=== PATIENT | male | born 1990 | race Caucasian/White ===

== ENCOUNTER 2023-07-07 19:30 | Observation (INO) | payer MEDICAID, SELFPAY ==
[2023-07-07] VITALS (8 sets, daily range): BP systolic 146–178; BP diastolic 92–127; PULSE 90–118; RESP 16–28; TEMP 36.1–37; O2SAT 97–99; BMI 40.8; BMI 41.3
[2023-07-07 20:47] LABS: Bedside Glucose > 500 mg/dL (74-106)
--- NOTE | 2023-07-07 20:48 | EKG12_ITS ---
Test Reason : GEN ILL Blood Pressure : / mmHG Vent. Rate : 103 BPM Atrial Rate : 103 BPM P-R Int : 152 ms QRS Dur : 086 ms QT Int : 342 ms P-R-T Axes : 047 012 059 degrees QTc Int : 448 ms Sinus tachycardia Cannot rule out Anterior infarct , age undetermined Abnormal ECG Confirmed by GHAZAL NEWTON, MO ([id number]), brands editor ZAHRAA BELL ([id number]) on 07/13/2023 2:06:47 PM Referred By: Confirmed By:BOBBI HARMAN MD
--- NOTE | 2023-07-07 20:49 | EX.ED.DYSGE1 ---
HPI History of Present Illness Chief Complaint: General Illness Narrative Narrative: 33-year-old male presents with generalized illness and not feeling well for the last few weeks. He endorses polyuria and polydipsia as well. Intermittently he has had nausea and vomiting. He states his insides feel like they are burning. He quit smoking over a year ago. He denies other symptoms, no fevers or chills. No exacerbating or alleviating factors. He has a generalized weakness on occasion as well. PFSH PFSH Medical History no medical history no medical history Home Medications hydrocodone-acetaminophen 5-325mg 5mg-325mg 1 - 2 tab PO Q6H PRN PRN Pain ##20 09/22/15 [Rx Last Taken Unknown] omeprazole 20 mg capsule,delayed release 20 mg PO DAILY 09/22/15 [History Last Taken Unknown] Allergy/AdvReac Type Severity Reaction Status Date / Time amoxicillin Allergy Swelling Verified 07/07/23 19:35 Social History Smoking Status: Current every day smoker tobacco type: cigarettes ROS ROS ED ROS Narrative Constitutional: No fever, no chills. Generalized weakness. HEENT: No sore throat. No neck pain. No loss of vision. No rhinorrhea. Cardiovascular: No chest pain. No palpitations. No pedal edema. Respiratory: No cough, no shortness of breath. Abdominal: No abdominal pain. Intermittent nausea and vomiting. Genitourinary: No dysuria. No hematuria. Endocrine: Polyuria. Polydipsia. Musculoskeletal: No myalgias. No arthralgias. Neurologic: No headaches. No dizziness. No lightheadedness. Skin: No rash. No change in color. Psychiatric: No depression. No anxiety. EXAM Physical Exam Narrative Exam Narrative: Afebrile. Vital signs noted. HEENT: Normocephalic. Atraumatic. PERRL, EOMI. Neck soft and supple. No point tenderness or step off. Cardiovascular: Positive tachycardia no murmurs, rubs, or gallops appreciated. Respiratory: No tachypnea. Lungs clear to auscultation bilaterally. Gastrointestinal: Abdomen soft, nontender, with normoactive bowel sounds. No rebound or guarding. Neurological: Awake. Alert. Nonfocal, nonlateralizing. Skin: No rash. Normal color. No pallor. Musculoskeletal: No pedal edema. Full range of motion extremities. Const Vital Signs: 07/07/23 19:31 07/07/23 20:34 07/07/23 20:34 Temperature 97.0 F L 98.6 F Temperature Source Temporal Temporal Pulse Rate 118 H 104 H Respiratory Rate 20 H 20 H Respiratory Effort Short of Breath Labored Respiratory Pattern Kussmaul Blood Pressure 146/127 H 178/126 H Blood Pressure Mean 133 143 Pulse Ox 98 99 Oxygen Delivery Method Room Air Room Air 07/07/23 21:38 07/07/23 21:38 07/07/23 21:42 Temperature 98.3 F Temperature Source Temporal Pulse Rate 98 98 97 Respiratory Rate 22 H 22 H 28 H Respiratory Effort Respiratory Pattern Blood Pressure 178/95 H 178/95 H 178/95 H Blood Pressure Mean 122 122 122 Pulse Ox 98 98 97 Oxygen Delivery Method Room Air Room Air Room Air 07/07/23 22:26 Temperature 98.3 F Temperature Source Temporal Pulse Rate 108 H Respiratory Rate 26 H Respiratory Effort Respiratory Pattern Blood Pressure 162/117 H Blood Pressure Mean 132 Pulse Ox 99 Oxygen Delivery Method Room Air MDM MDM MDM Narrative Medical decision making narrative: The top of the differential diagnosis is new onset diabetes. His micro blood sugar in triage was greater than 600. Additionally, now there is concern for diabetic ketoacidosis. He will be bolused 2 L and comprehensive work-up will be pursued. EG was obtained and interpreted by myself independently as sinus tachycardia at 103 bpm without ectopy or acute ST changes. No STEMI. I reviewed his laboratory work from today and he has slightly elevated white count of 14.1 which I think is nonspecific, hemoglobin 17.5 which might be hemoconcentration with hematocrit 51.4, platelet count normal at 385, CMP is significant for sodium low at 122 with potassium 5.7 but I see no acute EKG changes requiring calcium infusion. His sodium and chloride may be lowered secondary to his hyperglycemia as his glucose is 760 on his CMP. He has an anion gap elevated at 19. AST is low at 12 with ALT normal at 39 with alk phos of 155 which I think is nonspecific. Venous blood gas does show pH of 7.12 with a PCO2 of 29. His serum ketones are moderate. I do think that he does have new onset diabetes and is currently in diabetic ketoacidosis. After 2 L of normal saline infused, his blood sugar is down to the 500s according to the RN. He will be started on an insulin drip at 0.1 units/kg/h. Urinalysis obtained and reviewed which does show glucose and ketones but no evidence of infection. I do not feel antibiotics are indicated. Chest x-ray interpreted by myself independently shows no evidence of an acute process, no pneumonia or pneumothorax. I reviewed the radiology report which confirms my independent interpretation. Given his new onset diabetes and DKA, patient discussed with the hospitalist for admission to the ICU. Critical care time 32 minutes including time spent counseling patient, arranging admission, and consultation with hospitalist. Patient is in guarded but stable condition. History & Record Review Discussion w/independent historian: Patient and Significant other Additional record(s) reviewed:: Prior ED visit Lab Data Attestation: I reviewed the patient's lab results. Labs: Laboratory Results - last 24 hr 07/07/23 07/07/23 07/07/23 20:29 20:40 21:05 WBC 14.1 H RBC 5.80 Hgb 17.5 H Hct 51.4 MCV 88.6 MCH 30.2 MCHC 34.0 RDW Std Deviation 38.5 RDW Coeff of Shantel 12.0 Plt Count 385 MPV 11.2 Immature Gran % (Auto) 2.300 H Neut % (Auto) 76.8 H Lymph % (Auto) 13.7 L [place] % (Auto) 5.6 Eos % (Auto) 0.7 Baso % (Auto) 0.9 Absolute Neuts (auto) 10.8 H Absolute Lymphs (auto) 1.93 Nucleated RBC % 0 Sodium 122 L Potassium 5.7 H Chloride 92 L Carbon Dioxide 11.0 L Anion Gap 19 H BUN 21 H Creatinine 1.58 H Estim Creat Clear Calc 67.12 Est GFR (MDRD) Af Amer 66 Est GFR (MDRD) Non-Af 54 L BUN/Creatinine Ratio 13.3 Glucose 760 H* Calcium 8.8 Total Bilirubin 0.70 AST 12 L ALT 39 Alkaline Phosphatase 155 H Troponin I High Sens 26 Total Protein 8.9 H Albumin 4.4 Globulin 4.5 H Albumin/Globulin Ratio 1.0 Urine Color Yellow Urine Clarity Clear Urine pH 5.0 Ur Specific [place] 1.015 Urine Protein 30 H Urine Glucose (UA) 1000 H Urine Ketones 150 A* Urine Occult Blood 25 H Urine Nitrite Negative Urine Bilirubin Negative Urine Urobilinogen Normal Ur Leukocyte Esterase Negative Urine RBC 0 SEEN Urine WBC 0 SEEN Ur Squamous Epith Cells 0 SEEN Urine Bacteria 0 SEEN Urine Mucus 0 SEEN Acetone Level MODERATE H POC Glucose > 500 H* 07/07/23 22:24 WBC RBC Hgb Hct MCV MCH MCHC RDW Std Deviation RDW Coeff of Shantel Plt Count MPV Immature Gran % (Auto) Neut % (Auto) Lymph % (Auto) [place] % (Auto) Eos % (Auto) Baso % (Auto) Absolute Neuts (auto) Absolute Lymphs (auto) Nucleated RBC % Sodium Potassium Chloride Carbon Dioxide Anion Gap BUN Creatinine Estim Creat Clear Calc Est GFR (MDRD) Af Amer Est GFR (MDRD) Non-Af BUN/Creatinine Ratio Glucose Calcium Total Bilirubin AST ALT Alkaline Phosphatase Troponin I High Sens Total Protein Albumin Globulin Albumin/Globulin Ratio Urine Color Urine Clarity Urine pH Ur Specific [place] Urine Protein Urine Glucose (UA) Urine Ketones Urine Occult Blood Urine Nitrite Urine Bilirubin Urine Urobilinogen Ur Leukocyte Esterase Urine RBC Urine WBC Ur Squamous Epith Cells Urine Bacteria Urine Mucus Acetone Level POC Glucose > 500 H* ABG Data ABG results: ABG 07/07/23 21:21 Specimen Type POLA Sample Site Not entered VBG pH 7.17 L* VBG pO2 36 VBG HCO3 11 L VBG Total CO2 12 L VBG O2 Sat (Calc) 56 VBG Base Excess -18 L POC Mix VBG pCO2 Pt Tmp 29.4 L O2 Delivery Device Not entered Crit Call To/Read Back Yes Blood Gas Notified Whom reodica Blood Gas Notified Time 21:22:42 Radiography Diagnostic Testing: Clinical Impression(s) from Imaging Studies Chest X-Ray 07/07/23 20:52 IMPRESSION: Chest with no acute disease. Electronically Signed: Wild Hearn MD at 21:31 EDT , Management Discussion w/another healthcare provider: Hospitalist Critical Care Time Critical Care Time: Yes Critical care time (excluding procedures): 30-74 minutes (32), Including time spent:, Discussing w/Patient &/or Family/In Store Representative, Discussing w/Consultants and Arranging Admission or Transfer Discharge Plan Dx/Rx/DC Orders Clinical Impression: Diabetic ketoacidosis, Diabetes mellitus, new onset, Nausea and vomiting Disposition Disposition: Acute Care Hospital [facility]
--- NOTE | 2023-07-07 20:52 | RAD_ITS ---
INDICATION: shortness of breath EXAMINATION/TECHNIQUE: X-RAY - XR Chest 1 View COMPARISON: None. Findings: Single frontal view of the chest. LUNG PARENCHYMA: No acute focal airspace disease or mass lesion. PLEURA: No pleural effusion. No pneumothorax. HEART/GREAT VESSELS: Cardiomediastinal silhouette is unremarkable. BONES: Osseous structures are unremarkable for age. RAD/Chest 1 View (Portable) IMPRESSION: Chest with no acute disease. Electronically Signed: Wild Hearn MD at 21:31 EDT ,
[2023-07-07] MEDS: 0.9% Normal Saline (1000mL) 1,000 ML 999 ML IV ×2 (21:02→21:03)
[2023-07-07 21:09] LABS: Absolute Lymphocyte Count 1.93 X10^3/uL (0.83-4.51); Absolute Neutrophil Count 10.8 X10^3/uL (2.0-7.7); Basophil# 0.12 X10^3/uL; Basophil% 0.9 % (0-1); Eosinophils% 0.7 % (0-5); Hematocrit 51.4 % (40-54); Hemoglobin 17.5 g/dL (13.0-16.5); Lymphocyte # 1.93 X10^3/ul (0.83-4.51); Lymphocyte % 13.7 % (19-41); Mean Corpuscular Hgb 30.2 pg (27.0-32.0); Mean Corpuscular Volume 88.6 fL (80-94); Mean Platelet Vol. 11.2 fl (6.2-12.0); Monocyte# 0.79 X10^3/uL; Monocyte% 5.6 % (0-10); NRBC Flagged by Analyzer 0 % (0-5); Neutrophil # 10.84 X10^3/uL (2.7-7.7); Neutrophil % 76.8 % (47-70); Platelet Count 385 K/mm3 (150-450); RBC Distribution Width SD 38.5 fl (35.1-43.9); White Blood Count 14.1 K/mm3 (4.4-11.0)
[2023-07-07 21:17] LABS: Bacteria 0 SEEN /hpf (None Seen); Mucous, Urine 0 SEEN /hpf (<or=2+); Red Blood Cells-Urine 0 SEEN /hpf (0-5); Squamous Epithelial Cells - UA 0 SEEN /hpf (0-5); White Blood Cells 0 SEEN /hpf (0-5)
[2023-07-07 21:25] LABS: Blood Gas Specimen Type VEN; O2 Delivery Device Not entered; SITE Not entered; VBG BASE EXCESS -18 mmol/L (-1.0-3.5); VBG Bicarbonate 11 mmol/L (22-26); VBG PO2 36 mmHg (25-40); VBG SO2 56 % (50-70); VBG TCO2 12 mmol/L (23-33); VBG pCO2 29.4 mmHg (41-51); VBG pH 7.17 (7.32-7.42)
[2023-07-07 21:31] LABS: Color, Urine Yellow (Yellow); Glucose, Dipstick 1000 mg/dl (Normal); Leukocyte Esterase-Dipstick Negative /ul (Negative); Nitrite-Dipstick Negative (Negative); Occult Blood-Urine 25 /ul (Negative); Protein-Dipstick 30 mg/dl (Negative); Specific Gravity, Urine 1.015 (1.002-1.030); Urine Bilirubin Dipstick Negative (Negative); Urine Clarity Clear (Clear); Urine Urobilinogen Normal (Normal)
--- NOTE | 2023-07-07 21:33 | CM.ED ---
Social Work SW met with patient and introduced self and role as [facility] SW. Patient lying on hospital bed and agreeable to speak with SW. SW engaged patient in conversation regarding insurance and community resources. Patient reports discussing completing the Medicaid application with Ginna Holman CM, however, due to patient not feeling well he has not returned to complete. SW provided patient with Medicaid application as well as [employer] resource list. Patient receptive towards resources and reports no other needs. SW remains available if needs arise. Tomeka Hoyt AERIAL PHOTOGRAPHER, KEVIN
[2023-07-07 21:34] LABS: Ketone-Dipstick 150 mg/dl (Negative)
[2023-07-07 21:36] LABS: AST(SGOT) 12 U/L (15-37); Alanine Aminotransfer ALT/SGPT 39 U/L (16-61); Albumin, Serum 4.4 g/dL (3.2-5.0); Alkaline Phosphatase 155 U/L (45-117); Anion Gap 19 (5-15); BUN 21 mg/dL (7-18); BUN/Creat Ratio 13.3 RATIO (10-20); Calcium,Total 8.8 mg/dL (8.5-10.1); Chloride 92 mmol/L (98-107); Creatinine, Serum 1.58 mg/dL (0.70-1.30); EST Glomerular Filtration Rate 54 mL/min (>60); Est Glom Filt Rate - Afr Amer 66 mL/min (>60); Estimated Creatinine Clearance 67.12 ml/min; Globulin 4.5 g/dL (2.2-4.2); Glucose 760 mg/dL (74-106); Potassium 5.7 mmol/L (3.5-5.1); Protein, Total 8.9 g/dL (6.4-8.2); Sodium Level 122 mmol/L (136-145); Troponin-I HS 26 pg/mL (3.0-78.0)
[2023-07-07 22:42] LABS: Bedside Glucose > 500 mg/dL (74-106)
--- NOTE | 2023-07-07 22:47 | HP.PCM.HOS_ITS ---
HPI - General General Date of Admission: 07/07/23 Date of Service: 07/07/23 Chief Complaint: DKA HPI Narrative LURDES HOLDER, is a 33 M with past medical history of morbid obesity, GERD and former smoker who presented to [facility] ED on 07/07/2023 with severe hyperglycemia. Patient seen at bedside in the ED. Sitting comfortably in bed, alert and oriented, conversing normally, no acute distress. Patient states that he has had significant polyuria and polydipsia over the last 2 to 3 weeks. He does not recall having the symptoms prior to about 3 weeks ago. Denies any recent infectious symptoms. Denies any fevers or chills currently. Denies any cough or sputum production. Denies any abdominal pain or discomfort. Denies any discomfort or pain with urination. Patient states that his father and 2 grandparents have had diabetes; he thinks that they were all diagnosed with diabetes as adults. Patient states that he has been overweight for most of his life, no significant changes in his weight recently. Has not been eating well over the past few weeks. States that since IV fluids were started, he has slightly more of an appetite now than he has over the previous few days. He denies any nausea currently. No other acute concerns. Vitals in the ED notable for heart rate in 90s to 100s (sinus rhythm), moderately elevated blood pressures, otherwise normal. Labs notable for glucose 760, pH 7.12, bicarb 11, anion gap of 19, potassium 5.7, sodium 122, creatinine 1.58. UA with 1000 glucose, 150 ketones, 30 protein, negative nitrites or leukocyte esterase. Chest x-ray nonacute. [facility] Medical History no medical history Home Medications NK 07/07/23 [History Last Taken Unknown] Allergy/AdvReac Type Severity Reaction Status Date / Time amoxicillin Allergy Swelling Verified 07/07/23 19:35 Social History Smoking Status: Current some day smoker tobacco type: cigarettes and e- cigarettes ROS Constitutional Constitutional: Reports fatigue; Denies change in weight, chills or fever(s) Eyes Eyes: Denies change in vision Cardiovascular Cardiovascular: Denies chest pain, edema, lightheadedness or palpitations Respiratory/Chest Respiratory/Chest: Denies cough Gastrointestinal Gastrointestinal: Denies abdominal pain, constipation, diarrhea, nausea or vomiting Genitourinary Genitourinary: Denies dysuria Neurologic Neurologic: Denies dizziness Endocrine Endocrinology: Reports polydipsia and polyuria Vital Signs Vital Signs Vital Signs: 07/07/23 19:31 07/07/23 20:34 07/07/23 20:34 Temperature 97.0 F L 98.6 F Temperature Source Temporal Temporal Pulse Rate 118 H 104 H Respiratory Rate 20 H 20 H Respiratory Effort Short of Breath Labored Respiratory Pattern Kussmaul Blood Pressure 146/127 H 178/126 H Blood Pressure Mean 133 143 Pulse Ox 98 99 Oxygen Delivery Method Room Air Room Air 07/07/23 21:38 07/07/23 21:38 07/07/23 21:42 Temperature 98.3 F Temperature Source Temporal Pulse Rate 98 98 97 Respiratory Rate 22 H 22 H 28 H Respiratory Effort Respiratory Pattern Blood Pressure 178/95 H 178/95 H 178/95 H Blood Pressure Mean 122 122 122 Pulse Ox 98 98 97 Oxygen Delivery Method Room Air Room Air Room Air 07/07/23 22:26 Temperature 98.3 F Temperature Source Temporal Pulse Rate 108 H Respiratory Rate 26 H Respiratory Effort Respiratory Pattern Blood Pressure 162/117 H Blood Pressure Mean 132 Pulse Ox 99 Oxygen Delivery Method Room Air Weight Weight: 125.645 kg Body Mass Index (BMI) 40.8 Physical Exam Const alert, oriented x3, no apparent distress, healthy appearing and well nourished Constitutional Narrative: Pleasant male, morbidly obese, sitting comfortably in bed, conversing normally, no acute distress. General Appearance: cooperative, comfortable, well kempt and well developed HEENT normocephalic, head/scalp atraumatic, hearing grossly normal bilaterally, nasal mucous membranes and turbinates normal and moist oral mucous membranes Eyes PERRL, EOMs intact bilaterally and conjunctivae normal Neck full ROM, no lymphadenopathy and supple Lymph Lymphatic: no lymphadenopathy noted Chest inspection of chest normal Resp normal respiratory effort, normal air movement, no use of accessory muscles and clear to auscultation bilaterally Cardio regular rate, regular rhythm, no murmurs and peripheral pulses 2+ throughout GI normal to inspection, nondistended, normoactive bowel sounds, soft to palpation, non-tender and non-distended Back/Spine normal ROM Extremity normal to inspection, full ROM and no pedal edema Skin no rashes or lesions noted Psych mental status grossly normal Results Lab / Micro Data 07/07/23 20:40 07/07/23 20:40 Labs: Laboratory Results - last 24 hr 07/07/23 20:29: POC Glucose > 500 H* 07/07/23 20:40: WBC 14.1 H, RBC 5.80, Hgb 17.5 H, Hct 51.4, MCV 88.6, MCH 30.2, MCHC 34.0, RDW Std Deviation 38.5, RDW Coeff of Shantel 12.0, Plt Count 385, MPV 11 .2, Immature Gran % (Auto) 2.300 H, Neut % (Auto) 76.8 H, Lymph % (Auto) 13.7 L, Porter % (Auto) 5.6, Eos % (Auto) 0.7, Baso % (Auto) 0.9, Absolute Neuts (auto) 10.8 H, Absolute Lymphs (auto) 1.93, Nucleated RBC % 0, Sodium 122 L, Potassium 5.7 H, Chloride 92 L, Carbon Dioxide 11.0 L, Anion Gap 19 H, BUN 21 H, Creatinine 1.58 H, Estim Creat Clear Calc 67.12, Est GFR (MDRD) Af Amer 66, Est GFR (MDRD) Non-Af 54 L, BUN/Creatinine Ratio 13.3, Glucose 760 H*, Calcium 8.8, Total Bilirubin 0.70, AST 12 L, ALT 39, Alkaline Phosphatase 155 H, Troponin I High Sens 26, Total Protein 8.9 H, Albumin 4.4, Globulin 4.5 H, Albumin/Globulin Ratio 1.0, Acetone Level MODERATE H 07/07/23 21:05: Urine Color Yellow, Urine Clarity Clear, Urine pH 5.0, Ur Specific [place] 1.015, Urine Protein 30 H, Urine Glucose (UA) 1000 H, Urine Ketones 150 A*, Urine Occult Blood 25 H, Urine Nitrite Negative, Urine Bilirubin Negative, Urine Urobilinogen Normal, Ur Leukocyte Esterase Negative, Urine RBC 0 SEEN, Urine WBC 0 SEEN, Ur Squamous Epith Cells 0 SEEN, Urine Bacteria 0 SEEN, Urine Mucus 0 SEEN 07/07/23 22:24: POC Glucose > 500 H* ABG Data ABG results: ABG 07/07/23 21:21 Specimen Type POLA Sample Site Not entered VBG pH 7.17 L* VBG pO2 36 VBG HCO3 11 L VBG Total CO2 12 L VBG O2 Sat (Calc) 56 VBG Base Excess -18 L POC Mix VBG pCO2 Pt Tmp 29.4 L O2 Delivery Device Not entered Crit Call To/Read Back Yes Blood Gas Notified Whom raymundo Blood Gas Notified Time 21:22:42 Radiology Impression Chest X-Ray 07/07/23 20:52 IMPRESSION: Chest with no acute disease. Electronically Signed: Wild Hearn MD at 21:31 EDT , Assessment & Plan Assessment/Plan (1) Diabetic ketoacidosis: PLAN: Plan Patient is a 33-year-old male with past medical history of morbid obesity, GERD and former smoker who presented to [facility] ED on 07/07/2023 with severe hyperglycemia. 1. Diabetic ketoacidosis, new diagnosis of diabetes mellitus No history of diabetes. Seems most likely type 2 diabetes given patient's age, morbid obesity, family history (father, 2 grandparents with type 2 diabetes) but cannot rule out type 1 diabetes. Low concern for secondary etiology causing severe hyperglycemia, including low concern for active infection. Labs on admit with glucose 760, pH 7.12, bicarb 11, anion gap of 19, potassium 5.7, sodium 122. UA with 1000 glucose, 150 ketones. Received 2 L bolus of normal saline in the ED then initiated on insulin drip. ? Admit to ICU. Continue insulin drip with protocol. LR 150 ml/hr. BMP every 4 hours. NPO. Endocrinology consulted. Intended to send EDEN-65 antibody, however this order was not available. A1c ordered. 2. Elevated blood pressure readings May be secondary to acute stress state, but suspect patient may have underlying undiagnosed essential hypertension. BP 178/95 on admit, remain consistently in the 160s to 170s systolic with some diastolic readings in the 110s. ? IV labetalol 10 mg every 4 hours as needed ordered for now. Can consider adding oral agent as needed. 3. Suspected DARINEL Very likely prerenal in setting of volume depletion from DKA. Creatinine 1.58 on admit, BUN 21, no known baseline. ? Monitor BMP post volume resuscitation. Patient has had heavy urine output, will hold on imaging. If DARINEL does not resolve after fluids, can consider further work-up. 4. Leukocytosis WBC count of 14 on admit. Suspect most likely due to hemoconcentration in setting of significant hypovolemia from DKA. Vitals stable, patient afebrile. Chest x-ray nonacute. UA with no concern for UTI. ? Monitor CBC. Low concern for infection, hold on further work-up for now. 5. Pseudohyponatremia ? Sodium 122 on admit. Secondary to severe hyperglycemia. Corrected sodium 133. Monitor BMP. Chronic medical conditions: ? GERD: Continue home omeprazole ? Morbid obesity: BMI 41. Encouraged lifestyle modifications. DVT prophylaxis: Heparin subcu CODE STATUS: Full code, verified Expected disposition: Home, TBD Total clinical time spent by myself addressing the patient's medical issues, reviewing all the data, and collaborating with patient's care team: 55 minutes. Charges/Coding Visit Charges Inpatient E&M: 67879 Init Hosp L2
[2023-07-07] MEDS: Insulin Lispro 100 UNIT in 0.9% Normal Saline (100mL Bag) 99 ML 12.6 UNIT CONT INF (23:02)
[2023-07-07 23:27] LABS: Bedside Glucose > 500 mg/dL (74-106)
[2023-07-08] VITALS (21 sets, daily range): BP systolic 113–156; BP diastolic 70–108; PULSE 83–113; RESP 15–24; TEMP 35.8–36.2; O2SAT 95–99; BMI 41.4
[2023-07-08] MEDS: Lactated Ringers 1,000 ML 150 ML IV ×4 (00:34→20:23)
[2023-07-08 01:21] LABS: Hemoglobin A1c 12.1 % (3.8-5.6)
[2023-07-08 01:32] LABS: Anion Gap 17 (5-15); BUN 18 mg/dL (7-18); BUN/Creat Ratio 14.9 RATIO (10-20); Calcium,Total 8.4 mg/dL (8.5-10.1); Chloride 106 mmol/L (98-107); Creatinine, Serum 1.21 mg/dL (0.70-1.30); Estimated Creatinine Clearance 87.64 ml/min; Glucose 381 mg/dL (74-106); Potassium 3.8 mmol/L (3.5-5.1); Sodium Level 135 mmol/L (136-145)
[2023-07-08 02:08] LABS: Cholesterol 199 mg/dL (200); High Density Lipoprotein 20 mg/dL; Thyroid Stim Hormone (TSH) 4.64 uIU/mL (0.358-3.74); Triglycerides 642 mg/dL
[2023-07-08 02:12] LABS: EST Glomerular Filtration Rate 74 mL/min (>60); Est Glom Filt Rate - Afr Amer 89 mL/min (>60)
[2023-07-08 02:23] LABS: Bedside Glucose 321 mg/dL (74-106)
[2023-07-08 02:23] LABS: Bedside Glucose 331 mg/dL (74-106)
[2023-07-08 02:23] LABS: Bedside Glucose 405 mg/dL (74-106)
[2023-07-08 04:19] LABS: Hematocrit 43.7 % (40-54); Hemoglobin 15.2 g/dL (13.0-16.5); Mean Corp Hgb Conc 34.8 g/dL (32-36); Mean Corpuscular Hgb 30.2 pg (27.0-32.0); Mean Corpuscular Volume 86.9 fL (80-94); Mean Platelet Vol. 10.6 fl (6.2-12.0); Platelet Count 298 K/mm3 (150-450); RBC Distribution Width SD 38.1 fl (35.1-43.9); Red Blood Count 5.03 M/mm3 (4.6-6.2); White Blood Count 11.5 K/mm3 (4.4-11.0)
[2023-07-08 04:35] LABS: Anion Gap 12 (5-15); BUN 15 mg/dL (7-18); Calcium,Total 8.3 mg/dL (8.5-10.1); Chloride 108 mmol/L (98-107); Creatinine, Serum 1.07 mg/dL (0.70-1.30); EST Glomerular Filtration Rate 85 mL/min (>60); Est Glom Filt Rate - Afr Amer 103 mL/min (>60); Estimated Creatinine Clearance 99.11 ml/min; Glucose 278 mg/dL (74-106); Potassium 3.7 mmol/L (3.5-5.1); Sodium Level 137 mmol/L (136-145)
[2023-07-08] MEDS: Heparin Injection (Vial) 5,000 UNIT/ML VIAL 5000 UNIT SC ×3 (05:00→21:46)
[2023-07-08 07:14] LABS: Bedside Glucose 276 mg/dL (74-106)
[2023-07-08 07:14] LABS: Bedside Glucose 275 mg/dL (74-106)
[2023-07-08 07:14] LABS: Bedside Glucose 241 mg/dL (74-106)
[2023-07-08 07:14] LABS: Bedside Glucose 244 mg/dL (74-106)
[2023-07-08 07:14] LABS: Bedside Glucose 251 mg/dL (74-106)
[2023-07-08 08:22] LABS: Free T3 1.5 pg/mL (2.18-3.98); Free T4 0.87 ng/dL (0.76-1.46)
[2023-07-08 08:47] LABS: Anion Gap 10 (5-15); BUN 14 mg/dL (7-18); BUN/Creat Ratio 15.1 RATIO (10-20); Chloride 109 mmol/L (98-107); Creatinine, Serum 0.93 mg/dL (0.70-1.30); EST Glomerular Filtration Rate 100 mL/min (>60); Est Glom Filt Rate - Afr Amer 121 mL/min (>60); Estimated Creatinine Clearance 114.03 ml/min; Glucose 235 mg/dL (74-106); Potassium 4.1 mmol/L (3.5-5.1); Sodium Level 137 mmol/L (136-145)
[2023-07-08] MEDS: Pantoprazole Sodium 20 MG Tablet PO (09:25)
[2023-07-08 10:24] LABS: Bedside Glucose 218 mg/dL (74-106)
[2023-07-08 10:25] LABS: Bedside Glucose 226 mg/dL (74-106)
[2023-07-08] MEDS: Insulin Lispro 100 UNIT/ML INSULN.PEN SC ×3 (11:56→21:45)
[2023-07-08] MEDS: Insulin Glargine-YFGN 100 UNIT/ML Pen 10 UNIT SC (11:56)
[2023-07-08 12:05] LABS: Bedside Glucose 207 mg/dL (74-106)
--- NOTE | 2023-07-08 12:15 | CASEMGMT ---
Social Work SW introduced self and role to patient. SW discussed patient's needs with patient. Pt is listed as self-pay. SW provided a medicaid application, [email or web address] info, [employer]ire list, PCP info, and People to people resources. Pt reports he would like to apply for medicaid but he has not before and is concerned about filling out the application. SW provided support and notified patient that [employer] will be contacted for possible assistance in applying for medicaid. Pt denied any further needs. SW left voicemail for [employer] regarding medicaid assistance. Kate Luque BREWERY TECHNICIAN, DOUBLE NEEDLE OPERATOR
--- NOTE | 2023-07-08 14:40 | CASEMGMT ---
VIVIANE RICHARDSON Face to Face with patient for initial transition planning/care coordination assessment. VIVIANE RICHARDSON introduced self and role at [facility]. Patient lying in bed, alert and oriented, significant other at bedside. Patient willing to participate in assessment and is able to answer all questions appropriately. Care providers, pharmacy, and demographics verified. Patient wishes to discharge home, denies need for home health at this time. Patient states he has no further needs or concerns at this time. CM to follow for discharge planning needs that may arise. PCP: No PCP, did follow at [facility]. Specialists: none Preferred Pharmacy: [facility] Insurance: none Prescription Benefit: none Living Will/HPOA: none LNOK: significant other Living Arrangements: Patient lives with significant other in a 3 story home. Patient is independent and able to ambulate stairs. Transportation: self, significant other DME/HHC: Patient denies DME in the home. VIVIANE RICHARDSON discussed over the counter glucometer available at [facility]. Significant other states she will pickling machine operator glucometer and bring to hospital for teaching. Disposition Plan: Patient to discharge home with family support and follow-up plans in place. Pura ZAMARRIPA, RN, CM
--- NOTE | 2023-07-08 15:02 | PN_ITS ---
Subjective Subjective Patient seen and examined. He had no complaints and had an uneventful night. Review of systems is otherwise negative. Anion gap has closed twice. Review of systems is otherwise negative. Objective Data Objective Data Vital Signs: Vital Signs Temp Pulse Resp BP Pulse Ox O2 Del Method 96.9 F L 86 15 134/77 H 98 Room Air 07/08/23 13:00 07/08/23 14:00 07/08/23 14:00 07/08/23 14:00 07/08/23 14:00 07/08/23 14:00 Oxygen Delivery Method Room Air Weight: 279 lb 15.793 oz Body Mass Index (BMI) 41.4 Intake & Output: Intake and Output for Last 24 Hours 07/06/23 07/07/23 07/08/23 23:59 23:59 23:59 Intake Total 1016.65 / 1016.65 2477.18 / 2477.18 Output Total 1974 Balance 1016.65 / 1016.65 502.18 / 502.18 Lab / Micro Data 07/08/23 04:00 07/08/23 08:15 Labs: Laboratory Results - last 24 hr 07/07/23 20:29: POC Glucose > 500 H* 07/07/23 20:40: WBC 14.1 H, RBC 5.80, Hgb 17.5 H, Hct 51.4, MCV 88.6, MCH 30.2, MCHC 34.0, RDW Std Deviation 38.5, RDW Coeff of Shantel 12.0, Plt Count 385, MPV 11.2, Immature Gran % (Auto) 2.300 H, Neut % (Auto) 76.8 H, Lymph % (Auto) 13.7 L, [place] % (Auto) 5.6, Eos % (Auto) 0.7, Baso % (Auto) 0.9, Absolute Neuts (auto) 10.8 H, Absolute Lymphs (auto) 1.93, Nucleated RBC % 0, Sodium 122 L 07/07/23 20:40: Sodium Cancelled, Potassium 5.7 H 07/07/23 20:40: Potassium Cancelled, Chloride 92 L 07/07/23 20:40: Chloride Cancelled, Carbon Dioxide 11.0 L 07/07/23 20:40: Carbon Dioxide Cancelled, Anion Gap 19 H 07/07/23 20:40: Anion Gap Cancelled, BUN 21 H 07/07/23 20:40: BUN Cancelled, Creatinine 1.58 H 07/07/23 20:40: Creatinine Cancelled, Estim Creat Clear Calc 67.12 07/07/23 20:40: Estim Creat Clear Calc Cancelled, Est GFR (MDRD) Af Amer 66 07/07/23 20:40: Est GFR (MDRD) Af Amer Cancelled, Est GFR (MDRD) Non-Af 54 L 07/07/23 20:40: Est GFR (MDRD) Non-Af Cancelled, BUN/Creatinine Ratio 13.3 07/07/23 20:40: BUN/Creatinine Ratio Cancelled, Glucose 760 H* 07/07/23 20:40: Glucose Cancelled, Calcium 8.8 07/07/23 20:40: Calcium Cancelled, Total Bilirubin 0.70, AST 12 L, ALT 39, Alkaline Phosphatase 155 H, Troponin I High Sens 26, Total Protein 8.9 H, Albumin 4.4, Globulin 4.5 H, Albumin/Globulin Ratio 1.0, Acetone Level MODERATE H 07/07/23 21:05: Urine Color Yellow, Urine Clarity Clear, Urine pH 5.0, Ur Specific [place] 1.015, Urine Protein 30 H, Urine Glucose (UA) 1000 H, Urine Ketones 150 A*, Urine Occult Blood 25 H, Urine Nitrite Negative, Urine Bilirubin Negative, Urine Urobilinogen Normal, Ur Leukocyte Esterase Negative, Urine RBC 0 SEEN, Urine WBC 0 SEEN, Ur Squamous Epith Cells 0 SEEN, Urine Bacteria 0 SEEN, Urine Mucus 0 SEEN 07/07/23 22:24: POC Glucose > 500 H* 07/07/23 23:00: POC Glucose > 500 H* 07/08/23 00:06: POC Glucose 405 H 07/08/23 00:32: Sodium 135 L, Potassium 3.8, Chloride 106, Carbon Dioxide 12.0 L , Anion Gap 17 H, BUN 18, Creatinine 1.21, Estim Creat Clear Calc 87.64, Est GFR (MDRD) Af Amer 89, Est GFR (MDRD) Non-Af 74, BUN/Creatinine Ratio 14.9, Glucose 381 H, Hemoglobin A1c 12.1 H, Calcium 8.4 L, Triglycerides 642 H, Cholesterol 199, LDL Cholesterol TNP, VLDL Cholesterol TNP, HDL Cholesterol 20 L, TSH 4.64 H , Free T4 0.87, Free T3 pg/dL 1.5 L 07/08/23 01:22: POC Glucose 331 H 07/08/23 02:03: POC Glucose 321 H 07/08/23 03:00: POC Glucose 276 H 07/08/23 04:00: WBC 11.5 H, RBC 5.03, Hgb 15.2, Hct 43.7, MCV 86.9, MCH 30.2, MCHC 34.8, RDW Std Deviation 38.1, RDW Coeff of Shantel 12.0, Plt Count 298, MPV 10.6, Sodium 137, Potassium 3.7, Chloride 108 H, Carbon Dioxide 17.0 L, Anion Gap 12, BUN 15, Creatinine 1.07, Estim Creat Clear Calc 99.11, Est GFR (MDRD) Af Amer 103, Est GFR (MDRD) Non-Af 85, BUN/Creatinine Ratio 14.0, Glucose 278 H, Calcium 8.3 L 07/08/23 04:04: POC Glucose 275 H 07/08/23 04:57: POC Glucose 251 H 07/08/23 06:04: POC Glucose 244 H 07/08/23 06:56: POC Glucose 241 H 07/08/23 08:13: POC Glucose 218 H 07/08/23 08:15: Sodium 137, Potassium 4.1, Chloride 109 H, Carbon Dioxide 18.0 L , Anion Gap 10, BUN 14, Creatinine 0.93, Estim Creat Clear Calc 114.03, Est GFR (MDRD) Af Amer 121, Est GFR (MDRD) Non-Af 100, BUN/Creatinine Ratio 15.1, Glucose 235 H, Calcium 8.0 L 07/08/23 10:07: POC Glucose 226 H 07/08/23 11:47: POC Glucose 207 H ABG Data ABG results: ABG 07/07/23 21:21 Specimen Type POLA Sample Site Not entered VBG pH 7.17 L* VBG pO2 36 VBG HCO3 11 L VBG Total CO2 12 L VBG O2 Sat (Calc) 56 VBG Base Excess -18 L POC Mix VBG pCO2 Pt Tmp 29.4 L O2 Delivery Device Not entered Crit Call To/Read Back Yes Blood Gas Notified Whom raymundo Blood Gas Notified Time 21:22:42 Radiography Diagnostic Testing: Radiology Impression Chest X-Ray 07/07/23 20:52 IMPRESSION: Chest with no acute disease. Electronically Signed: Wild Hearn MD at 21:31 EDT , Physical Exam Const alert, oriented x3 and no apparent distress Constitutional Narrative: obese General Appearance: cooperative and well developed HEENT normocephalic, head/scalp atraumatic, moist oral mucous membranes and oropharynx normal Eyes PERRL and EOMs intact bilaterally Neck no lymphadenopathy, supple and no JVD Lymph Lymphatic: no lymphadenopathy noted Resp normal respiratory effort, normal air movement and clear to auscultation bilaterally Cardio regular rate, regular rhythm, S1 normal heart sound, S2 normal heart sound and no murmurs GI normal to inspection, nondistended, normoactive bowel sounds, soft to palpation, non-tender and non-distended Extremity normal capillary refill, no clubbing, cyanosis or edema and no calf tenderness General Extremity: no tenderness to palpation of joints or extremities Skin General Skin Exam: no breakdown Neuro CN's II-XII intact bilaterally, no focal motor deficits, no sensory deficits noted and deep tendon reflexes 2+ bilaterally Motor Exam: strength 5/5 throughout and general weakness Psych thought process normal, cooperative and affect normal Appearance: appropriate Assessment & Plan Assessment/Plan (1) Diabetes mellitus, new onset: (2) Diabetic ketoacidosis: PLAN: Plan #DKA in a newly diagnosed diabetes jordon * anion gap has closed twice. * A1C is elevated at 12.1 * Not a known diabetic but had had a history of polyuria and polydipsia, and had a strong family history of diabetes * anion gap had closed x 2' * will dc insulin drip and start on Insulin SQ lantus 10 units qhs * ISS. Accuchecks ACHS. * start on metformin 1000mg bid * * #DARINEL: resolved. Cr has trended down #Elevated BP: #Elevated TSH: * TSH is 4.64. Free T4 is WNL and free T3 is low at 1.5 * will repeat labs when he is out of [facility] to confirm abnormal thyroid function tests before starting treatment * #PSeudohyponatremia: resolved. Sodium is now 137 #GERD; on PPI #Morbid obesity; BMI is 41. Complicates acute care, expected recovery and prognosis. DVT prophylaxis: heparin DispositioN; transfer out of ICU Charges/Coding Visit Charges Inpatient E&M: 35496 Subs Hosp L2
[2023-07-08 18:05] LABS: Bedside Glucose 349 mg/dL (74-106)
[2023-07-08 22:07] LABS: Bedside Glucose 382 mg/dL (74-106)
[2023-07-09 02:00] VITALS: BP 133/94; PULSE 75; RESP 18; TEMP 36.2; O2SAT 96
[2023-07-09] MEDS: Insulin Lispro 100 UNIT/ML INSULN.PEN SC ×5 (02:49→20:54)
[2023-07-09 03:16] LABS: Bedside Glucose 246 mg/dL (74-106)
[2023-07-09] MEDS: Heparin Injection (Vial) 5,000 UNIT/ML VIAL 5000 UNIT SC ×2 (05:18→20:53)
[2023-07-09 08:22] LABS: Bedside Glucose 245 mg/dL (74-106)
[2023-07-09 09:07] LABS: Absolute Lymphocyte Count 1.69 X10^3/uL (0.83-4.51); Absolute Neutrophil Count 3.3 X10^3/uL (2.0-7.7); Basophil# 0.08 X10^3/uL; Basophil% 1.4 % (0-1); Eosinophil# 0.23 X10^3/uL; Hematocrit 40.5 % (40-54); Hemoglobin 13.8 g/dL (13.0-16.5); Lymphocyte # 1.69 X10^3/ul (0.83-4.51); Lymphocyte % 29.4 % (19-41); Mean Corp Hgb Conc 34.1 g/dL (32-36); Mean Corpuscular Hgb 29.9 pg (27.0-32.0); Mean Corpuscular Volume 87.9 fL (80-94); Mean Platelet Vol. 10.8 fl (6.2-12.0); Monocyte# 0.34 X10^3/uL; Monocyte% 5.9 % (0-10); NRBC Flagged by Analyzer 0 % (0-5); Neutrophil # 3.25 X10^3/uL (2.7-7.7); Neutrophil % 56.5 % (47-70); Platelet Count 202 K/mm3 (150-450); RBC Distribution Width CV 12.3 % (11.6-14.6); RBC Distribution Width SD 39.2 fl (35.1-43.9); Red Blood Count 4.61 M/mm3 (4.6-6.2); White Blood Count 5.8 K/mm3 (4.4-11.0)
[2023-07-09 09:31] LABS: Anion Gap 10 (5-15); BUN 13 mg/dL (7-18); BUN/Creat Ratio 16.5 RATIO (10-20); Chloride 109 mmol/L (98-107); Creatinine, Serum 0.79 mg/dL (0.70-1.30); EST Glomerular Filtration Rate 121 mL/min (>60); Est Glom Filt Rate - Afr Amer 147 mL/min (>60); Estimated Creatinine Clearance 134.24 ml/min; Glucose 331 mg/dL (74-106); Potassium 3.7 mmol/L (3.5-5.1); Sodium Level 136 mmol/L (136-145)
[2023-07-09 10:23] VITALS: BP 145/93; PULSE 91; RESP 16; TEMP 36.1; O2SAT 95
[2023-07-09] MEDS: Insulin Glargine-YFGN 100 UNIT/ML Pen 10 UNIT SC ×2 (10:26→20:54)
[2023-07-09] MEDS: Pantoprazole Sodium 20 MG Tablet PO (10:26)
--- NOTE | 2023-07-09 11:12 | DCINST_ITS ---
Discharge Instructions Diet Discharge Diet: 1800 Calorie Control Diet Activity Discharge Activity: Return to Normal Activity Weight Bearing Status: Weight bearing as tolerated Dressing / Incision Call your doctor if you observe: Fever of 101 or Higher, Shortness of breath, Dizziness, Swelling in the ankles and Chest pain Follow Up Care Test Results: Test results from this visit will be discussed in further detail at your follow- up appointment, if applicable. Discharge Plan Admission Admit Date/Time: 07/07/23 22:51 Primary Reason for Your Visit: DKA in a newly diagnosed diabetic Attending Provider: Tonja Lemus Primary Care Provider: Care Physician,No Primary Consulting Providers: Abraham Montano; Vijay Brady; Evelin Yanes Instructions Patient Instructions: Diabetes Blood Glucose Check Ch, Ketoacidosis Ch, Diabetes Care Ch Discharge Orders/Prescriptions Prescriptions: New insulin glargine [Lantus Solostar U-100 Insulin] 100 unit/mL (3 mL) insulin pen 10 unit subcut QPM Qty: 15 3RF metformin 500 mg tablet 500 mg PO BID Qty: 60 2RF (DME) pen needle, diabetic [BD Ultra-Fine Diana Pen Needle] 32 gauge x 5/32 needle See Rx Instructions .Route Qty: 1200 1RF Rx Instructions: bid (DME) lancets-blood glucose strips 30 gauge combo pack See Rx Instructions .Route Qty: 420 1RF Rx Instructions: As directed Referrals / Follow Up: Regulo Farrar MD [Med Staff - Active Staff] - Within 2 Weeks (see to establish PCP care) Vijay Brady MD [Med Staff - Courtesy Staff] - Within 2 Weeks (see to establish care for diabetes ) Care Physician,No Primary [Primary Care Provider] - Disposition Disposition (needs filled in before D/C Order can be placed): Home, Self Care
--- NOTE | 2023-07-09 11:13 | DS.PCM_ITS ---
Providers Date of Admission: 07/07/23 Date of Discharge: 07/10/23 Primary Care Physician: [facility] Consultations 07/07/23 23:36 Consult: Endocrinology Routine Consulting Provider: Mildred [facility] Reason for Consult: DKA, new diabetes diagnosis EMERGENT Consult: No MD Notified: Yes Date Notified: 07/07/23 Time Notified: 23:09 Method of Notification: Answering Service Reason For Visit: DKA Diagnosis Discharge Diagnosis (1) Diabetes mellitus, new onset: Status: Acute Code(s): E11.9 - Type 2 diabetes mellitus without complications (2) Diabetic ketoacidosis: Status: Acute Code(s): E11.10 - Type 2 diabetes mellitus with ketoacidosis without coma Plan #DKA in a newly diagnosed diabetes mellius * anion gap has closed twice. * A1C is elevated at 12.1 * Not a known diabetic but had had a history of polyuria and polydipsia, and had a strong family history of diabetes * anion gap had closed x 2' * will dc insulin drip and start on Insulin SQ lantus 10 units qhs * ISS. Accuchecks ACHS. * start on metformin 1000mg bid * * #DARINEL: resolved. Cr has trended down #Elevated TSH: * TSH is 4.64. Free T4 is WNL and free T3 is low at 1.5 * will repeat labs when he is out of [facility] to confirm abnormal thyroid function tests before starting treatment * #PSeudohyponatremia: resolved. Sodium is now 137 #GERD; on PPI #Morbid obesity; BMI is 41. Complicates acute care, expected recovery and prognosis. DVT prophylaxis: heparin DispositioN; transfer out of ICU Medications at Discharge Home Medications lancets 30 gauge and blood glucose strips combo pack #420 ea 07/09/23 metformin 500 mg tablet 500 mg PO BID #60 tabs 07/09/23 pen needle, diabetic 32 gauge x 5/32 (BD Ultra-Fine Diana Pen Needle) #1,200 ea 07/09/23 insulin glargine 100 unit/mL (3 mL) subcutaneous pen (Lantus Solostar U-100 Insulin) 10 unit (0.1 mL) subcut BID #15 mL 07/10/23 Hospital Course Operations None Procedures None Summary of Care Provided Minutes Spent on Discharge: 50 Hospital Course: Patient is a 33-year-old male with past medical history as outlined who was admitted through the ED on 07/07/2023 with a complaint of polyuria and poly dipsia. Symptoms have been going on for about 3 weeks prior to admission. He denied any fever or chills. He had a strong family history of diabetes. He had also not been eating well for several days prior to admission. He therefore came into the ED where he was found to have markedly elevated blood sugars. Blood sugar was 760 in the ED with ABG showing pH of 7.12 and bicarb of 11. Anion gap was 19 and potassium was elevated at 5.7 with sodium of 122. Creatinine was also 1.58. Chest x-ray showed no acute cardiopulmonary process. He was admitted and managed for DKA and newly diagnosed diabetic. He was started on insulin drip and admitted to the ICU. His gap subsequently closed x2 when he was placed on subcu insulin 10 units daily. This was titrated upwards to 10 units twice daily as blood sugars remained elevated. Blood sugar control subsequently improved. A1c was 12.1. Thyroid function test done showed elevated TSH of 4.64. Free T4 was within normal limits and free T3 was slightly low at 1.5. Recommendation was for patient to repeat labs once he was out of the ICU and out of the hospital to check to see if that thyroid function test were still abnormal for treatment to be commenced as needed by his PCP. He remained stable and was discharged on 07/10/2023. He was discharged on subcu Lantus 10 units twice daily as well as p.o. metformin 500 mg twice daily. He w as counseled to follow-up with endocrinology as well as his PCP for adjustment of his insulin dose and to be switched to newer modalities for diabetes treatment once sugars were better controlled. Patient seen and examined prior to discharge. He felt much better and had no complaints. Review of systems otherwise negative. Labs and vitals reviewed. Home medication reviewed and reconciled. Physical Exam Const alert, oriented x3, no apparent distress, healthy appearing and well nourished Constitutional Narrative: obese General Appearance: cooperative, comfortable, well kempt and well developed HEENT normocephalic, head/scalp atraumatic, hearing grossly normal bilaterally, nasal mucous membranes and turbinates normal, moist oral mucous membranes and oropharynx normal Mouth: oral and palatal mucosa normal Eyes PERRL, EOMs intact bilaterally and conjunctivae normal Neck full ROM, no lymphadenopathy, supple and no JVD Lymph Lymphatic: no lymphadenopathy noted and no lymphedema noted Chest inspection of chest normal Resp normal respiratory effort, normal air movement, no retractions, no use of accessory muscles and clear to auscultation bilaterally Cardio regular rate, regular rhythm, S1 normal heart sound, S2 normal heart sound, no murmurs and peripheral pulses 2+ throughout GI normal to inspection, nondistended, normoactive bowel sounds, soft to palpation, non-tender and non-distended Back/Spine normal ROM Extremity normal to inspection, full ROM, normal capillary refill, no clubbing, cyanosis or edema, no calf tenderness and no pedal edema General Extremity: no tenderness to palpation of joints or extremities Skin no rashes or lesions noted General Skin Exam: no breakdown Neuro oriented x3, CN's II-XII intact bilaterally, moves all extremities, no focal motor deficits, no sensory deficits noted and deep tendon reflexes 2+ bilaterally Motor Exam: strength 5/5 throughout and general weakness Psych mental status grossly normal, thought process normal, cooperative and affect normal Appearance: appropriate Weight / BMI Weight Weight: 279 lb 15.793 oz Body Mass Index (BMI) 41.4 ABG / Lab / Microbiology Data 07/10/23 03:40 07/10/23 03:40 Laboratory: Laboratory Results - last 24 hr 07/08/23 11:47: POC Glucose 207 H 07/08/23 16:40: POC Glucose 349 H 07/08/23 21:44: POC Glucose 382 H 07/09/23 02:48: POC Glucose 246 H 07/09/23 08:01: POC Glucose 245 H 07/09/23 08:53: WBC 5.8, RBC 4.61, Hgb 13.8, Hct 40.5, MCV 87.9, MCH 29.9, MCHC 34.1, RDW Std Deviation 39.2, RDW Coeff of Shantel 12.3, Plt Count 202, MPV 10.8, Immature Gran % (Auto) 2.800 H, Neut % (Auto) 56.5, Lymph % (Auto) 29.4, [place] % (Auto) 5.9, Eos % (Auto) 4.0, Baso % (Auto) 1.4 H, Absolute Neuts (auto) 3.3, Absolute Lymphs (auto) 1.69, Nucleated RBC % 0, Sodium 136, Potassium 3.7, Chloride 109 H, Carbon Dioxide 17.0 L, Anion Gap 10, BUN 13, Creatinine 0.79, Estim Creat Clear Calc 134.24, Est GFR (MDRD) Af Amer 147, Est GFR (MDRD) Non-Af 121, BUN/Creatinine Ratio 16.5, Glucose 331 H, Calcium 8.0 L D/C Instructions Discharge Diet: 1800 Calorie Control Diet Weight Bearing Status: Weight bearing as tolerated Call your doctor if you observe: Fever of 101 or Higher, Shortness of breath, Dizziness, Swelling in the ankles and Chest pain Meaningful Use Info Meaningful Use Diagnoses (Choose all that apply): None applicable Discharge Plan Admission Admit Date/Time: 07/07/23 22:51 Primary Reason for Your Visit: DKA in a newly diagnosed diabetic Attending Provider: Tonja Lemus Primary Care Provider: Care Physician,No Primary Consulting Providers: Abraham Montano; Vijay Brady; Evelin Yanes Instructions Patient Instructions: Diabetes Blood Glucose Check Ch, Ketoacidosis Ch, Diabetes Care Ch Discharge Orders/Prescriptions Prescriptions: New metformin 500 mg tablet 500 mg PO BID Qty: 60 2RF (DME) pen needle, diabetic [BD Ultra-Fine Diana Pen Needle] 32 gauge x 5/32 needle See Rx Instructions .Route Qty: 1200 1RF Rx Instructions: bid (DME) lancets-blood glucose strips 30 gauge combo pack See Rx Instructions .Route Qty: 420 1RF Rx Instructions: As directed insulin glargine [Lantus Solostar U-100 Insulin] 100 unit/mL (3 mL) insulin pen 10 unit subcut BID Qty: 15 2RF Referrals / Follow Up: Regulo Farrar MD [Med Staff - Active Staff] - Within 2 Weeks (see to establish PCP care) Vijay Brady MD [Med Staff - Courtesy Staff] - Within 2 Weeks (see to establish care for diabetes ) Care Physician,No Primary [Primary Care Provider] - Disposition Disposition (needs filled in before D/C Order can be placed): Home, Self Care Charges/Coding Visit Charges Inpatient E&M: 76076 Disch Hosp >30min
[2023-07-09 11:57] LABS: Bedside Glucose 445 mg/dL (74-106)
--- NOTE | 2023-07-09 12:00 | CASEMGMT ---
Addendum entered by Sandrine Tran 07/09/23 13:40: 1225- Received tc back from pharmacy, pt cost is $476.09 for rx. RN CM into pt room, pt states he cannot afford this. He has applied for medicaid. Discussed Rx assist, pt would like to use. He is aware this is a 1x use and will use resources provided for future rx. Pt states his sig other will bring in BGM today after she gets off of work. He believes he can figure it out. Discussed with the nurse reviewing it with him. Pt states he has been reading information given on DM. He is not interested in any services currently d/t no insurance. Rx assist tubed to retail pharmacy. Pt nurse aware of above. Original Note: TC to [facility] Retail pharmacy to check cost of medications, they have not been filled yet. They will call when they are ready.
[2023-07-09 14:46] VITALS: BP 143/89; PULSE 92; RESP 16; TEMP 36.2; O2SAT 96
--- NOTE | 2023-07-09 14:47 | PN_ITS ---
Subjective Subjective Patient seen and examined. He felt well and had no complaints. He had an uneventful night and review of systems otherwise negative. Plan was for discharge today but blood sugars have been trending upwards in the 400s after breakfast and with lunch. Discharge therefore canceled for patient to be further optimized. He has been hemodynamically stable. Objective Data Objective Data Vital Signs: Vital Signs Temp Pulse Resp BP Pulse Ox O2 Del Method 96.9 F L 91 16 145/93 H 95 Room Air 07/09/23 10:07/09/23 10:07/09/23 10:07/09/23 10:07/09/23 10:07/09/23 10:23 Oxygen Delivery Method Room Air Weight: 279 lb 15.793 oz Body Mass Index (BMI) 41.4 Intake & Output: Intake and Output for Last 24 Hours 07/07/23 07/08/23 07/09/23 23:59 23:59 23:59 Intake Total 1016.65 / 1016.65 3979.68 / 3979.68 Output Total 2700 / 2700 0 / 0 Balance 1016.65 / 1016.65 1279.68 / 1279.68 0 / 0 Lab / Micro Data 07/09/23 08:53 07/09/23 08:53 Labs: Laboratory Results - last 24 hr 07/08/23 16:40: POC Glucose 349 H 07/08/23 21:44: POC Glucose 382 H 07/09/23 02:48: POC Glucose 246 H 07/09/23 08:01: POC Glucose 245 H 07/09/23 08:53: WBC 5.8, RBC 4.61, Hgb 13.8, Hct 40.5, MCV 87.9, MCH 29.9, MCHC 34.1, RDW Std Deviation 39.2, RDW Coeff of Shantel 12.3, Plt Count 202, MPV 10.8, Immature Gran % (Auto) 2.800 H, Neut % (Auto) 56.5, Lymph % (Auto) 29.4, [place] % (Auto) 5.9, Eos % (Auto) 4.0, Baso % (Auto) 1.4 H, Absolute Neuts (auto) 3.3, Absolute Lymphs (auto) 1.69, Nucleated RBC % 0, Sodium 136, Potassium 3.7, Chloride 109 H, Carbon Dioxide 17.0 L, Anion Gap 10, BUN 13, Creatinine 0.79, Estim Creat Clear Calc 134.24, Est GFR (MDRD) Af Amer 147, Est GFR (MDRD) Non-Af 121, BUN/Creatinine Ratio 16.5, Glucose 331 H, Calcium 8.0 L 07/09/23 11:35: POC Glucose 445 H Physical Exam Const alert, oriented x3, no apparent distress, healthy appearing and well nourished Constitutional Narrative: obese General Appearance: cooperative, comfortable, well kempt and well developed HEENT normocephalic, head/scalp atraumatic, hearing grossly normal bilaterally, moist oral mucous membranes and oropharynx normal Eyes PERRL, EOMs intact bilaterally and conjunctivae normal Neck full ROM, no lymphadenopathy, supple and no JVD Lymph Lymphatic: no lymphadenopathy noted and no lymphedema noted Chest inspection of chest normal Resp normal respiratory effort, normal air movement, no use of accessory muscles and clear to auscultation bilaterally Cardio regular rate, regular rhythm, S1 normal heart sound, S2 normal heart sound, no murmurs and peripheral pulses 2+ throughout GI normal to inspection, nondistended, normoactive bowel sounds, soft to palpation, non-tender and non-distended Back/Spine normal ROM Extremity normal to inspection, full ROM, normal capillary refill, no clubbing, cyanosis or edema, no calf tenderness and no pedal edema General Extremity: no tenderness to palpation of joints or extremities Skin no rashes or lesions noted General Skin Exam: no breakdown Neuro CN's II-XII intact bilaterally, no focal motor deficits, no sensory deficits noted and deep tendon reflexes 2+ bilaterally Motor Exam: strength 5/5 throughout and general weakness Psych mental status grossly normal, thought process normal, cooperative and affect normal Appearance: appropriate Assessment & Plan Assessment/Plan (1) Diabetes mellitus, new onset: (2) Diabetic ketoacidosis: PLAN: Plan #DKA in a newly diagnosed diabetes jordon * DKA has resolved. * A1C is elevated at 12.1 * Not a known diabetic but had had a history of polyuria and polydipsia, and had a strong family history of diabetes * anion gap had closed x 2' * On Lantus 10 units daily. Blood sugar still trending in the 400s. We will make Lantus 10 units twice daily. * ISS. Accuchecks ACHS. * On metformin 500 mg twice daily. * * #DRAINEL: resolved. Cr has trended down #Elevated BP: * Blood pressure still remains elevated with systolic in the 140s. Blood pressure this morning was 145/93. * Will start patient on lisinopril 10 mg daily. #Elevated TSH: * TSH is 4.64. Free T4 is WNL and free T3 is low at 1.5 * will repeat labs when he is out of [facility] to confirm abnormal thyroid function tests before starting treatment * #Pseudohyponatremia: resolved. #GERD; on PPI #Morbid obesity; BMI is 41. Complicates acute care, expected recovery and prognosis. DVT prophylaxis: heparin DispositioN; transfer out of ICU Charges/Coding Visit Charges Inpatient E&M: 88339 Subs Hosp L2
[2023-07-09 14:58] LABS: Bedside Glucose 416 mg/dL (74-106)
[2023-07-09] MEDS: metFORMIN HCl 500 MG Tablet PO (17:05)
[2023-07-09] MEDS: Lisinopril 10 MG Tablet PO (17:05)
[2023-07-09 17:18] LABS: Bedside Glucose 386 mg/dL (74-106)
[2023-07-09] MEDS: Acetaminophen 325 MG Tablet 650 MG PO (17:57)
[2023-07-09 21:00] VITALS: BP 119/77; PULSE 76; RESP 14; TEMP 36.6; O2SAT 97
[2023-07-09 21:22] LABS: Bedside Glucose 361 mg/dL (74-106)
[2023-07-10 03:00] VITALS: BP 119/82; PULSE 81; RESP 16; TEMP 36.4; O2SAT 98
[2023-07-10 04:01] LABS: Absolute Lymphocyte Count 2.79 X10^3/uL (0.83-4.51); Absolute Neutrophil Count 3.4 X10^3/uL (2.0-7.7); Basophil% 1.4 % (0-1); Eosinophil# 0.24 X10^3/uL; Eosinophils% 3.3 % (0-5); Hematocrit 41.2 % (40-54); Lymphocyte # 2.79 X10^3/ul (0.83-4.51); Lymphocyte % 38.8 % (19-41); Mean Corpuscular Hgb 29.7 pg (27.0-32.0); Mean Corpuscular Volume 87.3 fL (80-94); Mean Platelet Vol. 10.9 fl (6.2-12.0); Monocyte# 0.41 X10^3/uL; Monocyte% 5.7 % (0-10); NRBC Flagged by Analyzer 0 % (0-5); Neutrophil # 3.38 X10^3/uL (2.7-7.7); Platelet Count 236 K/mm3 (150-450); RBC Distribution Width SD 38.6 fl (35.1-43.9); Red Blood Count 4.72 M/mm3 (4.6-6.2); White Blood Count 7.2 K/mm3 (4.4-11.0)
[2023-07-10 04:11] LABS: Bedside Glucose 257 mg/dL (74-106)
[2023-07-10 04:20] LABS: Anion Gap 8 (5-15); BUN 13 mg/dL (7-18); BUN/Creat Ratio 17.1 RATIO (10-20); Calcium,Total 8.5 mg/dL (8.5-10.1); Chloride 106 mmol/L (98-107); Creatinine, Serum 0.76 mg/dL (0.70-1.30); EST Glomerular Filtration Rate 126 mL/min (>60); Est Glom Filt Rate - Afr Amer 152 mL/min (>60); Estimated Creatinine Clearance 139.54 ml/min; Glucose 248 mg/dL (74-106); Potassium 3.3 mmol/L (3.5-5.1); Sodium Level 136 mmol/L (136-145)
[2023-07-10] MEDS: Insulin Lispro 100 UNIT/ML INSULN.PEN SC ×3 (04:24→11:23)
[2023-07-10] MEDS: Heparin Injection (Vial) 5,000 UNIT/ML VIAL 5000 UNIT SC (04:24)
[2023-07-10 06:00] VITALS: BMI 42.1
[2023-07-10] MEDS: Potassium Chloride Oral Tablet 20 MEQ 40 MEQ PO (07:54)
[2023-07-10] MEDS: Lisinopril 10 MG Tablet PO (07:54)
[2023-07-10] MEDS: Pantoprazole Sodium 20 MG Tablet PO (07:54)
[2023-07-10] MEDS: metFORMIN HCl 500 MG Tablet PO (07:54)
[2023-07-10 09:00] VITALS: BP 133/83; PULSE 84; RESP 18; TEMP 36.2; O2SAT 99
[2023-07-10 09:02] LABS: Bedside Glucose 222 mg/dL (74-106)
--- NOTE | 2023-07-10 09:17 | CASEMGMT ---
RN CM into pt room, pt states his sig other did bring in BGM yesterday and he was shown lastnight how to use. Pt feels comfortable with this. Pt is aware rx assist was sent to pharmacy. Pt denies further needs at this time.
[2023-07-10] MEDS: Insulin Glargine-YFGN 100 UNIT/ML Pen 10 UNIT SC (10:35)
--- NOTE | 2023-07-10 11:31 | DCINST_ITS ---
Discharge Instructions Diet Discharge Diet: 1800 Calorie Control Diet Activity Discharge Activity: Return to Normal Activity Weight Bearing Status: Weight bearing as tolerated Dressing / Incision Call your doctor if you observe: Fever of 101 or Higher, Shortness of breath, Dizziness, Swelling in the ankles and Chest pain Follow Up Care Test Results: Test results from this visit will be discussed in further detail at your follow- up appointment, if applicable. Discharge Plan Admission Admit Date/Time: 07/07/23 22:51 Primary Reason for Your Visit: DKA in a newly diagnosed diabetic Attending Provider: Tonja Lemus Primary Care Provider: Care Physician,No Primary Consulting Providers: Abraham Montano; Vijay Brady; Evelin Yanes Instructions Patient Instructions: Diabetes Blood Glucose Check Ch, Ketoacidosis Ch, Diabetes Care Ch Discharge Orders/Prescriptions Prescriptions: New metformin 500 mg tablet 500 mg PO BID Qty: 60 2RF (DME) pen needle, diabetic [BD Ultra-Fine Diana Pen Needle] 32 gauge x 5/32 needle See Rx Instructions .Route Qty: 1200 1RF Rx Instructions: bid (DME) lancets-blood glucose strips 30 gauge combo pack See Rx Instructions .Route Qty: 420 1RF Rx Instructions: As directed insulin glargine [Lantus Solostar U-100 Insulin] 100 unit/mL (3 mL) insulin pen 10 unit subcut BID Qty: 15 2RF Referrals / Follow Up: Regulo Farrar MD [Med Staff - Active Staff] - Within 2 Weeks (see to establish PCP care) Vijay Brady MD [Med Staff - Courtesy Staff] - Within 2 Weeks (see to establish care for diabetes ) Care Physician,No Primary [Primary Care Provider] - Disposition Disposition (needs filled in before D/C Order can be placed): Home, Self Care
[2023-07-10 11:53] LABS: Bedside Glucose 351 mg/dL (74-106)
--- NOTE | 2023-07-14 11:15 | CASEMGMT ---
Addendum entered by Sandrine Tran 07/14/23 13:03: 1135-Pt returned call. He states that 's office called and moved his appt up to Jul 23. Pt is aware that he may be able to call other providers and see if he could be seen sooner. Pt is thankful for the call and states he is feeling better and just went for a walk. Pt aware to report to ER if need be. Original Note: Received tc from Myla [employer] duty manager who states pt called in and was having blood sugars in the 400's and blurry vision and pt cannot see until Aug 06 and new PCP appt with in September. TC to 's office, spoke with Catarina to see if appt was able to moved up. She states that is the earliest appt and it is already with the RN INFORMATICS but she would put pt on cancellation list. TC to 's office, soonest appt for new pt is in September. Updated Myla on this and attempted to reach pt, left vm with request to return call.
== END 2023-07-10 12:45 | disposition home or self-care (01) | DRG 420 ==
LOC: ED 22:51 → ICU 07-08 07:22
PROVIDERS: Admitting Provider Hospitalist; Emergency Provider Emergency Medicine; Visit Provider Student in an Organized Health Care Education/Training Program
DX: E11.10 Type 2 diabetes mellitus with ketoacidosis without coma (principal); N17.9 Acute kidney failure, unspecified; Z68.41 Body mass index [BMI] 40.0-44.9, adult; E66.01 Morbid (severe) obesity due to excess calories; Z79.4 Long term (current) use of insulin; K21.9 Gastro-esophageal reflux disease without esophagitis; R94.6 Abnormal results of thyroid function studies; R03.0 Elevated blood-pressure reading, without diagnosis of hypertension; Z59.7 Insufficient social insurance and welfare support; Z79.899 Other long term (current) drug therapy; Z87.891 Personal history of nicotine dependence
CPT/HCPCS: 36415; 71045; 80048; 80053; 80061; 81001; 82009; 82803; 82962; 83036; 84439; 84443; 84481; 84484; 85025; 85027; 93005; 96361; 96365; 96366; 96372; 97802; 99221; 99285; G0378

== ENCOUNTER → 2023-07-23 | Outpatient (CLI) | payer MEDICAID, SELFPAY ==
[2023-07-23 13:48] LABS: ALB/GLOB Ratio 1.2 RATIO (0.9-2.4); AST(SGOT) 31 U/L (15-37); Alanine Aminotransfer ALT/SGPT 87 U/L (16-61); Albumin, Serum 3.7 g/dL (3.2-5.0); Alkaline Phosphatase 92 U/L (45-117); Anion Gap 7 (5-15); BUN 14 mg/dL (7-18); Calcium,Total 9.1 mg/dL (8.5-10.1); Chloride 106 mmol/L (98-107); Creatinine, Serum 0.82 mg/dL (0.70-1.30); EST Glomerular Filtration Rate 115 mL/min (>60); Est Glom Filt Rate - Afr Amer 139 mL/min (>60); Glucose 161 mg/dL (74-106); Potassium 4.2 mmol/L (3.5-5.1); Protein, Total 6.7 g/dL (6.4-8.2); Sodium Level 138 mmol/L (136-145); Thyroid Stim Hormone (TSH) 9.25 uIU/mL (0.358-3.74)
[2023-07-23 15:34] LABS: Microalbumin,Random Urine < 5.0 mg/L (NO RANGE EST.)
== END | disposition home or self-care (01) ==
LOC: BIMLAB 11:41
PROVIDERS: PCP Internal Medicine; Visit Provider Internal Medicine
DX: E11.10 Type 2 diabetes mellitus with ketoacidosis without coma (principal)
CPT/HCPCS: 36415; 80053; 82043; 82570; 84443

== ENCOUNTER → 2023-10-28 | Outpatient (CLI) | payer MEDICAID, SELFPAY ==
[2023-10-28 13:11] LABS: Thyroid Stim Hormone (TSH) 5.14 uIU/mL (0.358-3.74)
[2023-10-29 08:12] LABS: Thyroid Peroxidase AB < 9 IU/mL (0-34)
== END | disposition home or self-care (01) ==
LOC: BIMLAB 10:37
PROVIDERS: PCP Internal Medicine; Referring Provider Nurse Practitioner Family; Visit Provider Nurse Practitioner Family
DX: R94.6 Abnormal results of thyroid function studies (principal)
CPT/HCPCS: 36415; 84443; 86376

== ENCOUNTER 2023-12-12 10:30 | Emergency (ER) | payer MEDICAID, SELFPAY ==
[2023-12-12 10:31] VITALS: BP 141/94; PULSE 72; RESP 18; TEMP 36.4; O2SAT 100; BMI 40.2
--- NOTE | 2023-12-12 11:10 | EDS_ITS ---
HPI History of Present Illness Chief Complaint: Shortness of Breath Detail of Chief Complaint: Anxiety Informant: patient Onset/Context/Timing Onset: Weeks Context: gradual Timing: Intermittent Quality: Negative for Dyspnea on exertion, Orthopnea, PND or Wheezing Current Severity: Mild Maximum Severity: Mild Worsened by: Nothing and - (Patient feels it may be anxiety related. No chest pain. No fever. No cough. No hemoptysis. No leg swelling.) Relieved by: Nothing Associated Symptoms Negative for cough Chest Pain: Positive for None Narrative Narrative: 33-year-old male history of anxiety for which he is on Lexapro recently new onset diabetes started around June of last year and he is a chronic heart murmur that has had for decades. He is felt short of breath for the last 2 weeks. States he is very stressed out and thinks it may be secondary to his anxiety. No history of any cardiac disease otherwise. No history of DVT or PE or risk factors. PE Risk Factors: Negative for Cancer, OCP + Smoking + > 35, Prior DVT or PE, Recent immobilization, Recent surgery or Recent travel Prior similar symptoms: Yes Recent Illness/Hospitalization: No PFSH PFSH Medical History Arthritis Diabetes mellitus, new onset Heart murmur History of back problems Irritable bowel syndrome Home Medications lancets 30 gauge and blood glucose strips combo pack #420 ea 07/09/23 [Rx Last Taken Unknown] insulin glargine 100 unit/mL (3 mL) subcutaneous pen (Lantus Solostar U-100 Insulin) 10 unit (0.1 mL) subcut BID #15 mL 08/30/23 [Rx Last Taken Unknown] empagliflozin 25 mg tablet (Jardiance) 25 mg PO DAILY #30 tabs 10/07/23 [Rx Last Taken Unknown] pen needle, diabetic 32 gauge x 5/32 (BD Ultra-Fine Diana Pen Needle) #200 ea 10/20/23 [Rx Last Taken Unknown] escitalopram oxalate 10 mg tablet (Lexapro) 10 mg PO DAILY #30 tabs 11/10/23 [Rx Last Taken Unknown] hydroxyzine HCl 25 mg tablet 25 mg PO Q8H PRN anxiety #30 tabs 11/10/23 [Rx Last Taken Unknown] Allergy/AdvReac Type Severity Reaction Status Date / Time amoxicillin Allergy Swelling Verified 12/12/23 10:30 [facility] AdvReac Severe Diarrhea, Verified 12/12/23 10:30 Stomach Pain, Gas Family History Father Myocardial infarction, Onset Age: 50 x2 Diabetes Peptic ulcer Mother Anxiety Depression GERD (gastroesophageal reflux disease) Grandfather Cancer NHL Uncle Cancer ? leukemia Grandfather Congestive heart failure Other Arthritis Asthma Hx of ulcer disease Hypertension Severe allergy Surgical History Hx of tonsillectomy Social History household members: family current occupational status: employed current occupation: [employer] Smoking Status: Former smoker quit date: 07/19/22 pack-years: 23 Electronic Cigarette Use: not used alcohol intake: former substance use type: marijuana what type of physical activity do you participate in: walking do you feel safe at home: Yes ROS ROS ED ROS Narrative Anxiety. Dyspnea. Review of Systems ROS Unobtainable: Denies due to encephalopathy Constitutional Constitutional ED: Denies chills or fever(s) Eyes Eyes: Denies blurry vision ENT ENT ED: Denies ear pain Cardiovascular Cardiovascular: Denies chest pain Respiratory/Chest Respiratory/Chest: Reports dyspnea; Denies cough Gastrointestinal Gastrointestinal: Denies abdominal pain, constipation, diarrhea, melena, nausea or vomiting Genitourinary Genitourinary ED: Denies dysuria or hematuria Musculoskeletal Musculoskeletal: Denies arthralgias Integumentary Denies abscess Neurologic Neurologic: Denies headache(s) Psychiatric Psychiatric: Denies anxiety Endocrine Endocrinology: Denies cold intolerance Hematologic/Lymphatic Hematologic/Lymphatic: Denies easy bleeding, easy bruising or lymphadenopathy Allergic/Immunologic Allergic/Immunologic ED: Denies mouth swelling, tongue swelling or urticaria EXAM Physical Exam Narrative Exam Narrative: Well-appearing 33-year-old male. Vital signs stable afebrile. Pulse ox 100% on room air no signs of hypoxia. HEENT exam unremarkable. Neck nontender. No JVD. No lymphadenopathy. Lungs clear to auscultation bilaterally. No rales, rhonchi nor wheezing. Equal and symmetrical. Heart regular rate and rhythm rate about 70 3/6 systolic ejection murmur. History of a chronic murmur. Chest wall nontender. Abdomen soft nontender. Back nontender. Moving all 4 extremities. Calves are nontender without edema or cords. Normal motor strength. Neurologically is awake and alert no focal motor deficits. Const Vital Signs: 12/12/23 10:31 Temperature 97.6 F L Temperature Source Temporal Pulse Rate 72 Respiratory Rate 18 Blood Pressure 141/94 H Blood Pressure Mean 109 Pulse Ox 100 Oxygen Delivery Method Room Air Positive well nourished and well developed; Negative for cachectic, contractures or unkempt General Appearance ED: well developed and NAD; Negative for unkempt, cachectic, contractures or pallor Nutritional Appearance: Negative for cachectic HEENT Reports moist mucous membranes; Denies dry mucous membranes atraumatic; Negative for trauma or tenderness Mouth ED: No dry mucous membranes Mouth: No dry mucous membranes Eyes PERRL and EOMs intact bilaterally General Eye ED: Negative for pale conjunctiva or scleral icterus Neck no lymphadenopathy, supple, no meningeal signs and no JVD General: Negative for tenderness Lymph Lymphatic: Negative for other Chest Wall Chest: Negative for other Resp normal respiratory effort and clear to auscultation bilaterally Effort and Inspection: Negative for pain with movement Auscultation: Negative for rales, rhonchi or wheezes Cardio regular rate, regular rhythm, S1 normal heart sound, S2 normal heart sound and no murmurs Rate: Negative for bradycardia or tachycardic Rhythm: Negative for abnormal rhythm GI non-tender, non-distended and no masses Inspection: Negative for other Auscultation: normoactive bowel sounds Palpation: soft; Negative for tender, guarding or rebound tenderness present Bladder / Kidney Exam: No other Back/Spine no CVA tenderness and normal to inspection General Back: Negative for CVA tenderness, tenderness or other Extremity normal to inspection General Extremety ED: Negative for edema, tenderness or other findings General Extremity: Negative for edema or other findings Neuro oriented x3 and CN's II-XII intact bilaterally Sensorium / Orientation: alert, oriented to person, oriented to place and oriented to time; Negative for orientation impaired, confused, lethargic or stuporous Motor Exam: strength 5/5 throughout Psych mental status grossly normal Appearance: Negative for unkempt Attitude: No agitated and No other Mood & Affect: anxious; Negative for depressed or tearful Thought Process: normal thought process Skin no wounds General Skin Exam: Negative for jaundice or pallor Lesions: no lesions Rashes: no rashes Trauma: Negative for abrasion MDM MDM MDM Narrative Medical decision making narrative: 33-year-old male history of anxiety. Complaining of dyspnea. Exam is completely normal other than he is a 3/6 systolic ejection murmur which she has had for years. Is got no signs of fluid retention. Lungs are completely clear. There is no signs of pneumonia, pulmonary edema or any wheezing. Discussed with the patient ways to reduce his anxiety and stress. He is on medications also. I offered him an EKG and chest x-ray but explained to him most likely they would be normal he deferred. He will be discharged home to follow-up with his primary care physician. I did review the labs he had done in June and July and other new onset diabetes they were unremarkable. He has no history of anemia. Discharge Plan Triage Chief Complaint: Shortness of Breath ED Provider: Dawson Newell Dx/Rx/DC Orders Clinical Impression: Anxiety, Dyspnea Instructions: Anxiety Disorders Tx Prescriptions: No Action Jardiance 25 mg tablet 25 mg PO DAILY Qty: 30 5RF escitalopram oxalate [Lexapro] 10 mg tablet 10 mg PO DAILY Qty: 30 2RF hydroxyzine HCl 25 mg tablet 25 mg PO Q8H PRN (Reason: anxiety) Qty: 30 1RF (DME) lancets-blood glucose strips 30 gauge combo pack See Rx Instructions .Route Qty: 420 1RF Rx Instructions: As directed insulin glargine [Lantus Solostar U-100 Insulin] 100 unit/mL (3 mL) insulin pen 10 unit subcut BID Qty: 15 2RF (DME) pen needle, diabetic [BD Ultra-Fine Diana Pen Needle] 32 gauge x 5/32 needle See Rx Instructions .Route Qty: 200 1RF Rx Instructions: bid Primary Care Provider: Anabella Pro Referrals: Anabella Pro MD [Primary Care Provider] - 1-2 Weeks Activity Restrictions/Additional Instructions: Your exam today is normal. Your vital signs and oxygen are normal. I think this is all related to your anxiety. Follow-up with your doctor. Consider seeing a counselor for your anxiety. Other ways to combat anxiety would be exercise, reading, meditation etc. May want to discuss with your doctor and echocardiogram for evaluation of your heart murmur. It will probably be fine though. Disposition Disposition: Home, Self Care
[2023-12-12 11:12] VITALS: O2SAT 98
--- OUTSIDE RECORDS SUMMARY | 2023-12-12 11:19 | XMS RPT_ITS ---
Author Name Auto Yun Yun Organization OHIP PROBLEMS No Problem Records Found PROCEDURES No Procedure Records Found RESULTS CNOV Observed: 12/12/2023 10:30 AM Status: COMPLETED Source: [facility] REPOSITORY Office Visit (WSTR) LURDES HOLDER ([id number]) 1990 M Date Time Provider Department 12/12/23 10:30 AM LATONIA KEYS [facility] During your visit today, we recorded the following information about you: Latonia Keys APRN.ARTS MANAGER 12/12/2023 10:24 AM Signed Patient came in with complaints of shortness of breath chest tightness dizziness and lightheaded. Patient does say he is having on and off jaw pain. Patient says he has a significant cardiac family history. Patient also says he has terrible anxiety. Patient was started on Lexapro a month ago said he thought it was helping but over the last few days seems to be getting worse. At this time patient is being referred to the ER for full evaluation. Patient was okay with this care plan and prefers to take himself he does not want to squad called. Allergies As of Date: 12/12/2023 Noted Allergy Reaction AMOXICILLIN 11/18/2023 7 - Swelling PENICILLINS 11/18/2023 7 - Swelling Comments: throat Date Reviewed: Never Reviewed Primary Visit Diagnosis:Chest tightness [R07.89] Other Visit Diagnosis:Dizziness [R42] Prescriptions as of 12/12/2023 - JARDIANCE 25 mg tablet Take 1 tablet by mouth every afternoon. - LANTUS SOLOSTAR U-100 INSULIN 100 unit/mL (3 mL) INJECT 10 unitS (0.1 mL) subcutaneously twice a day - escitalopram oxalate (LEXAPRO) 10 mg tablet Take 1 tablet by mouth every afternoon. - hydrOXYzine HCl (ATARAX) 25 mg tablet Take 25 mg by mouth every 8 hours as needed. Problem List As Of Date: 12/12/2023 (None) Encounter Status:Closed by LATONIA KEYS on 12/12/23 PROGRESS Observed: 12/12/2023 10:19 AM Status: COMPLETED Source: [facility] REPOS[facility] HNO ID: [id number] Author: LATONIA KEYS APRN.ARTS MANAGER Service: ? Author Type: Nurse Practitioner Type: Progress Notes Filed: 12/12/2023 10:24 Note Text: Patient came in with complaints of shortness of breath chest tightness dizziness and lightheaded. Patient does say he is having on and off jaw pain. Patient says he has a significant cardiac family history. Patient also says he has terrible anxiety. Patient was started on Lexapro a month ago said he thought it was helping but over the last few days seems to be getting worse. At this time patient is being referred to the ER for full evaluation. Patient was okay with this care plan and prefers to take himself he does not want to squad called. PROGRESS Observed: 11/18/2023 9:48 AM Status: COMPLETED Source: [facility] REPOS[facility]ORY HNO ID: [id number] Author: CLEMENTINA JARQUIN MD Service: ? Author Type: Physician Type: Progress Notes Filed: 11/18/2023 09:56 Note Text: Patient presents with: Sore Throat: x this am HPI: Feeling sore throat this morning. Has had some congestion this week. His daughter has strep throat and URI symptoms. Positive symptoms: Sore throat, Nasal Congestion, Headache, feeling hot, Negative symptoms: Cough, Vomiting, Diarrhea, PAST MEDICAL HISTORY Diagnosis Date Anxiety Diabetes mellitus type 2 (HCC) MEDICATIONS: Current Outpatient Medications Medication Sig JARDIANCE 25 mg tablet Take 1 tablet by mouth every afternoon. LANTUS SOLOSTAR U-100 INSULIN 100 unit/mL (3 mL) INJECT 10 unitS (0.1 mL) subcutaneously twice a day escitalopram oxalate (LEXAPRO) 10 mg tablet Take 1 tablet by mouth every afternoon. hydrOXYzine HCl (ATARAX) 25 mg tablet Take 25 mg by mouth every 8 hours as needed. No current facility-administered medications for this visit. ALLERGIES: ALLERGIES Allergen Reactions Amoxicillin Swelling Penicillins Swelling throat VITALS: BP 126/74 Pulse 72 Temp 36.1 ?C (97 ?F) Resp 16 Wt 123.4 kg (272 lb) SpO2 96% PHYSICAL EXAM: GEN: Pleasant, in no acute distress. HEENT: PERRL, EOMI, conjunctiva clear Ears: canals clear. TMs without erythema, bulge, or effusion Sinuses: non-tender frontal sinus, non-tender maxillary sinuses Throat: moist mucous membranes, mild erythema, no exudate Neck: supple, no thyromegaly, no lymphadenopathy HEART: regular rate and rhythm, no murmurs LUNGS: clear to auscultation, no wheezes or crackles, no increased WOB ASSESSMENT/PLAN: 1. Sore throat - ICD9: 462, ICD10: J02.9 (primary diagnosis) 2. Exposure to strep throat - ICD9: V01.89, ICD10: Z20.818 - STREP A MOLECULAR (POC) - negative - suspect viral URI - Discussed supportive care treatment with rest, cold medicine, and analgesia. Clementina Jarquin MD CNOV Observed: 11/18/2023 9:45 AM Status: COMPLETED Source: [facility] Office Visit (WSTR) LURDES HOLDER ([id number]) 1990 M Date Time Provider Department 11/18/23 9:45 AM CLEMENTINA JARQUINTR During your visit today, we recorded the following information about you: Temperature Pulse Respiration Blood pressure 97 degrees 72/minute 16/minute 126/74 Weight 123.4 kg Clementina Jarquin MD 11/18/2023 9:56 AM Signed Patient presents with: Sore Throat: x this am HPI: Feeling sore throat this morning. Has had some congestion this week. His daughter has strep throat and URI symptoms. Positive symptoms: Sore throat, Nasal Congestion, Headache, feeling hot, Negative symptoms: Cough, Vomiting, Diarrhea, PAST MEDICAL HISTORY Diagnosis Date Anxiety Diabetes mellitus type 2 (HCC) MEDICATIONS: Current Outpatient Medications Medication Sig JARDIANCE 25 mg tablet Take 1 tablet by mouth every afternoon. LANTUS SOLOSTAR U-100 INSULIN 100 unit/mL (3 mL) INJECT 10 unitS (0.1 mL) subcutaneously twice a day escitalopram oxalate (LEXAPRO) 10 mg tablet Take 1 tablet by mouth every afternoon. hydrOXYzine HCl (ATARAX) 25 mg tablet Take 25 mg by mouth every 8 hours as needed. No current facility-administered medications for this visit. ALLERGIES: ALLERGIES Allergen Reactions Amoxicillin Swelling Penicillins Swelling throat VITALS: BP 126/74 Pulse 72 Temp 36.1 ?C (97 ?F) Resp 16 Wt 123.4 kg (272 lb) SpO2 96% PHYSICAL EXAM: GEN: Pleasant, in no acute distress. HEENT: PERRL, EOMI, conjunctiva clear Ears: canals clear. TMs without erythema, bulge, or effusion Sinuses: non-tender frontal sinus, non-tender maxillary sinuses Throat: moist mucous membranes, mild erythema, no exudate Neck: supple, no thyromegaly, no lymphadenopathy HEART: regular rate and rhythm, no murmurs LUNGS: clear to auscultation, no wheezes or crackles, no increased WOB ASSESSMENT/PLAN: 1. Sore throat - ICD9: 462, ICD10: J02.9 (primary diagnosis) 2. Exposure to strep throat - ICD9: V01.89, ICD10: Z20.818 - STREP A MOLECULAR (POC) - negative - suspect viral URI - Discussed supportive care treatment with rest, cold medicine, and analgesia. Clementina Jarquin MD Allergies As of Date: 11/18/2023 Noted Allergy Reaction AMOXICILLIN 11/18/2023 7 - Swelling PENICILLINS 11/18/2023 7 - Swelling Comments: throat Date Reviewed: Never Reviewed Reason for Visit: Sore Throat [200] Cmt: x this am Primary Visit Diagnosis:Sore throat [J02.9] Other Visit Diagnosis:Exposure to strep throat [Z20.818] Order(s):STREP A MOLECULAR (POC) [1302924] Order #: [id number]. #:[id number] Prescriptions as of 11/18/2023 - JARDIANCE 25 mg tablet Take 1 tablet by mouth every afternoon. - LANTUS SOLOSTAR U-100 INSULIN 100 unit/mL (3 mL) INJECT 10 unitS (0.1 mL) subcutaneously twice a day - escitalopram oxalate (LEXAPRO) 10 mg tablet Take 1 tablet by mouth every afternoon. - hydrOXYzine HCl (ATARAX) 25 mg tablet Take 25 mg by mouth every 8 hours as needed. Problem List As Of Date: 11/18/2023 (None) Letter Text Encounter Status:Closed by CLEMENTINA JARQUIN on 11/18/23 ALLERGIES DATE TYPE / CODE NAME / CODE REACTION SEVERITY SOURCE 11/18/2023 DRUG INGREDI/[id number](SN OMED CT) AMOXICILLIN SWELLING [facility] 11/18/2023 Drug Class/[id number](SNOM ED CT) PENICILLINS SWELLING [facility] ENCOUNTERS ADMIT/DISCHARGE ACCOUNT NUMBER ADMITTING ENCOUNTER CLASS LOC ATION SOURCE 12/12/2023 [id number] [id number] [facility] PAYERS ENCOUNTER GUARANTOR PAYER SUBSCRIBER SOURCE 12/12/2023 Primary Insurance:[employer] MEDICAIDPolicy Number: [id number] Date:[id number] Name:Sabino Morrison FAREED: [id number] [place], [place] [id number] [place] [address] 11/18/2023 Primary Insurance:[employer] MEDICAIDPolicy Number: [id number] Date:[id number] Name:Sabino Morrison FAREED: [id number] [place], [place] [id number] [place] [address]
[2023-12-12 11:26] VITALS: BP 141/104; PULSE 70; RESP 18; TEMP 36.6; O2SAT 98
== END 2023-12-12 11:27 | disposition home or self-care (01) ==
LOC: ED 11:16
PROVIDERS: Emergency Provider Emergency Medicine; PCP Internal Medicine; Visit Provider Emergency Medicine
DX: F41.9 Anxiety disorder, unspecified (principal); E11.9 Type 2 diabetes mellitus without complications; R06.00 Dyspnea, unspecified; F12.90 Cannabis use, unspecified, uncomplicated; Z87.891 Personal history of nicotine dependence
CPT/HCPCS: 99282

== ENCOUNTER → 2024-02-09 | Outpatient (CLI) | payer MEDICAID, SELFPAY | END | disposition home or self-care (01) | LOC: SL 13:22 | PROVIDERS: PCP Internal Medicine; Visit Provider Internal Medicine | DX: G47.10 Hypersomnia, unspecified (principal) | CPT/HCPCS: 95801; 95806 ==

== ENCOUNTER 2024-04-13 18:07 | Emergency (ER) | payer MEDICAID, SELFPAY ==
[2024-04-13] VITALS (7 sets, daily range): BP systolic 112–158; BP diastolic 77–95; PULSE 64–81; RESP 18–23; TEMP 36.5–36.6; O2SAT 95–98; BMI 43.2
--- NOTE | 2024-04-13 18:40 | RAD_ITS ---
STUDY: X-RAY CHEST REASON FOR EXAM: Male, 34 years old. CHEST PAIN TECHNIQUE: AP portable COMPARISON: July 07, 2023 FINDINGS: The lungs are clear and expanded. There is no demonstrated pleural abnormality. Normal size heart. Normal mediastinum and luca. Normal visualized pulmonary arteries. Normal visualized aortic arch and descending thoracic aorta. Normal visualized thoracic spine. Normal visualized ribs, clavicles, and shoulders. There is no demonstrated abnormality of the visualized soft tissue structures of the upper abdomen. RAD/Chest 1 View (Portable) IMPRESSION: Normal x-ray examination of the chest. Electronically Signed: Adriano Barragan MD at 19:25 EDT ,
--- NOTE | 2024-04-13 18:49 | EKG12_ITS ---
Test Reason : CHEST PAIN Blood Pressure : / mmHG Vent. Rate : 071 BPM Atrial Rate : 071 BPM P-R Int : 148 ms QRS Dur : 106 ms QT Int : 398 ms P-R-T Axes : -29 -21 139 degrees QTc Int : 432 ms Normal sinus rhythm Poor R wave progression Borderline Confirmed by Wilberto Price ([id number]), fan mail editor SWETA BARROW ([id number]) on 04/14/2024 11:14:45 AM Referred By: Confirmed By:Wilberto Price
--- NOTE | 2024-04-13 18:52 | ED.VIS.CHEST ---
HPI History of Present Illness Chief Complaint: Chest Pain Informant: patient and EMS Narrative Narrative: 34-year-old male presenting to the emergency room for the evaluation of chest pain. Patient has a history of diabetes high triglycerides and obesity. The patient states that he was sitting at his computer when he developed a pressure pain left side of his chest. It is calm down significantly but is now worse with movement. It was tender to palpation but is not currently. He denies any shortness of breath nausea or vomiting. Patient states it felt definitely different than prior anxiety attacks. He vapes. PFSH PFSH Medical History Heart murmur Irritable bowel syndrome History of back problems Arthritis Diabetes mellitus, new onset Home Medications ?Medication ?Instructions ?Recorded ?Last Taken ?Type lancets 30 gauge and blood glucose #420 ea 07/09/23 Unknown Rx strips combo pack hydroxyzine HCl 25 mg tablet 25 mg PO Q8H PRN anxiety #30 tabs 11/10/23 Unknown Rx escitalopram oxalate 10 mg tablet 10 mg PO DAILY #90 tabs 01/28/24 Unknown Rx (Lexapro) insulin glargine 100 unit/mL (3 5 unit subcut DAILY 01/28/24 Unknown History mL) subcutaneous pen (Lantus Solostar U-100 Insulin) pen needle, diabetic 32 gauge x #200 ea 01/28/24 Unknown Rx 5/32 (BD Ultra-Fine Diana Pen Needle) empagliflozin 25 mg tablet 25 mg PO DAILY #30 tabs 03/29/24 Unknown Rx (Jardiance) Allergy/AdvReac Type Severity Reaction Status Date / Time amoxicillin Allergy Swelling Verified 01/28/24 11:09 dulaglutide (From [facility]) AdvReac Severe Diarrhea, Verified 01/28/24 11:09 Stomach Pain, Gas Family History Father Myocardial infarction, Onset Age: 50 x2 Diabetes Peptic ulcer Mother Anxiety Depression GERD (gastroesophageal reflux disease) Grandfather Cancer NHL Uncle Cancer ? leukemia Grandfather Congestive heart failure Other Arthritis Asthma Hx of ulcer disease Hypertension Severe allergy Surgical History Hx of tonsillectomy Social History household members: family current occupational status: employed current occupation: [employer] Smoking Status: Former smoker quit date: 07/19/22 pack-years: 23 Electronic Cigarette Use: not used alcohol intake: former substance use type: marijuana what type of physical activity do you participate in: walking do you feel safe at home: Yes ROS ROS ED Constitutional Constitutional ED: Denies chills, fever(s) or weight loss Eyes Eyes: Denies change in vision or diplopia ENT ENT ED: Denies ear pain, rhinorrhea or sore throat Cardiovascular Cardiovascular: Reports chest pain; Denies orthopnea, palpitations or racing heartbeat Respiratory/Chest Respiratory/Chest: Denies cough, dyspnea or orthopnea Gastrointestinal Gastrointestinal: Denies abdominal pain, diarrhea, nausea or vomiting Genitourinary Genitourinary ED: Denies dysuria, hematuria or urinary frequency Musculoskeletal Musculoskeletal: Denies arthralgias or myalgias Integumentary Denies abscess or rash Neurologic Neurologic: Denies headache(s) or weakness Psychiatric Psychiatric: Denies anxiety, depression, suicidal ideation or suicidal thoughts Endocrine Endocrinology: Denies polydipsia, polyphagia or polyuria Allergic/Immunologic Allergic/Immunologic ED: Denies mouth swelling, tongue swelling or urticaria EXAM Physical Exam Const Vital Signs: 04/13/24 18:08 04/13/24 19:45 04/13/24 20:00 Temperature 97.7 F L Temperature Source Oral Pulse Rate 81 71 Respiratory Rate 18 23 H Blood Pressure 158/95 H 119/81 H Blood Pressure Mean 116 91 Pulse Ox 98 96 Oxygen Delivery Method Room Air 04/13/24 20:15 04/13/24 20:30 04/13/24 20:45 Temperature Temperature Source Pulse Rate 80 72 Respiratory Rate 22 H 18 19 H Blood Pressure Blood Pressure Mean Pulse Ox 98 97 97 Oxygen Delivery Method Positive well nourished and well developed General Appearance ED: well developed HEENT Reports normocephalic, head/scalp atraumatic and moist mucous membranes Eyes PERRL and EOMs intact bilaterally Neck no lymphadenopathy, supple and no JVD Chest Wall Chest Narrative: Patient notes that if he twists to the right and left it does seem to make the pain to left chest worse. Resp normal respiratory effort and clear to auscultation bilaterally Cardio regular rate, regular rhythm and no murmurs GI normal to inspection, nondistended, normoactive bowel sounds and non-tender Palpation: soft Back/Spine no CVA tenderness and normal ROM Extremity normal to inspection General Extremety ED: Negative for edema General Extremity: Negative for edema Neuro oriented x3 and CN's II-XII intact bilaterally Sensorium / Orientation: alert Motor Exam: strength 5/5 throughout Psych mental status grossly normal Mood & Affect: Negative for depressed or tearful Skin no rashes or lesions noted and no wounds MDM MDM MDM Narrative Medical decision making narrative: Differential diagnosis includes but not limited to pulmonary embolism ACS pneumothorax pneumonia pleural effusion aortic dissection. My independent interpretation of the chest x-ray is no acute process normal mediastinal silhouette. EKG is a normal sinus rhythm with a ventricular rate of 71 bpm. D-dimer and 2 sets of cardiac enzymes are within normal limits. White count 9.3 hemoglobin 14.7 platelet count 200. BMP within normal limits. This point I do not feel that the sedation symptoms are related to pulmonary embolism or ACS. No evidence of pneumothorax or pneumonia or dissection at this time. Symptoms could be related to muscle spasm or chest wall. Believe the patient can be discharged home. I will have him follow-up with primary care History & Record Review Discussion w/independent historian: EMS personnel and Patient Lab Data Attestation: I reviewed the patient's lab results. Labs: Laboratory Results - last 24 hr 04/13/24 04/13/24 18:23 20:30 WBC 9.3 RBC 4.88 Hgb 14.7 Hct 44.0 MCV 90.2 MCH 30.1 MCHC 33.4 RDW Std Deviation 40.4 RDW Coeff of Shantel 12.5 Plt Count 200 MPV 10.7 Immature Gran % (Auto) 1.000 H Neut % (Auto) 74.6 H Lymph % (Auto) 18.0 L Teller % (Auto) 4.3 Eos % (Auto) 1.6 Baso % (Auto) 0.5 Absolute Neuts (auto) 6.9 Absolute Lymphs (auto) 1.67 Nucleated RBC % 0 D-Dimer Quant (PE/DVT) 0.47 Sodium 137 Potassium 3.6 Chloride 106 Carbon Dioxide 25.0 Anion Gap 6 BUN 17 Creatinine 0.78 Estim Creat Clear Calc 182.03 Est GFR (MDRD) Af Amer 147 Est GFR (MDRD) Non-Af 121 BUN/Creatinine Ratio 21.7 H Glucose 89 Calcium 9.3 Troponin I High Sens 5 6 Radiography Diagnostic Testing: Clinical Impression(s) from Imaging Studies Chest X-Ray 04/13/24 18:40 IMPRESSION: Normal x-ray examination of the chest. Electronically Signed: Adriano Barragan MD at 19:25 EDT Reading Location ID and State: [facility] / [place] Tel , Service support , EKG Initial EKG: Attestation: I personally reviewed and interpreted this EKG as follows: Comments: Sinus rhythm with a ventricular rate of [address] elevation or depression noted Discharge Plan Triage Chief Complaint: Chest Pain ED Provider: Jorge Madsen Dx/Rx/DC Orders Prescriptions: No Action insulin glargine [Lantus Solostar U-100 Insulin] 100 unit/mL (3 mL) insulin pen 5 unit subcut DAILY Rx Instructions: daily at bedtime (DME) pen needle, diabetic [BD Ultra-Fine Diana Pen Needle] 32 gauge x 5/32 needle See Rx Instructions .Route Qty: 200 1RF Rx Instructions: bid escitalopram oxalate [Lexapro] 10 mg tablet 10 mg PO DAILY Qty: 90 1RF hydroxyzine HCl 25 mg tablet 25 mg PO Q8H PRN (Reason: anxiety) Qty: 30 1RF (DME) lancets-blood glucose strips 30 gauge combo pack See Rx Instructions .Route Qty: 420 1RF Rx Instructions: As directed Jardiance 25 mg tablet 25 mg PO DAILY Qty: 30 5RF Primary Care Provider: Anbaella Pro Referrals: Anabella Pro MD [Primary Care Provider] - Print Language: Slovenian
[2024-04-13 19:01] LABS: Absolute Lymphocyte Count 1.67 X10^3/uL (0.83-4.51); Absolute Neutrophil Count 6.9 X10^3/uL (2.0-7.7); Basophil# 0.05 X10^3/uL; Basophil% 0.5 % (0-1); Eosinophil# 0.15 X10^3/uL; Eosinophils% 1.6 % (0-5); Hemoglobin 14.7 g/dL (13.0-16.5); Lymphocyte # 1.67 X10^3/ul (0.83-4.51); Mean Corp Hgb Conc 33.4 g/dL (32-36); Mean Corpuscular Hgb 30.1 pg (27.0-32.0); Mean Corpuscular Volume 90.2 fL (80-94); Mean Platelet Vol. 10.7 fl (6.2-12.0); Monocyte% 4.3 % (0-10); NRBC Flagged by Analyzer 0 % (0-5); Neutrophil # 6.92 X10^3/uL (2.7-7.7); Neutrophil % 74.6 % (47-70); Platelet Count 200 K/mm3 (150-450); RBC Distribution Width CV 12.5 % (11.6-14.6); RBC Distribution Width SD 40.4 fl (35.1-43.9); Red Blood Count 4.88 M/mm3 (4.6-6.2); White Blood Count 9.3 K/mm3 (4.4-11.0)
[2024-04-13 19:11] LABS: D-Dimer Quantitative (DVT/PE) 0.47 FEU/ug/m (0.27-0.49)
[2024-04-13 19:21] LABS: Anion Gap 6 (5-15); BUN 17 mg/dL (7-18); BUN/Creat Ratio 21.7 RATIO (10-20); Calcium,Total 9.3 mg/dL (8.5-10.1); Chloride 106 mmol/L (98-107); Creatinine, Serum 0.78 mg/dL (0.70-1.30); EST Glomerular Filtration Rate 121 mL/min (>60); Est Glom Filt Rate - Afr Amer 147 mL/min (>60); Estimated Creatinine Clearance 182.03 ml/min; Glucose 89 mg/dL (74-106); Potassium 3.6 mmol/L (3.5-5.1); Sodium Level 137 mmol/L (136-145); Troponin-I HS (w/2H Reflex) 5 pg/mL (3.0-78.0)
[2024-04-13 20:58] LABS: Reflex Troponin-HS? (from REC) Y
[2024-04-13 21:22] LABS: Troponin-I HS 6 pg/mL (3.0-78.0)
== END 2024-04-13 22:23 | disposition home or self-care (01) ==
PROVIDERS: Emergency Provider Emergency Medicine; PCP Internal Medicine; Visit Provider Emergency Medicine
DX: R07.9 Chest pain, unspecified (principal); E11.9 Type 2 diabetes mellitus without complications; Z79.4 Long term (current) use of insulin; Z87.891 Personal history of nicotine dependence
CPT/HCPCS: 71045; 80048; 84484; 85025; 85379; 93005; 99284; J7040

== ENCOUNTER → 2024-04-15 | Outpatient (CLI) | payer MEDICAID, SELFPAY | END | disposition home or self-care (01) | LOC: SL 19:51 | PROVIDERS: PCP Internal Medicine; Referring Provider Internal Medicine; Visit Provider Internal Medicine | DX: G47.33 Obstructive sleep apnea (adult) (pediatric) (principal) | CPT/HCPCS: 95811 ==

== ENCOUNTER → 2024-05-19 | Outpatient (CLI) | payer MEDICAID, SELFPAY | END | disposition home or self-care (01) | LOC: SL 09:39 | PROVIDERS: PCP Internal Medicine; Referring Provider Internal Medicine; Visit Provider Internal Medicine | DX: Z00.00 Encounter for general adult medical examination without abnormal findings (principal) ==

== ENCOUNTER → 2024-07-04 | Outpatient (CLI) | payer MEDICAID, SELFPAY ==
[2024-07-04 11:26] LABS: Vitamin D,25 Hydroxy 23.5 ng/mL
[2024-07-04 11:39] LABS: Cholesterol 183 mg/dL (200); High Density Lipoprotein 34 mg/dL; Triglycerides 141 mg/dL; Very Low Density Lipoprotein 28 mg/dL (5-40)
== END | disposition home or self-care (01) ==
PROVIDERS: PCP Internal Medicine; Referring Provider Nurse Practitioner Family; Visit Provider Nurse Practitioner Family
DX: R79.89 Other specified abnormal findings of blood chemistry (principal); E11.65 Type 2 diabetes mellitus with hyperglycemia; Z79.4 Long term (current) use of insulin
CPT/HCPCS: 36415; 80061; 82306; 84443

== ENCOUNTER → 2024-08-02 | Outpatient (CLI) | payer MEDICAID, SELFPAY | END | disposition home or self-care (01) | LOC: BIMLAB 16:06 | PROVIDERS: PCP Internal Medicine; Visit Provider Internal Medicine | DX: Z11.52 Encounter for screening for COVID-19 (principal) | CPT/HCPCS: 87631 ==

== ENCOUNTER → 2025-04-26 | Outpatient (CLI) | payer MEDICAID, SELFPAY ==
[2025-04-26 12:44] LABS: Hematocrit 45.3 % (40-54); Hemoglobin 15.6 g/dL (13.0-16.5); Immature Granulocytes Count 0.140 X10^3/uL (0.0-0.0); Mean Corp Hgb Conc 34.4 g/dL (32-36); Mean Corpuscular Volume 89.9 fL (80-94); Mean Platelet Vol. 10.6 fl (6.2-12.0); NRBC Flagged by Analyzer 0 % (0-5); Platelet Count 235 K/mm3 (150-450); RBC Distribution Width CV 12.4 % (11.6-14.6); RBC Distribution Width SD 40.2 fl (35.1-43.9); Red Blood Count 5.04 M/mm3 (4.6-6.2); White Blood Count 7.7 K/mm3 (4.4-11.0)
[2025-04-26 13:48] LABS: AST(SGOT) 19 U/L (<=37); Alanine Aminotransfer ALT/SGPT 38 U/L (<=46); Albumin, Serum 4.6 g/dL (3.5-5.0); Alkaline Phosphatase 77 U/L (40-129); Anion Gap 13 (5-15); BUN 15 mg/dL (4-19); BUN/Creat Ratio 20.9 RATIO (10-20); Calcium,Total 9.2 mg/dL (7.6-11.0); Carbon Dioxide 20.0 mmol/L (21.0-32.0); Chloride 104 mmol/L (98-108); Cholesterol 195 mg/dL (<=200); Globulin 2.8 g/dL (2.2-4.2); Glucose 101 mg/dL (70-99); Low Density Lipoprotein Calc. 118 mg/dL; Potassium 4.6 mmol/L (3.3-5.1); Triglycerides 189 mg/dL; Very Low Density Lipoprotein 38 mg/dL (5-40); Vitamin D,25 Hydroxy 22.8 ng/mL (30-100); cholesterol:hdl ratio screen 5.00
[2025-04-26 17:06] LABS: Creatinine, Urine (random) 64.70 mg/dL (39.00-259.00)
[2025-04-26 17:10] LABS: Microalbumin,Random Urine < 12.0 mg/L (NO RANGE EST.)
== END | disposition home or self-care (01) ==
LOC: BIMLAB 11:10
PROVIDERS: PCP Internal Medicine; Referring Provider Internal Medicine; Visit Provider Internal Medicine
DX: E11.9 Type 2 diabetes mellitus without complications (principal); E55.9 Vitamin D deficiency, unspecified
CPT/HCPCS: 36415; 80053; 80061; 82043; 82306; 82570; 85025

== ENCOUNTER 2025-05-15 05:41 | Day surgery (SDC) | payer MEDICAID, SELFPAY ==
--- NOTE | 2025-05-04 10:19 | EKG12_ITS ---
Test Reason : PREOP Blood Pressure : */* mmHG Vent. Rate : 62 BPM Atrial Rate : 62 BPM P-R Int : 148 ms QRS Dur : 98 ms QT Int : 406 ms P-R-T Axes : 43 -4 30 degrees QTcB Int : 412 ms Normal sinus rhythm with sinus arrhythmia Normal ECG Confirmed by MAGALIE NEWTON, GREYSON ([id number]), photograph editor ZAHRAA BELL ([id number]) on 05/05/2025 9:03:08 AM Referred By: Wild Vo Confirmed By: GREYSON MEJIAS MD
--- NOTE | 2025-05-04 13:58 | PAT.ANESEVAL ---
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 When Was Last Pacemaker Check QUESTION #4 FULL TEXT: You/Your Family Experience fever (hyperthermia) with Anesthesia Last Oral Intake Last Oral intake: Last Oral Intake NPO since Meds taken in AM with sips of water? Meds patient instructed to take am of surgery PONV PONV - contemporary or modern dancer: PONV - contemporary or modern dancer Female No 05/03/25 13:10 HX of Motion Sickness No 05/03/25 13:10 HX of N/V After Surgery No 05/03/25 13:10 Non-Smoker No 05/03/25 13:10 Duration of Surgery greater No 05/03/25 13:10 than 60 minutes Number of Risk Factors PONV Score Height & Weight Height & Weight: Anesthesia: Height & Weight Height 5 ft 9 in 05/01/25 09:48 Respiratory Assessment Respiratory Assessment - contemporary or modern dancer: Respiratory Tract Infection Hx - contemporary or modern dancer Hx Respiratory Tract Infection No 05/03/25 13:10 STOP Sleep Apnea STOP Sleep Apnea - contemporary or modern dancer: STOP Sleep Apnea - contemporary or modern dancer Hx Hypertension No 05/03/25 13:10 Hx Sleep Apnea Yes 05/03/25 13:10 CPAP Yes: MILD/NO MACHINE FOR 6 05/03/25 13:10 MONTHS BIPAP No 05/03/25 13:10 Do you snore loudly (louder than talking or can be heard Do you often feel tired/ fatigued/ sleepy during daytime? Has anyone observed you stop breathing during sleep? STOP Results Positive 05/03/25 13:10 QUESTION #5 FULL TEXT : Do you snore loudly (louder than talking or can be heard through closed doors)? 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 Specify any problems Hx of Preganancy in last 3 N/A 05/03/25 13:10 Months Nurse Filling Out Transfusion DSCHRIBER 05/03/25 13:10 & Questions: Date: 05/03/25 05/03/25 13:10 Time: 13:12 05/03/25 13:10 Patient unable to answer at this time (ie. confused, unrespo /Reproduction History /Reproductive History - contemporary or modern dancer: /Reproductive Hx- contemporary or modern dancer Hx Now No 05/03/25 13:10 Gestational Age (in weeks): EDC: Hx Hx Para Hx Section SAB No 05/03/25 13:10 PFSH Medical History (Updated 05/03/25 @ 13:18 by Jane Blancas) Depression Anxiety Marijuana use Arthritis Diabetes Back pain Dietary restriction History of IBS Gastric reflux CPAP (continuous positive airway pressure) dependence Leg cramps Vapes nicotine containing substance Non-smoker Cardiology follow-up encounter Heart murmur Umbilical hernia Home Medications ?Medication ?Instructions ?Recorded ?Last Taken ?Type lancets 30 gauge and blood glucose #420 ea 07/09/23 Unknown Rx strips combo pack hydroxyzine HCl 25 mg tablet 25 mg PO Q8H PRN anxiety #30 tabs 11/10/23 Unknown Rx pen needle, diabetic 32 gauge x #200 ea 01/28/24 Unknown Rx (BD Ultra-Fine Diana Pen Needle) Potassium OTC 1 tab PO DAILY 07/04/24 Unknown History cholecalciferol (vitamin D3) 25 25 mcg PO QDAY 08/02/24 Unknown History mcg (1,000 unit) capsule buspirone 5 mg tablet 5 mg PO BID PRN anxiety #20 tabs 04/26/25 Unknown Rx empagliflozin 25 mg tablet 25 mg PO DAILY #90 tabs 04/26/25 Unknown Rx (Jardiance) escitalopram oxalate 10 mg tablet 10 mg PO DAILY #90 tabs 04/26/25 Unknown Rx (Lexapro) Allergy/AdvReac Type Severity Reaction Status Date / Time Penicillins Allergy Severe Anaphylaxis Verified 05/03/25 13:07 dulaglutide (From [facility]) AdvReac Severe Diarrhea, Verified 05/03/25 13:07 Stomach Pain, Gas Family History Father Myocardial infarction, Onset Age: 50 x2 Diabetes Peptic ulcer Mother Anxiety Depression GERD (gastroesophageal reflux disease) Grandfather Cancer NHL Uncle Cancer ? leukemia Grandfather Congestive heart failure Other Arthritis Asthma Hx of ulcer disease Hypertension Severe allergy Surgical History (Updated 05/03/25 @ 13:18 by Jane Blancas) Hx of tonsillectomy Social History (Updated 05/01/25 @ 09:50 by Emani Osborn LPN) household members: family current occupational status: employed current occupation: [employer] Smoking Status: Current every day smoker tobacco type: cigarettes and e-cigarettes Electronic Cigarette Use: not used alcohol intake: former substance use type: marijuana what type of physical activity do you participate in: walking do you feel safe at home: Yes Audit: Pertinent Findings Pertinent Findings EKG Perinent findings: EKG 04/13/2024. Normal sinus rhythm Recommendation Anesthesia Recommendation Anesthesia recommendation: OPTIMIZED for anesthesia
[2025-05-15] VITALS (10 sets, daily range): BP systolic 123–154; BP diastolic 82–139; PULSE 65–99; RESP 16–22; TEMP 36.3–36.6; O2SAT 94–99; BMI 42.6
--- OUTSIDE RECORDS SUMMARY | 2025-05-15 05:44 | XMS RPT_ITS | CCD ---
Author Organization [facility] Care Team Providers Care Emergency Response Technician Name Role Phone Care Physician, No Primary Primary Care Provider Unavailable MD Felton Fonseca Emergency Provider Dr. Abraham Montano Admit Provider [phone] Abraham Montano Other Provider Dr. Tonja Lemus Attending Provider Dr. Tonja Lemus Other Provider [phone] Dr. Vijay Brady Other Provider ONEAL Yanes Other Provider [phone] [facility] Care Physician, No Primary Referring Provider Un available Dr. Anabella Pro Attending Provider [phone] ONEAL Yanes Attending Provider Dr. Anabella Pro Primary Care Provider Dr. Anabella Pro Referring Provider [phone] Dr. Anabella Pro Primary Care Provider ONEAL Yanes Attending Provider Dr. Anabella Pro Attending Provider Unavailable Primary Care Provider UnavailDr. Anabella Royal Primary Care Provider Dr. Anabella Pro Attending Provider [phone] Dr. Anabella Pro Referring Provider ONEAL Yanes Attending Provider [place] MD, Dr. Anabella Primary Care Provider [phone] Morteza NEWTON, Dr. Kyle Attending Provider Morteza NEWTON, Dr. Kyle Referring Provider Tavo NEWTON, Dr. Rome Attending Provider Wild Vo Referring Unavailable Arely, William Attending Unavailable Morteza, Anabella Primary Care Unavailable [place], Anabella Attending Unavailable Morteza, Anabella Referring Unavailable [place], Anabella Primary Care Unavailable YousufabrWild page Attending Unavailable [place], Anabella Referring Unavailable Morteza, Anabella Primary Care Unavailable [place], Anabella Primary Care Unavailable Morteza, Anabella Attending Unavailable Wild Vo Referring Unavailable CalabrWild page Attending Unavailable Morteza, Anabella Primary Care Unavailable Morteza, Anabella Attending Unavailable [place], Anabella Referring Unavailable [place], Anabella Primary Care Unavailable [place], Anabella Primary Care Unavailable Morteza, Anabella Attending Unavailable Morteza, Anabella Referring Unavailable Morteza, Anabella Primary Care Unavailable Evelin Yanes Attending Unavailable Joaquín, Evelin Referring Unavailable Morteza, Anabella Primary Care Unavailable Evelin Yanes Attending Unavailable Morteza, Anabella Referring Unavailable [place], Anabella Primary Care Unavailable [place], Anabella Attending Unavailable [place], Anabella Referring Unavailable Morteza, Anabella Primary Care Unavailable Morteza, Anabella Attending Unavailable Morteza, Anabella Referring Unavailable Morteza, Anabella Primary Care Unavailable Erik Gamboa Attending Unavailable [place], Anabella Referring Unavailable Allergies Allergy Classification Reported Allergen(s) Allergy Type Date of Onset Reaction(s) Facility (5 sources) Amoxicillin Drug Allergy [address] [facility] (6 sources) dulaglutide Drug Allergy 4 Diarrhea, Stomach Pain, Gas [facility] (1 source) metFORMIN Drug Allergy [address] [facility] (1 source) Penicillins Drug Intolerance 4 Swelling [facility] Work Phone: (3 sources) Penicillins Allergy to substance [address] [facility] Comment on above: severe w/ amoxicilli n (1 source) Amoxicillin Drug Allergy 5 [facility] (1 source) dulaglutide Drug Allergy 5 [facility] (1 source) Penicillins Drug allergy (disorder) 5 [facility] Medications Current Medications Medication Drug Class(es) Dates Sig (Normalized) Sig (Original) benzonatate 200 mg oral capsule (3 sources) Non-narcotic Antitussive Start: 12-14-2024 take 1 capsule by mouth three times daily as needed for cough Benzonatate 200 mg capsule Active 200 mg PO THREE TIMES A DAY as needed for cough 20 December 14, 2024 1:00am busPIRone hydrochloride 5 mg oral tablet (3 sources) Start: 04-26-2025 take 1 tablet by mouth twice daily as needed for anxiety Buspirone 5 mg tablet Active 5 mg PO TWICE A DAY as needed for anxiety 20 April 26, 2025 12:00am cholecalciferol 0.025 mg oral capsule (3 sources) Vitamin D Start: 08-02-2024 take 1 capsule by mouth once daily Cholecalciferol (Vitamin D3) 25 mcg (1,000 unit) capsule Active 25 ug PO daily August 02, 2024 12:00am hydrOXYzine hydrochloride 25 mg oral tablet (6 sources) Antihistamine Start: 11-10-2023 take 1 tablet by mouth every eight hours as needed for anxiety Hydroxyzine Hcl 25 mg tablet Active 25 mg PO Q8H as needed for anxiety 30 November 10, 2023 1:00am Comment on above: Take 25 mg by mouth every 8 hours as needed. [place] (Nk) (1 source) Start: 07-07-2023 [place] (Nk) Active July 07, 2023 12:00am Potassium (3 sources) Start: 07-04-2024 Potassium OTC Active 1 {tbl} PO DAILY as needed July 04, 2024 12:00am Completed/Discontinued Medications Medication Drug Class(es) Dates Sig (Normalized) Sig (Original) acetaminophen 325 mg / HYDROcodone bitartrate 5 mg oral tablet (7 sources) Opioid Agonist Start: 09-22-2015 End: 07-07-2023 Hydrocodone-Acetami nophen 1 TABLET tablet Discontinued 1 - 2 {tbl} PO EVERY 6 HOURS NEEDED as needed for Pain September 22, 2015 5:23pm July 07, 2023 11:13pm causes drowsiness Start: 09-22-2015 End: 07-07-2023 take 1 tablet by mouth every six hours as needed Hydrocodone-Acetaminophen Discontinued 1 - 2 TABLET PO EVERY 6 HOURS NEEDED September 22, 2015 5:23pm July 07, 2023 11:13pm causes drowsiness betamethasone 0.5 mg/ml / clotrimazole 10 mg/ml topical lotion (6 sources) Azole Antifungal, Corticosteroid Start: 10-27-2024 End: 11-10-2024 Clotrimazole-Betamethasone 1-0.05 % lotion Discontinued 1 NMA TOPICAL TWICE A DAY 30 14 0 October 27, 2024 10:12am November 09, 2024 1:00am November 10, 2024 1:09am Start: 04-26-2024 End: 05-10-2024 Clotrimazole-Betamethasone 1 -0.05 % lotion Discontinued 1 NMA TOPICAL TWICE A DAY 30 14 0 April 26, 2024 12:00am May 09, 2024 12:00am May 10, 2024 12:05am 0.5 ml dulaglutide 3 mg/ml auto-injector (6 sources) GLP-1 Receptor Agonist Start: 09-07-2023 End: 10-07-2023 Dulaglutide (Trulicity) 1.5 mg/0.5 mL pen injector Discontinued 1.5 mg SC EVERY WEEK 2 3 September 07, 2023 1:00am October 07, 2023 4:37pm Recent onset of diabetes mellitus Type 2 diabetes mellitus without complications empagliflozin 25 mg oral tablet (19 sources) Sodium-Glucose Cotransporter 2 Inhibitor Start: 10-07-2023 End: 04-26-2025 take 1 tablet by mouth once daily Empagliflozin (Jardiance) 25 mg tablet Discontinued 25 mg PO DAILY 30 0 September 30, 2024 5:43pm October 27, 2024 10:35am Recent onset of diabetes mellitus Type 2 diabetes mellitus without complications Comment on above: Take 1 tablet by raf th every afternoon. escitalopram 10 mg oral tablet (19 sources) Serotonin Reuptake Inhibitor Start: 11-10-2023 End: 04-26-2025 take 1 tablet by mouth once daily Escitalopram Oxalate (Lexapro) 10 mg tablet Discontinued 10 mg PO DAILY 90 October 19, 2024 7:12pm April 26, 2025 10:54am Comment on above: Take 1 tablet by raf th every afternoon. fexofenadine hydrochloride 180 mg oral tablet (3 sources) Histamine-1 Receptor Antagonist Start: 08-02-2024 End: 04-26-2025 take 1 tablet by mouth every twenty-four hours Fexofenadine (Landy Allergy) 180 mg tablet Discontinued 180 mg PO Q24H 10 August 02, 2024 12:00am April 26, 2025 10:20am fluticasone propionate 0.05 mg/actuat metered dose nasal spray (3 sources) Corticosteroid Start: 08-02-2024 End: 04-26-2025 take 50 ug nasal route once daily Fluticasone Propionate (Flonase Allergy Relief) 50 mcg/actuation spray,suspension Discontinued 1 NMA INTRANASAL daily 16 August 02, 2024 12:00am April 26, 2025 10:20am administer into each nostril 3 ml insulin glargine 100 unt/ml pen injector (17 sources) Insulin Analog Start: 01-28-2024 End: 04-26-2024 Insulin Glargine (Lantus Solostar U-100 Insulin) 100 unit/mL (3 mL) insulin pen Discontinued 5 U SC DAILY January 28, 2024 11:10am April 26, 2024 9:13am daily at bedtime Start: 08-31-2023 inject 10 [IU] by nam bcutaneous injection twice daily LANTUS SOLOSTAR U-100 INSULIN 100 unit/mL (3 mL) INJECT 10 unitS (0.1 mL) subcutaneously twice a day 0 08/31/2023 Active Start: 07-10-2023 End: 01-28-2024 Insulin Glargine (Lantus Audrey ostar U-100 Insulin) 100 unit/mL (3 mL) insulin pen Discontinued 10 U SC TWICE A DAY 15 August 30, 2023 7:28pm January 28, 2024 11:10am Comment on above: INJECT 10 unitS (0.1 mL) subcutaneously twice a day metFORMIN hydrochloride 500 mg oral tablet (6 sources) Biguanide Start: 2022 End: 2022 take 1 tablet by mouth twice daily Metformin 500 mg tablet Discontinued 500 mg PO TWICE A DAY 60 July 09, 2023 12:00am August 06, 2023 11:22am On Hold: Order Changed methylPREDNISolone 4 mg oral tablet (3 sources) Corticosteroid Start: 2024 End: 2024 take 1 tablet by mouth once Methylprednisolone (Medrol (Luis Manuel)) 4 mg tablets,dose pack Discontinued 0 PO per package directions 21 December 14, 2024 1:00am April 26, 2025 10:20am PO PER PKG DIR omeprazole 20 mg delayed release oral capsule (7 sources) Proton Pump Inhibitor Start: 2014 End: 2022 take 1 capsule by mouth once daily Omeprazole 20 MG capsule Discontinued 20 mg PO DAILY September 22, 2015 1:00am July 07, 2023 11:13pm Tirzepatide (Mounjaro) 2.5 mg/0.5 mL pen injector (6 sources) Start: 2022 End: 2022 Tirzepatide (Mounjaro) 2.5 mg/0.5 mL pen injector Discontinued 2.5 mg SC EVERY WEEK July 23, 2023 12:00am August 19, 2023 12:00am August 20, 2023 12:05am Start: 07-23-2023 End: 08-20-2023 Tirzepatide (Mounjaro) 2.5 m g/0.5 mL pen injector Discontinued 2.5 MG SC EVERY WEEK 12 16July 23, 2023 12:00am August 20, 2023 12:05am Start: 07-23-2023 End: 08-20-2023 Tirzepatide (Mounjaro) 2.5 m g/0.5 mL pen injector Discontinued 2.5 MG SC EVERY WEEK 12 16July 22, 2023 11:00pm August 19, 2023 11:05pm Tirzepatide (Mounjaro) 5 mg/ 0.5 mL pen injector (6 sources) Start: 09-03-2023 End: 09-07-2023 Tirzepatide (Mounjaro) 5 mg/ 0.5 mL pen injector Discontinued 5 mg SC EVERY WEEK 2 4 September 03, 2023 1:00am September 07, 2023 9:22am Start: 09-03-2023 End: 09-07-2023 Tirzepatide (Mounjaro) 5 mg/ 0.5 mL pen injector Discontinued 5 MG SC EVERY WEEK 2 September 03, 2023 1:00am September 07, 2023 9:22am Start: 09-03-2023 End: 09-07-2023 Tirzepatide (Mounjaro) 5 mg/ 0.5 mL pen injector Discontinued 5 MG SC EVERY WEEK 2 September 03, 2023 12:00am September 07, 2023 8:22am Problems Active Problems Problem Classification Problem Date Documented Da te Episodic/Chronic Abdominal hernia (12 sources) Umbilical hernia without obstruction AND without gangrene ; Translations: [Umbilical hernia] Onset: 04-26-2025 Episodic Administrative/social admission (1 source) Persons encountering health services in other specified circumstances; Translations: [Other reasons for seeking consultation] 07-23-2023 Episodic Anxiety disorders (20 sources) Mild anxiety; Translations: [Anxiety disorder, unspecified] 07-23-2023 Chronic Conditions associated with dizziness or vertigo (1 source) Dizziness; Translations: [Dizziness and giddiness] 12-12-2023 Episodic Diabetes mellitus with complications (12 sources) Diabetic ketoacidosis; Translations: [Type 2 diabetes mellitus with ketoacidosis without coma] Onset: 04-26-2025 07-07-2023 Chronic Diabetes mellitus without complication (20 sources) Newly diagnosed diabetes; Translations: [Type 2 diabetes mellitus without complications] Onset: 05-01-2025 07-07-2023 Chronic Disorders of lipid metabolism (7 sources) Hypertriglyceridemia; Translations: [Pure hyperglyceridemia] 08-06-2023 Chronic Heart valve disorders (6 sources) Heart murmur; Translations: [Cardiac murmur, unspecified] 07-23-2023 Episodic Immunizations and screening for infectious disease (1 source) Encounter for immunization; Translations: [Need for prophylactic vaccination and inoculation against unspecified single disease] 07-23-2023 Episodic Mood disorders (6 sources) Major depressive disorder, single episode, moderate; Translations: [Major depressive affective disorder, single episode, moderate] 11-10-2023 Chronic Nausea and vomiting (9 sources) Nausea and vomiting; Translations: [Nausea with vomiting, unspecified] 07-07-2023 Episodic Nonspecific chest pain (4 sources) Tight chest; Translations: [Other chest pain] 12-12-2023 Episodic Nutritional deficiencies (4 sources) Vitamin D deficiency; Translations: [Vitamin D deficiency, unspecified] Onset: 04-26-2025 04-26-2025 Chronic Osteoarthritis (6 sources) Arthritis; Translations: [Unspecified osteoarthritis, unspecified site] 07-23-2023 Chronic Comment on above: hand Other aftercare (1 source) Encounter for follow-up examination after completed treatment for conditions other than malignant neoplasm; Translations: [Other follow-up examination] 07-23-2023 Episodic Other aftercare (1 source) 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; Translations: [custodial (current) use of insulin] Onset: 04-26-2025 Episodic Other circulatory disease (1 source) Elevated blood-pressure reading, without diagnosis of hypertension; Translations: [Elevated blood pressure reading without diagnosis of hypertension] 07-23-2023 Episodic Other connective tissue disease (1 source) Other symptoms and signs involving the nervous system; Translations: [Other symptoms involving nervous and musculoskeletal systems] 01-28-2024 Episodic Other connective tissue disease (3 sources) H/O: back problem; Translations: [Personal history of other diseases of the musculoskeletal system and connective tissue] 07-23-2023 Episodic Other gastrointestinal disorders (6 sources) Irritable bowel syndrome; Translations: [Irritable bowel syndrome without diarrhea] 07-23-2023 Chronic Other gastrointestinal disorders (5 sources) Irritable bowel syndrome without diarrhea; Translations: [Irritable bowel syndrome] 07-23-2023 Chronic Other lower respiratory disease (5 sources) Dyspnea; Translations: [Dyspnea, unspecified] 12-12-2023 Episodic Other nutritional; endocrine; and metabolic disorders (6 sources) Obesity; Translations: [Obesity, unspecified] 08-06-2023 Chronic Other nutritional; endocrine; and metabolic disorders (4 sources) Obesity, unspecified; Translations: [Obesity, unspecified] 08-06-2023 Chronic Residual codes; unclassified (3 sources) Obstructive sleep apnea syndrome; Translations: [Obstructive sleep apnea (adult) (pediatric)] 04-26-2025 Chronic Residual codes; unclassified (1 source) Immunization not carried out because of patient refusal; Translations: [Vaccination not carried out because of patient refusal] 07-23-2023 Episodic Residual codes; unclassified (3 sources) Viral syndrome; Translations: [Other general symptoms and signs] 10-27-2024 Episodic Unclassified (8 sources) H/O: back problem; Translations: [History of back problems] 07-23-2023 Unclassified (6 sources) K42.9 - Umbilical hernia without obstruction or gangrene Unclassified (1 source) Cough, unspecified; Translations: [Cough, unspecified] Onset: 12-15-2024 Unclassified (1 source) Encounter for screening for COVID-19; Translations: [Encounter for screening for COVID-19] Onset: 08-24-2024 Past or Other Problems Problem Classification Problem Date Documented Da te Episodic/Chronic Other screening for suspected conditions (not mental disorders or infectious disease) (15 sources) Raised TSH level; Translations: [Other specified abnormal findings of blood chemistry] Onset: 07-27-2024 08-06-2023 Episodic Residual codes; unclassified (1 source) Other general symptoms and signs; Translations: [Other general symptoms and signs] Onset: 08-02-2024 Episodic Results Test Name Value Interpretation Reference Range Facility 12 Lead EKGon 05-04-[address] [facility] [address] [place] [address] 12 Lead EKG 05/04/25 1024 MR#: [id number] Acct: [id number] Name: LURDES LENZ Rep #: [id number] : 1990 35 From: William Mcgee MD Attending Dr: Dr. Wild Vo MD Status: PRE [facility] Ordering Dr: Teofilo Mendoza MD Date: 05/04/25 Location: [facility] Sex: M C Admitted: Test Reason : PREOP Blood Pressure : */* mmHG Vent. Rate : 62 BPM Atrial Rate : 62 BPM P-R Int : 148 ms QRS Dur : 98 ms QT Int : 406 ms P-R-T Axes : 43 -4 30 degrees QTcB Int : 412 ms Normal sinus rhythm with sinus arrhythmia Normal ECG Confirmed by WILLIAM MCGEE MD ([id number]), editor book ZAHRAA BELL ([id number]) on 05/05/2025 9:03:08 AM Referred By: Wild Vo Confirmed By: WILLIAM MCGEE MD 05/05/2503 Date William Mcgee MD CC: Dr. Anabella Pro MD; Dr. Wild Vo MD; Dr. Teofilo Mendoza MD Signed [facility] MR/PAT.[facility] 05-04-2025 MR/PAT.[facility] Medical Records Department [address] [place] [address] PAT - Anesthesia 05/04/25 1358 MR#: [id number] Acct: [id number] Name: LURDES LENZ Rep #: [id number] : 1990 35 From: Ender Choudhary MD PCP: Dr. 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 When Was Last Pacemaker Check QUESTION #4 FULL TEXT: You/Your Family Experience fever (hyperthermia) with Anesthesia Last Oral Intake Last Oral intake: Last Oral Intake NPO since Meds taken in AM with sips of water? Meds patient instructed to take am of surgery PONV PONV - hand method lasting machine operator: PONV - hand method lasting machine operator Female No 05/03/25 13:10 HX of Motion Sickness No 05/03/25 13:10 HX of N/V After Surgery No 05/03/25 13:10 Non-Smoker No 05/03/25 13:10 Duration of Surgery greater No 05/03/25 13:10 than 60 minutes Number of Risk Factors PONV Score Height Weight Height Weight: Anesthesia: Height Weight Height 5 ft 9 in 05/01/25 09:48 Respiratory Assessment Respiratory Assessment - hand method lasting machine operator: Respiratory Tract Infection Hx - hand method lasting machine operator Hx Respiratory Tract Infection No 05/03/25 13:10 STOP Sleep Apnea STOP Sleep Apnea - hand method lasting machine operator: STOP Sleep Apnea - hand method lasting machine operator Hx Hypertension No 05/03/25 13:10 Hx Sleep Apnea Yes 05/03/25 13:10 CPAP Yes: MILD/NO MACHINE FOR 6 05/03/25 13:10 MONTHS BIPAP No 05/03/25 13:10 Do you snore loudly (louder than talking or can be heard Do you often feel tired/ fatigued/ sleepy during daytime? Has anyone observed you stop breathing during sleep? STOP Results Positive 05/03/25 13:10 QUESTION #5 FULL TEXT : Do you snore loudly (louder than talking or can be heard through closed doors)? Tobacco Use History Tobacco Use History - hand method lasting machine operator: Tobacco Use History - hand method lasting machine operator Tobacco Use Smoking Status Current every day smoker 05/03/25 13:10 Hx Tobacco Use Yes 05/03/25 13:10 Years Smoking Packs Smoked per Day Smoking Cessation Date was within the last 15 years Hx Smoking Cessation Date 08/06/22 05/03/25 13:10 Hx Smoking Cessation Counseling Hematologic Medial History Hematologic Hx - hand method lasting machine operator: Hematologic Medical Hx - shipping and receiving specialist Hx of Blood Transfusion No 05/03/25 13:10 Hx of Transfusion in last 3 No 05/03/25 13:10 Months Date of Last Transfusion (if within last 3 months) Ever experience any problems No 05/03/25 13:10 with transfusion(s)? Specify any problems Hx of Preganancy in last 3 N/A 05/03/25 13:10 Months Nurse Filling Out Transfusion DSCHRIBER 05/03/25 13:10 Questions: Date: 05/03/25 05/03/25 13:10 Time: 13:12 05/03/25 13:10 Patient unable to answer at this time (ie. confused, unrespo /Reproduction History /Reproductive History - hand method lasting machine operator: /Reproductive Hx- hand method lasting machine operator Hx Now No 05/03/25 13:10 Gestational Age (in weeks): EDC: Hx Hx Para Hx Section SAB No 05/03/25 13:10 [facility] Medical History (Updated 05/03/25 @ 13:18 by Jane Blancas) Depression Anxiety Marijuana use Arthritis Diabetes Back pain Dietary restriction History of IBS Gastric reflux CPAP (continuous positive airway pressure) dependence Leg cramps Vapes nicotine containing substance Non-smoker Cardiology follow-up encounter Heart murmur Umbilical hernia Home Medications ???Medication ???Instructions ???Recorded ???Last Taken ???Type lancets 30 gauge and blood glucose #420 ea 07/09/23 Unknown Rx strips combo pack hydroxyzine HCl 25 mg tablet 25 mg PO Q8H PRN anxiety #30 tabs 11/10/23 Unknown Rx pen needle, diabetic 32 gauge x #200 ea 01/28/24 Unknown Rx /32 (BD Ultra-Fine Diana Pen Needle) Potassium OTC 1 tab PO DAILY 07/04/24 Unknown Hi story cholecalciferol (vitamin D3) 25 25 mcg PO QDAY 08/02/24 Unknown Hi story mcg (1,000 unit) capsule buspirone 5 mg tablet 5 mg PO BID PRN anxiety #20 tabs 0 04/26/25 Unknown Rx (more content not included)... Normal [facility] Surgery Visit Reporton 05-01 Surgery Visit Report [facility] [address] [place] [address]. [address] [place] [address] OFFICE VISIT Date of Service: 05/01/25 MR#: [id number] Acct: [id number] Name: LURDES LENZ Tamiko Rep #: [id number] : 1990 Provider: Dr. Wild ha MD Age/Sex: 35/M Location: [facility] Status: Signed Intake Vital Signs 04/26/25 10:26 05/01/25 09:48 Height 5 ft 9 in 5 ft 9 in Weight: 287 lb 288 lb 2 oz BMI 42.3 42.5 BP 124/84 H 139/85 H Blood Pressure Location Lt brachial Rt brachial Position Sitting Sitting Respiration 16 18 Pulse 62 75 Pulse Source Monitor Monitor Temp 97.4 F L 97.5 F L Temp Source Temporal Temporal Pulse Oximetry (%) 99 97 Oxygen Delivery Method room air room air Intake Visit Reasons: Hernia Chief Complaint: hernia Allergies Penicillins Allergy (Severe, Verified 05/01/25 09:49) Anaphylaxis dulaglutide (From [facility]) Adverse Reaction (Severe, Verified 05/01/25 09:49) Diarrhea, Stomach Pain, Gas Medications ???Medication ???Instructions ???Recorded ???Confirmed ???Type lancets 30 gauge and blood glucose #420 ea 07/09/23 05/01/25 Rx strips combo pack hydroxyzine HCl 25 mg tablet 25 mg PO Q8H PRN anxiety #30 tabs 11/10/23 05/01/25 Rx pen needle, diabetic 32 gauge x #200 ea 01/28/24 05/01/25 Rx /32 (BD Ultra-Fine Diana Pen Needle) Potassium OTC 1 tab PO DAILY PRN 07/04/24 History cholecalciferol (vitamin D3) 25 25 mcg PO QDAY 08/02/24 05/01/25 H istory mcg (1,000 unit) capsule benzonatate 200 mg capsule 200 mg PO TID PRN cough #20 caps 0 12/14/24 05/01/25 Rx buspirone 5 mg tablet 5 mg PO BID PRN anxiety #20 tabs 0 04/26/25 05/01/25 Rx empagliflozin 25 mg tablet 25 mg PO DAILY #90 tabs 04/26/25 0 05/01/25 Rx (Jardiance) escitalopram oxalate 10 mg tablet 10 mg PO DAILY #90 tabs 04/26/25 05/01/25 Rx (Lexapro) PFSH Medical History (Updated 05/01/25 @ 11:[address] Wild Vo MD) Umbilical hernia Heart murmur Irritable bowel syndrome History of back problems Arthritis Diabetes mellitus, new onset Surgical History Hx of tonsillectomy Family History Father Myocardial infarction, Onset Age: 50 x2 Diabetes Peptic ulcer Mother Anxiety Depression GERD (gastroesophageal reflux disease) Grandfather Cancer NHL Uncle Cancer ? leukemia Grandfather Congestive heart failure Other Arthritis Asthma Hx of ulcer disease Hypertension Severe allergy Social History (Updated 05/01/25 @ 09:50 by Emani Osborn LPN) household members: family current occupational status: employed current occupation: [employer] Smoking Status: Current every day smoker tobacco type: cigarettes and e-cigarettes Electronic Cigarette Use: not used alcohol intake: former substance use type: marijuana what type of physical activity do you participate in: walking do you feel safe at home: Yes HPI HPI HPI: Patient is a 35-year-old male here for umbilical hernia. He says has been there for several years and is growing larger. He denies nausea or vomiting or fevers or chills. Exam Const General: cooperative Orientation: alert and oriented x3 HENMT Head: normal to inspection Neck Neck: normal visual inspection and full ROM Chest Chest palpation inspection: normal inspection of the chest Resp Effort Inspection: normal respiratory effort Auscultation: clear to auscultation bilaterally Cardio Rate: regular rate Rhythm: regular rhythm GI Inspection: non-distended Palpation: soft, hernia umbilical and nontender Skin General: no rashes or lesions noted Neuro General: patient alert and patient oriented x3 Extrem General: full ROM Psych Appearance: grossly normal Mental Status: mental status grossly normal Assessment and Plan Assessment and Plan (1) Umbilical hernia: Status: Acute Qualifiers: Obstruction and gangrene presence: without obstruction or gangrene Qualified Code(s): K42.9 - Umbilical hernia without obstruction or gangrene Plan: Patient has an umbilical hernia that is reducible. I discussed open repair with possible mesh. I discussed repairing it with mesh if it is over 1 cm in diameter. I discussed the repair with him in detail as well as the risks including but not limited to bleeding, infection, injury to underlying organs. Patient understands the risks and is willing to proceed. Wild Vo MD Pager: [facility] [address] [place] [address], [address] [place] [address] Office: Coding Level of Care Code Off vis,new,level 3 Diagnoses Umbilical hernia without (more content not included)... Normal [facility] Absolute lymphocyte countOrd ered By: Anabella Pro on 04-26-2025 Lymphocytes Auto (Unsp spec) [#/Vol] 1.82 10*3/uL 0.83-4.51 [facility] Absolute neutrophil countOrd ered By: Anabella Pro on 04-26-2025 Neutrophils (Bld) [#/Vol] 5.1 10*3/uL 2.0-7.7 [facility] Anion gap in Serum or Plasma Ordered By: Anabella Pro on 04-26-2025 Anion gap [Moles/Vol] 13 mmol/L 5-15 [facility] Automated lymphocyte count a s percentage of total leukocytesOrdered By: Anabella Pro on 04-26-2025 Lymphocytes/100 WBC Auto (Unsp spec) 23.7 % 19- [facility] BUN/creatinine ratioOrdered By: Anabella Pro on 04-26-2025 Urea nitrogen/Creatinine [Mass ratio] 20.9 mg/mg High 10- [facility] Basophil percentageOrdered B y: Anabella Pro on 04-26-2025 Basophils/100 WBC (Bld) 0.5 % 0-[address] [facility] Bilirubin, totalOrdered By: Anabella Pro on 04-26-2025 Bilirubin [Mass/Vol] 0.33 mg/dL 0.00-1.30 [facility] CBC W/Diff, Automatedon Absolute Lymph 1.82 X10 3/uL Normal 0.83-4.51 [facility] Comment on above: Performed By: #### L 506.1001, L100.0100, L500.4050, L500.4100 ####[facility] [address] [place], [address] Absolute Neut 5.1 X10 3/uL Normal 2.0-7.7 [facility] Comment on above: Performed By: #### L 506.1001, L100.0100, L500.4050, L500.4100 ####[facility] [address] [place], [address] Basophils/100 WBC (Bld) 0.5 % Normal 0-[address] [facility] Comment on above: Performed By: #### L 506.1001, L100.0100, L500.4050, L500.4100 ####[facility] [address] [place], [address] Eosinophils/100 WBC (Bld) 2.1 % Normal 0-5 [facility] Comment on above: Performed By: #### L 506.1001, L100.0100, L500.4050, L500.4100 ####[facility] [address] [place], [address] Erythrocyte distribution width (RBC) [Ratio] 12.4 % Normal 11.6-14.6 [facility] Comment on above: Performed By: #### L 506.1001, L100.0100, L500.4050, L500.4100 ####[facility] [address] [place], [address] Hematocrit (Bld) [Volume fraction] 45.3 % Normal 40-54 [facility] Comment on above: Performed By: #### L 506.1001, L100.0100, L500.4050, L500.4100 ####[facility] [address] [place], [address] Hemoglobin (Bld) [Mass/Vol] 15.6 g/dL Normal 13.0-16.5 [facility] Comment on above: Performed By: #### L 506.1001, L100.0100, L500.4050, L500.4100 ####[facility] [address] [place], [address] IG% 1.800 High 0.0-0.9 [facility] Comment on above: Result Comment: IG% - Immature Granulocytes (promyelocytes, myelocytes and metamyelocytes) > 1% indicates that a LEFT SHIFT is Present. Performed By: #### L 506.1001, L100.0100, L500.4050, L500.4100 ####[facility] [address] [place], [address] Lymphocytes/100 WBC (Bld) 23.7 % Normal 19-41 [facility] Comment on above: Performed By: #### L 506.1001, L100.0100, L500.4050, L500.4100 ####[facility] [address] [place], [address] MCH (RBC) [Entitic mass] 31.0 pg Normal 27.0-32.0 [facility] Comment on above: Performed By: #### L 506.1001, L100.0100, L500.4050, L500.4100 ####[facility] [address] [place], [address] MCHC (RBC) [Mass/Vol] 34.4 g/dL Normal 32-36 [facility] Comment on above: Performed By: #### L 506.1001, L100.0100, L500.4050, L500.4100 ####[facility] [address] [place], [address] MCV (RBC) [Entitic vol] 89.9 fL Normal 80-94 [facility] Comment on above: Performed By: #### L 506.1001, L100.0100, L500.4050, L500.4100 ####[facility] [address] [place], [address] Monocytes/100 WBC (Bld) 5.7 % Normal 0-[address] [facility] Comment on above: Performed By: #### L 506.1001, L100.0100, L500.4050, L500.4100 ####[facility] [address] [place], [address] Neutrophils/100 WBC (Bld) 66.2 % Normal 47-70 [facility] Comment on above: Performed By: #### L 506.1001, L100.0100, L500.4050, L500.4100 ####[facility] [address] [place], [address] Nucleated RBC (Bld) [#/Vol] 0 10*3/uL Normal 0-5 [facility] Comment on above: Performed By: #### L 506.1001, L100.0100, L500.4050, L500.4100 ####[facility] [address] [place], [address] Platelet mean volume (Bld) [Entitic vol] 10.6 fL Normal 6.2-12.0 [facility] Comment on above: Performed By: #### L 506.1001, L100.0100, L500.4050, L500.4100 ####[facility] [address] [place], [address] Platelets (Bld) [#/Vol] 235 10*3/uL Normal 150-450 [facility] Comment on above: Performed By: #### L 506.1001, L100.0100, L500.4050, L500.4100 ####[facility] [address] [place], [address] RBC (Bld) [#/Vol] 5.04 10*6/uL Normal 4.6-6.2 [facility] Comment on above: Performed By: #### L 506.1001, L100.0100, L500.4050, L500.4100 ####[facility] [address] [place], [address] RDW SD 40.2 fl Normal 35.1-43.9 [facility] Comment on above: Performed By: #### L 506.1001, L100.0100, L500.4050, L500.4100 ####[facility] [address] [place], [address] WBC (Bld) [#/Vol] 7.7 10*3/uL Normal 4.4-11.0 [facility] Comment on above: Performed By: #### L 506.1001, L100.0100, L500.4050, L500.4100 ####[facility] [address] [place], [address] Calculated very low density lipoprotein (VLDL) cholesterol measurementOrdered By: Anabella [place] on 04-26-2025 Calculated very low density lipoprotein (VLDL) cholesterol measurement 38 mg/dL 5-40 [facility] Carbon dioxide, total [Moles /volume] in Central venous bloodOrdered By: Anabella [place] on 04-26-2025 CO2 [Moles/Vol] 20.0 mmol/L Low 21.0-32.0 [facility] Chloride assayOrdered By: Al ycia [place] on 04-26-2025 Chloride [Moles/Vol] 104 mmol/L 98-108 [facility] Comprehensive Metabolic Prof ilon 04-26-2025 Albumin [Mass/Vol] 4.6 g/dL Normal 3.5-5.0 [facility] Comment on above: Performed By: #### L 506.1001, L100.0100, L500.4050, L500.4100 ####[facility] [address] [place], [address] Albumin/Globulin [Mass ratio] 1.6 {ratio} Normal 0.9-2.4 [facility] Comment on above: Performed By: #### L 506.1001, L100.0100, L500.4050, L500.4100 ####[facility] [address] [place], [address] ALK PHOS 77 U/L Normal 40-129 [facility] Comment on above: Performed By: #### L 506.1001, L100.0100, L500.4050, L500.4100 ####[facility] [address] [place], [address] ALT [Catalytic activity/Vol] 38 U/L Normal <=46 [facility] Comment on above: Performed By: #### L 506.1001, L100.0100, L500.4050, L500.4100 ####[facility] [address] [place], [address] AST [Catalytic activity/Vol] 19 U/L Normal <=37 [facility] Comment on above: Performed By: #### L 506.1001, L100.0100, L500.4050, L500.4100 ####[facility] [address] [place], [address] Bilirubin [Mass/Vol] 0.33 mg/dL Normal 0.00-1.30 [facility] Comment on above: Performed By: #### L 506.1001, L100.0100, L500.4050, L500.4100 ####[facility] [address] [place], [address] BUN/CRE 20.9 RATIO High 10-20 [facility] Comment on above: Performed By: #### L 506.1001, L100.0100, L500.4050, L500.4100 ####[facility] [address] [place], [address] Calcium [Mass/Vol] 9.2 mg/dL Normal 7.6-11.0 [facility] Comment on above: Performed By: #### L 506.1001, L100.0100, L500.4050, L500.4100 ####[facility] [address] [place], [address] Chloride [Moles/Vol] 104 mmol/L Normal 98-108 [facility] Comment on above: Performed By: #### L 506.1001, L100.0100, L500.4050, L500.4100 ####[facility] [address] [place], [address] CO2 [Moles/Vol] 20.0 mmol/L Low 21.0-32.0 [facility] Comment on above: Performed By: #### L 506.1001, L100.0100, L500.4050, L500.4100 ####[facility] [address] [place], [address] Creatinine [Mass/Vol] 0.74 mg/dL Normal 0.70-1.20 [facility] Comment on above: Performed By: #### L 506.1001, L100.0100, L500.4050, L500.4100 ####[facility] [address] [place], [address] GAP 13 Normal 5-15 [facility] Comment on above: Performed By: #### L 506.1001, L100.0100, L500.4050, L500.4100 ####[facility] [address] [place], [address] GFR/1.73 sq M.predicted among non-blacks MDRD (S/P/Bld) [Vol rate/Area] 122 mL/min/{1.73_m2} Normal >60 [facility] Comment on above: Result Comment: mL/m in/1.73m2 CKD-EPI Creatinine Equation (2020) Performed By: #### L 506.1001, L100.0100, L500.4050, L500.4100 ####[facility] [address] [place], [address] Globulin (S) [Mass/Vol] 2.8 g/dL Normal 2.2-4.2 [facility] Comment on above: Performed By: #### L 506.1001, L100.0100, L500.4050, L500.4100 ####[facility] [address] [place], [address] Glucose [Mass/Vol] 101 mg/dL High 70-99 [facility] Comment on above: Performed By: #### L 506.1001, L100.0100, L500.4050, L500.4100 ####[facility] [address] [place], [address] Potassium [Moles/Vol] 4.6 mmol/L Normal 3.3-5.1 [facility] Comment on above: Performed By: #### L 506.1001, L100.0100, L500.4050, L500.4100 ####[facility] [address] [place], [address] Sodium [Moles/Vol] 137 mmol/L Normal 133-145 [facility] Comment on above: Performed By: #### L 506.1001, L100.0100, L500.4050, L500.4100 ####[facility] [address] [place], [address] T PROT 7.4 g/dL Normal 5.9-8.4 [facility] Comment on above: Performed By: #### L 506.1001, L100.0100, L500.4050, L500.4100 ####[facility] [address] [place], [address] Urea nitrogen [Mass/Vol] 15 mg/dL Normal 4-19 [facility] Comment on above: Performed By: #### L 506.1001, L100.0100, L500.4050, L500.4100 ####[facility] [address] [place], [address] Eosinophil percentageOrdered By: Anabella Pro on 04-26-2025 Eosinophils/100 WBC (Bld) 2.1 % 0-5 [facility] Erythrocyte distribution wid th ratioOrdered By: Anabella Pro on 04-26-2025 Erythrocyte distribution width (RBC) [Ratio] 12.4 % 11.6-14.6 [facility] Erythrocyte distribution wid th standard deviationOrdered By: Anabella Pro on 04-26-2025 Erythrocyte distribution width (RBC) [Ratio] 40.2 fl 35.1-43.9 [facility] Glomerular filtration rate ( GFR) estimation/1.73 sq m using serum, plasma, or whole bOrdered By: Anabella Pro on 04-26-2025 GFR/1.73 sq M.predicted among non-blacks MDRD (S/P/Bld) [Vol rate/Area] 122 mL/min/{1.73_m2} >60 [facility] Comment on above: mL/min/1.73m2 CKD-EP I Creatinine Equation (2020) Hematocrit Auto (Bld) [Volum e fraction]Ordered By: Anabella Pro on 04-26-2025 Hematocrit (Bld) [Volume fraction] 45.3 % 40-54 [facility] Hemoglobin measurementOrdere d By: Anabella Pro on 04-26-2025 Hemoglobin (Bld) [Mass/Vol] 15.6 g/dL 13.0-16.5 [facility] Immature granulocytes/100 WB C Auto (Bld)Ordered By: Anabella Pro on 04-26-2025 Immature granulocytes/100 WBC (Bld) 1.800 % High 0.0-0.9 [facility] Comment on above: IG% - Immature Granu locytes (promyelocytes, myelocytes and metamyelocytes) > 1% indicates that a LEFT SHIFT is Present. LDL calc ser/plasOrdered By: Anabella Pro on 04-26-2025 Cholesterol in LDL [Mass/Vol] 118 mg/dL [facility] Comment on above: Jvmmwemxsl=274-207 m g/dL & Higher Aejx=930 mg/dL or greater Laboratory - Chemistry and C hemistry - challengeOrdered By: Anabella Pro on 04-26-2025 AST [Catalytic activity/Vol] 19 U/L <38 [facility] Laboratory - Hematology and Cell countsOrdered By: Anabella Pro on 04-26-2025 HbA1c (Bld) [Mass fraction] 5.9 % 4.2-6.3 [facility] Lipid Profileon 04-26-2025 CHOL:HDL 5.[address] [facility] Comment on above: Performed By: #### L 506.1001, L100.0100, L500.4050, L500.4100 ####[facility] [address] [place], [address] Cholesterol [Mass/Vol] 195 mg/dL Normal <=200 [facility] Comment on above: Result Comment: Chol esterol level, Desirable <200 mg/dL Borderline high cholesterol 200-239 mg/dL High cholesterol >=240 mg/dL Recommendations of the NCEP Adult Treatment Panel for the following risk-cutoff thresholds for the [place] population. Performed By: #### L 506.1001, L100.0100, L500.4050, L500.4100 ####[facility] [address] [place], [address] Cholesterol in HDL [Mass/Vol] 39 mg/dL Low [facility] Comment on above: Result Comment: Kizzy onal Cholesterol Education Program (NCEP) guidelines: <40 mg/dL: Low HDL-cholesterol (major risk factor for CHD) >= 60 mg/dL: High HDL-cholesterol (negative risk factor for CHD) HDL-cholesterol is affected by a number of factors, e.g. smoking, exercise, hormones, sex and age. Performed By: #### L 506.1001, L100.0100, L500.4050, L500.4100 ####[facility] [address] [place], [address] Cholesterol in LDL [Mass/Vol] 118 mg/dL Normal [facility] Comment on above: Result Comment: Bord msezsr=856-528 mg/dL Higher Pnuc=771 mg/dL or greater Performed By: #### L 506.1001, L100.0100, L500.4050, L500.4100 ####[facility] [address] [place], [address] Cholesterol in VLDL [Mass/Vol] 38 mg/dL Normal 5-40 [facility] Comment on above: Performed By: #### L 506.1001, L100.0100, L500.4050, L500.4100 ####[facility] [address] [place], [address] Triglyceride [Mass/Vol] 189 mg/dL Normal [facility] Comment on above: Result Comment: The drugs N-Acetylcysteine and Metamizole may falsely depress this assay. Normal range: <150 mg/dL Borderline High: 150-199 mg/dL High: 200-499 mg/dL Very High: >500 mg/dL Performed By: #### L 506.1001, L100.0100, L500.4050, L500.4100 ####[facility] [address] [place], [address] MCV (mean corpuscular volume ) determinationOrdered By: Anabella Pro on 04-26-2025 MCV (RBC) [Entitic vol] 89.9 fL 80-94 [facility] Mean corpuscular hemoglobin (MCH) determinationOrdered By: Anabella Pro on 04-26-2025 MCH (RBC) [Entitic mass] 31.0 pg 27.0-32.0 [facility] Mean corpuscular hemoglobin concentration (MCHC) determinationOrdered By: Anabella Pro on 04-26-2025 MCHC (RBC) [Mass/Vol] 34.4 g/dL 32-36 [facility] Mean platelet volume determi nationOrdered By: Anabella Pro on 04-26-2025 Platelet mean volume (Bld) [Entitic vol] 10.6 fL 6.2-12.0 [facility] Microalb:Creat Ratio,Random URon 04-26-2025 MALB:CREAT UNABLE TO CALCULATE Normal [facility] Comment on above: Performed By: #### L 502.0250 #### [facility] [address] [place], [address] MICROALBUMIN,UR < 12.0 Normal NO RANGE EST. [facility] Comment on above: Performed By: #### L 502.0250 #### [facility] [address] [place], [place], [id number] Microalbumin/creat ratio urO rdered By: Anabella Pro on 04-26-2025 Urine microalbumin/creatinine ratio measurement UNABLE TO CALCULATE mg/g CRE [facility] Monocyte percentageOrdered B y: Anabella Pro on 04-26-2025 Monocytes/100 WBC (Bld) 5.7 % 0-[address] [facility] Neutrophil percentageOrdered By: Anabella Pro on 04-26-2025 Neutrophils/100 WBC (Bld) 66.2 % 47-70 [facility] Nucleated red blood cell per centageOrdered By: Anabella Pro on 04-26-2025 Nucleated RBC/100 WBC (Bld) [Ratio] 0 % 0-5 [facility] Platelet countOrdered By: Joel Pro on 04-26-2025 Platelets (Bld) [#/Vol] 235 10*3/uL 150-450 [facility] Potassium measurement (mass/ volume)Ordered By: Anabella Pro on 04-26-2025 Potassium (Unsp spec) [Mass/Vol] 4.6 mmol/L 3.3-5.1 [facility] RBC Auto (Bld) [#/Vol]Ordere d By: Anabella Pro on 04-26-2025 RBC (Bld) [#/Vol] 5.04 10*6/uL 4.6-6.2 [facility] Random urine creatinine matt urement (mass/volume)Ordered By: Anabella Pro on 04-26-2025 Creatinine Unsp time (U) [Mass/Vol] 64.70 mg/dL 39.00-259.00 [facility] Screening total cholesterol/ high density lipoprotein (HDL) cholesterol ratioOrdered By: Anabella Pro on 04-26-2025 Cholesterol.total/Choles terol in HDL [Mass ratio] 5.00 {ratio} [facility] Serum creatinine measurement (mass/volume)Ordered By: Anabella Pro on 04-26-2025 Creatinine [Mass/Vol] 0.74 mg/dL 0.70-1.20 [facility] Serum globulin measurementOr dered By: Anabella Pro on 04-26-2025 Globulin (S) [Mass/Vol] 2.8 g/dL 2.2-4.[address] [facility] Serum glucose measurement (m ass/volume)Ordered By: Anabella Pro on 04-26-2025 Glucose [Mass/Vol] 101 mg/dL High 70-99 [facility] Serum or plasma alanine molina otransferase (ALT) measurementOrdered By: Anabella Pro on 04-26-2025 ALT [Catalytic activity/Vol] 38 U/L <47 [facility] Serum or plasma albumin matt urement (mass/volume)Ordered By: Anabella Pro on 04-26-2025 Albumin [Mass/Vol] 4.6 g/dL 3.5-5.0 [facility] Serum or plasma albumin/glob ulin mass ratioOrdered By: Anabella Pro on 04-26-2025 Albumin/Globulin [Mass ratio] 1.6 {ratio} 0.9-2.4 [facility] Serum or plasma alkaline agustin sphatase measurementOrdered By: Anabella Pro on 04-26-2025 ALP [Catalytic activity/Vol] 77 U/L 40-129 [facility] Serum or plasma calcium matt urement (mass/volume)Ordered By: Anabella Pro on 04-26-2025 Calcium [Mass/Vol] 9.2 mg/dL 7.6-11.0 [facility] Serum or plasma cholesterol in HDL measurement (mass/volume)Ordered By: Anabella Pro on 04-26-2025 Cholesterol in HDL [Mass/Vol] 39 mg/dL Low >40 [facility] Comment on above: National Cholesterol Education Program (NCEP) guidelines:<40 mg/dL: Low HDL-cholesterol (major risk factor for CHD)>= 60 mg/dL: High HDL-cholesterol (negative risk factor for CHD)HDL-cholesterol is affected by a number of factors, e.g. smoking, exercise, hormones, sex and age. Serum or plasma cholesterol measurement (mass/volume)Ordered By: Anabella Pro on 04-26-2025 Cholesterol [Mass/Vol] 195 mg/dL <201 [facility] Comment on above: Cholesterol level, D esirable <200 mg/dLBorderline high cholesterol 200-239 mg/dLHigh cholesterol >=240 mg/dLRecommendations of the NCEP Adult Treatment Panel for the following risk-cutoff thresholds for the [place] population. Serum or plasma urea nitroge n measurement (mass/volume)Ordered By: Anabella Pro on 04-26-2025 Urea nitrogen [Mass/Vol] 15 mg/dL 4-19 [facility] Sodium levelOrdered By: Graciela Pro on 04-26-2025 Sodium [Moles/Vol] 137 mmol/L 133-145 [facility] Total proteinOrdered By: Clovis Pro on 04-26-2025 Protein [Mass/Vol] 7.4 g/dL 5.9-8.4 [facility] Triglycerides measurementOrd ered By: Anabella Pro on 04-26-2025 Triglyceride [Mass/Vol] 189 mg/dL <[address] [facility] Comment on above: The drugs N-Acetylcy steine and Metamizole may falsely depress this assay. Normal range: <150 mg/dLBorderline High: 150-199 mg/dLHigh: 200-499 mg/dLVery High: >500 mg/dL Urine albumin measurement [facility] detection limit of 20 mg/L or less (mass/volume)Ordered By: Anabella Pro on 04-26-2025 Albumin DL <= 20 mg/L (U) [Mass/Vol] < 12.0 mg/L NO RANGE EST. [facility] Vitamin D,25 Hydroxyon 04-26 Vitamin D 25-OH 22.8 ng/mL Low 30-100 [facility] Comment on above: Result Comment: Ann Marie min D Status Deficiency: <20 ng/mL (50nmol/L) Insufficiency: 20-30 ng/mL (50-75 nmol/L) Sufficiency: 30-100 ng/mL (75-250 nmol/L) Toxicity: >100 ng/mL (>250 nmol/L) Performed By: #### L 506.1001, L100.0100, L500.4050, L500.4100 ####[facility] [address] [place], [address] White blood cell (WBC) count Ordered By: Anabella Pro on 04-26-2025 WBC (Bld) [#/Vol] 7.7 10*3/uL 4.4-11.0 [facility] Internal Medicine Office Vis iton 04-25-2025 Internal Medicine Office Visit [facility] [address] [place] [address] [place] [address] OFFICE VISIT Date of Service: 04/26/25 MR#: [id number] Acct: [id number] Name: LURDES LENZ Rep #: [id number] : 1990 Provider: Dr. Anabella lyons MD Age/Sex: 35/M Location[place] [facility] Status: Signed Intake Vital Signs 10/27/24 08:49 12/14/24 09:07 04/26/25 10:26 Height 5 ft 9 in 5 ft 9 in 5 ft 9 in Weight: 287 lb BMI 42.3 BP 124/84 H Blood Pressure Location Lt brachial Position Sitting Respiration 16 Pulse 62 Pulse Source Monitor Temp 97.4 F L Temp Source Temporal Pulse Oximetry (%) 99 Oxygen Delivery Method room air Intake Visit Reasons: 6 m fu Chief Complaint: fu Consumer Safety Inspector Required: No Accompanied by: Daughter Is patient in pain?: No Allergies Penicillins Allergy (Severe, Verified 04/26/25 10:19) Anaphylaxis dulaglutide (From [facility]) Adverse Reaction (Severe, Verified 04/26/25 10:11) Diarrhea, Stomach Pain, Gas Medications ???Medication ???Instructions ???Recorded ???Confirmed ???Type lancets 30 gauge and blood glucose #420 ea 07/09/23 04/26/25 Rx strips combo pack hydroxyzine HCl 25 mg tablet 25 mg PO Q8H PRN anxiety #30 tabs 11/10/23 04/26/25 Rx pen needle, diabetic 32 gauge x #200 ea 01/28/24 04/26/25 Rx 5/32 (BD Ultra-Fine Diana Pen Needle) Potassium OTC 1 tab PO DAILY PRN 07/04/24 History cholecalciferol (vitamin D3) 25 25 mcg PO QDAY 08/02/24 04/26/25 H istory mcg (1,000 unit) capsule benzonatate 200 mg capsule 200 mg PO TID PRN cough #20 caps 0 12/14/24 04/26/25 Rx buspirone 5 mg tablet 5 mg PO BID PRN anxiety #20 tabs 0 04/26/25 04/26/25 Rx empagliflozin 25 mg tablet 25 mg PO DAILY #90 tabs 04/26/25 0 04/26/25 Rx (Jardiance) escitalopram oxalate 10 mg tablet 10 mg PO DAILY #90 tabs 04/26/25 04/26/25 Rx (Lexapro) Nurse's Note: Pt states fasting sugars are 90's-120's. Feeling pretty good. Pt needs refills on lexapro and jardiance has 4 more days left. Pt states under belly button, a little less than 3 months ago he noticed a buldge when he coughed or sneeze, and notices it has grown in size. Pt states there is occasional pain, expecially when lifting. Paitent describes pain as uncomfortable. Pain level is goes as high as a 4/10. [facility] Medical History Heart murmur Irritable bowel syndrome History of back problems Arthritis Diabetes mellitus, new onset Surgical History Hx of tonsillectomy Family History Father Myocardial infarction, Onset Age: 50 x2 Diabetes Peptic ulcer Mother Anxiety Depression GERD (gastroesophageal reflux disease) Grandfather Cancer NHL Uncle Cancer ? leukemia Grandfather Congestive heart failure Other Arthritis Asthma Hx of ulcer disease Hypertension Severe allergy Social History household members: family current occupational status: employed current occupation: [employer] Smoking Status: Former smoker quit date: 07/19/22 pack-years: 23 Electronic Cigarette Use: not used alcohol intake: former substance use type: marijuana what type of physical activity do you participate in: walking do you feel safe at home: Yes Questionnaire [facility]-9 BMS Over the last 2 weeks, how often have you been bothered by any of the following problems? 1. Little interest or pleasure in doing things: more than half the days (burnout, work no motivation for hobbies) 2. Feeling down, depressed, or hopeless: several days 3. Trouble falling or staying asleep, or sleeping too much: more than half the days (staying asleep frequent awakenings no reason) 4. Feeling tired or having little energy: not at all 5. Poor appetite or overeating: not at all 6. Feeling bad about yourself - or that you are a failure or have let yourself and your family down: several days 7. Trouble concentrating on things, such as reading the newspaper or watching television: not at all 8. Moving or speaking so slowly that other people could have noticed? - Or the opposite - being so fidgety or restless that you have been moving around a lot more than usual: not at all 9. Thoughts that you would be better off or of hurting yourself in some way: not at all Total score: 6 If you checked off any problems, how difficult have these problems made it for you to do your work, take care of things at home, or get along with other people?: not difficult at all Source: Developed by Drs. Ant Meléndez, Janett Camara, Kg Toribio and colleagues, with an educational alisia from [employer]. [facility]-7 BMS EDEN-7 Feeling nerv (more content not included)... Normal [facility] Urgent Care Visit Reporton 0 12-14-2024 Urgent Care Visit Report [facility] [address], [address] [place] [address] OFFICE VISIT Date of Service: 12/14/24 MR#: [id number] Acct: [id number] Name: LURDES LENZ Tamiko Rep #: [id number] : 1990 Provider: MARÍA Nunez Age/Sex: 34/M Location[place] [facility] Status: Signed Intake Vital Signs 10/27/24 08:49 12/14/24 09:07 Height 5 ft 9 in 5 ft 9 in Weight: 281 lb 2 oz 287 lb 8 oz BMI 41.5 42.4 BP 122/78 H 134/74 H Blood Pressure Location Lt brachial Lt brachial Position Sitting Sitting Respiration 16 17 Pulse 98 64 Pulse Source Monitor NIBP Temp 97.3 F L 98.7 F Temp Source Temporal Oral Pulse Oximetry (%) 96 97 Oxygen Delivery Method room air room air Intake Visit Reasons: ST/COUGH/CHEST CONGESTION Chief Complaint: ST, cough, congestion, sweats/chills Consumer Safety Inspector Required: No Is patient in pain?: No Allergies amoxicillin Allergy (Verified 12/14/24 09:07) Swelling dulaglutide (From [facility]) Adverse Reaction (Severe, Verified 12/14/24 09:07) Diarrhea, Stomach Pain, Gas Have you fallen in the past year?: No Nurse's Note: ST, cough, congestion, sweats/chills x 24 hours. [facility] Medical History (Updated 10/27/24 @ 12:[address] Anabella Pro MD) Heart murmur Irritable bowel syndrome History of back problems Arthritis Diabetes mellitus, new onset Surgical History Hx of tonsillectomy Family History Father Myocardial infarction, Onset Age: 50 x2 Diabetes Peptic ulcer Mother Anxiety Depression GERD (gastroesophageal reflux disease) Grandfather Cancer NHL Uncle Cancer ? leukemia Grandfather Congestive heart failure Other Arthritis Asthma Hx of ulcer disease Hypertension Severe allergy Social History (Updated 10/27/24 @ 09:[address] Anabella Pro MD) household members: family current occupational status: employed current occupation: [employer] Smoking Status: Former smoker quit date: 07/19/22 pack-years: 23 Electronic Cigarette Use: not used alcohol intake: former substance use type: marijuana what type of physical activity do you participate in: walking do you feel safe at home: Yes HPI HPI Chief Complaint: ST, cough, congestion, sweats/chills Details: LURDES LENZ is a 34 M who presents to the office today for initial evaluation in the [facility] for approximately 24-hour history of persistent sore throat, cough, congestion, sweats/chills. P atient notes no complaints of chest pain or shortness of breath or dyspnea on exertion. Several close contacts recently dx???d w/ similar URI complaints. No [id number] taken to assist. Vape smoker. No other associated symptoms and no other alleviating/aggravatin g factors. ROS Const Constitutional: No other (As above) Exam Const General: cooperative, healthy appearing and no acute distress Orientation: alert, awake and oriented x3 HENMT Head: normal to inspection Ears: hearing grossly normal bilaterally, external ears normal, TM's normal bilaterally and EAC's normal Nose: external nose normal, nares normal, septum normal and clear nasal discharge Face and sinus: normal facial exam, sinuses nontender and face symmetric Mouth: oral mucosae normal, lip normal, tongue normal and oropharynx normal Throat: posterior oropharynx normal, tonsils normal, uvula midline and no postnasal drainage Eyes General: appearance normal, both eyes and all related structures Neck Neck: normal visual inspection, full ROM, no lymphadenopathy, no meningeal signs and supple Neck mass: No Thyroid: thyroid normal Lymphatic: no lymphadenopathy noted Chest Chest palpation inspection: normal inspection of the chest Resp Effort Inspection: normal respiratory effort, able to speak in complete sentences and cough Quality of cough: wet (nonproductive in office today) Auscultation: Bilateral: Clear to Auscultation Cardio Palpation: normal PMI Rate: regular Rhythm: regular rhythm Heart Sounds: S1 normal, S2 normal, no gallops, no murmurs and no rubs Pulses: radial pulses present Skin General: no rashes or lesions noted Neuro General: patient alert, patient awake and patient oriented x3 Cognition: normal cognition Speech: speech normal Psych Appearance: grossly normal Mental Status: mental status grossly normal Mood: congruent mood Affect: normal affect Speech and Movement: speech and movement normal Attitude: cooperative Diagnoses Contact with or exposure to other viral diseases Z20.828 URI (upper respiratory infection) J06.9 Assessment and Plan Assessment and Plan (1) Contact with or exposure to other viral diseases: Status: Acute (2) URI (upper respiratory infection): Status: Acute (more content not included)... Normal [facility] Internal Medicine Office Vis paula 10-26-2024 Internal Medicine Office Visit [facility] [address] [place] [address] [address] [place] [address] OFFICE VISIT Date of Service: 10/27/24 MR#: [id number] Acct: [id number] Name: LURDES LENZ Rep #: [id number] : 1990 Provider: Dr. Anabella lyons MD Age/Sex: 34/M Location: [facility] Status: Signed Intake Vital Signs 04/26/24 09:14 07/04/24 09:45 08/02/24 11:06 10/27/24 08:49 Height 5 ft 9 in 5 ft 9 in 5 ft 9 in 5 ft 9 in Weight: 281 lb 2 oz BMI 41.5 BP 122/78 H Blood Pressure Location Lt brachial Position Sitting Respiration 16 Pulse 98 Pulse Source Monitor Temp 97.3 F L Temp Source Temporal Pulse Oximetry (%) 96 Oxygen Delivery Method room air Intake Visit Reasons: 6 M FU Chief Complaint: follow up Consumer Safety Inspector Required: No Accompanied by: Self Is patient in pain?: No Allergies amoxicillin Allergy (Verified 10/27/24 08:43) Swelling dulaglutide (From [facility]) Adverse Reaction (Severe, Verified 10/27/24 08:43) Diarrhea, Stomach Pain, Gas Medications ???Medication ???Instructions ???Recorded ???Confirmed ???Type lancets 30 gauge and blood glucose #420 ea 07/09/23 10/27/24 Rx strips combo pack hydroxyzine HCl 25 mg tablet 25 mg PO Q8H PRN anxiety #30 tabs 11/10/23 10/27/24 Rx pen needle, diabetic 32 gauge x #200 ea 01/28/24 10/27/24 Rx 5/32 (BD Ultra-Fine Diana Pen Needle) Potassium OTC 1 tab PO DAILY PRN 07/04/24 10/27/24 History cholecalciferol (vitamin D3) 25 25 mcg PO QDAY 08/02/24 10/27/24 History mcg (1,000 unit) capsule fexofenadine 180 mg tablet 180 mg PO Q24H #10 tabs 08/02/24 10/27/24 Rx (Landy Allergy) fluticasone propionate 50 1 spray intranasal QDAY #16 grams 08/02/24 10/27/24 Rx mcg/actuation nasal spray,suspension (Flonase Allergy Relief) escitalopram oxalate 10 mg tablet 10 mg PO DAILY #90 tabs 10/19/24 10/27/24 Rx (Lexapro) clotrimazole-betametha sone 1 1 applic topical BID 2 weeks #30 mL 10/27/24 10/27/24 Rx %-0.05 % lotion empagliflozin 25 mg tablet 25 mg PO DAILY #90 tabs 10/27/24 10/27/24 Rx (Jardiance) Have you fallen in the past year?: No PFSH Medical History (Updated 10/27/24 @ 12:[address] Anabella Pro MD) Heart murmur Irritable bowel syndrome History of back problems Arthritis Diabetes mellitus, new onset Surgical History Hx of tonsillectomy Family History Father Myocardial infarction, Onset Age: 50 x2 Diabetes Peptic ulcer Mother Anxiety Depression GERD (gastroesophageal reflux disease) Grandfather Cancer NHL Uncle Cancer ? leukemia Grandfather Congestive heart failure Other Arthritis Asthma Hx of ulcer disease Hypertension Severe allergy Social History (Updated 10/27/24 @ 09:[address] Anabella Pro MD) household members: family current occupational status: employed current occupation: [employer] Smoking Status: Former smoker quit date: 07/19/22 pack-years: 23 Electronic Cigarette Use: not used alcohol intake: former substance use type: marijuana what type of physical activity do you participate in: walking do you feel safe at home: Yes HPI HPI Chief Complaint: follow up Details: LURDES LENZ, is a 34 M who presents to the office today for a follow up. He is up to date on his routine blood work. He is not due for any screening. He would like a flu shot. He doesn't smoke. He does need refills. He reports he hasn't been doing as well in terms of eating healthy. He isn't as active due to the winter months. He does walk a lot at work, however. He hasn't been checking his sugars at home regularly. When he does check it, it is between 98-125. He states even at 98, he will feel a little shaky. He has been taking his medication as prescribed without problems. He does try to monitor his carbohydrate and sugar intake, but hasn't done as well over the holidays. He thinks he is up to date on his eye exam and doesn't follow with podiatry. He is no longer following with endocrinology. The patient reports that his depression and anxiety have been hit or miss. He does still feel the medication is helping. He recognizes there are some stressors that the medication can't help. He hasn't really used the atarax, but does have some at home. He denies any thoughts of suicide. Since the patient was last seen, he did get his CPAP. He reports that he started using it, and used it for about a month. He states, however, he has trouble with sleeping with it. He uses a nasal pillow and states when he did wear it, he would often wake up with it off. He feels that he may be returning the machine. He hasn't had any further episodes of chest pain. He feels it was stress related. He reports his URI has resolved stating the flona (more content not included)... Normal [facility] M100.678on 08-02-2024 M100.678 Pending SARS-CoV-2 (COVID 19) Negative INFLUENZA A Negative INFLUENZA B Negative RSV PCR Negative Normal [facility] Comment on above: Performed By: #### M 100.678 #### [facility] [address] [place], [address] Internal Medicine Office Vis itoguanaco 08-01-2024 Internal Medicine Office Visit [facility] [place] [address] [place] [address] OFFICE VISIT Date of Service: 08/02/24 MR#: [id number] Acct: [id number] Name: LURDES LENZ Rep #: [id number] : 1990 Provider: Dr. Anabella lyons MD Age/Sex: 34/M Location: [facility] Status: Signed Intake Vital Signs 07/04/24 09:45 08/02/24 11:06 Height 5 ft 9 in 5 ft 9 in Weight: 275 lb BMI 40.6 BP 124/84 H Blood Pressure Location Lt brachial Position Sitting Respiration 16 Pulse 80 Pulse Source Monitor Temp 97.8 F Temp Source Temporal Pulse Oximetry (%) 98 Oxygen Delivery Method room air Intake Visit Reasons: possible bronchitis Chief Complaint: cough Consumer Safety Inspector Required: No Accompanied by: Self Is patient in pain?: No Allergies amoxicillin Allergy (Verified 08/02/24 11:02) Swelling dulaglutide (From [facility]) Adverse Reaction (Severe, Verified 08/02/24 11:02) Diarrhea, Stomach Pain, Gas Medications ???Medication ???Instructions ???Recorded ???Confirmed ???Type lancets 30 gauge and blood glucose #420 ea 07/09/23 08/02/24 Rx strips combo pack hydroxyzine HCl 25 mg tablet 25 mg PO Q8H PRN anxiety #30 tabs 11/10/23 08/02/24 Rx pen needle, diabetic 32 gauge x #200 ea 01/28/24 08/02/24 Rx 5/32 (BD Ultra-Fine Diana Pen Needle) empagliflozin 25 mg tablet 25 mg PO DAILY #30 tabs 03/29/24 08/02/24 Rx (Jardiance) escitalopram oxalate 10 mg tablet 10 mg PO DAILY #90 tabs 04/26/24 08/02/24 Rx (Lexapro) Potassium OTC 1 tab PO DAILY PRN 07/04/24 08/02/24 History cholecalciferol (vitamin D3) 25 25 mcg PO QDAY 08/02/24 08/02/24 History mcg (1,000 unit) capsule fexofenadine 180 mg tablet 180 mg PO Q24H #10 tabs 08/02/24 08/02/24 Rx (Landy Allergy) fluticasone propionate 50 1 spray intranasal QDAY #16 grams 08/02/24 08/02/24 Rx mcg/actuation nasal spray,suspension (Flonase Allergy Relief) [facility] Medical History Heart murmur Irritable bowel syndrome History of back problems Arthritis Diabetes mellitus, new onset Surgical History Hx of tonsillectomy Family History Father Myocardial infarction, Onset Age: 50 x2 Diabetes Peptic ulcer Mother Anxiety Depression GERD (gastroesophageal reflux disease) Grandfather Cancer NHL Uncle Cancer ? leukemia Grandfather Congestive heart failure Other Arthritis Asthma Hx of ulcer disease Hypertension Severe allergy Social History household members: family current occupational status: employed current occupation: [employer] Smoking Status: Former smoker quit date: 07/19/22 pack-years: 23 Electronic Cigarette Use: not used alcohol intake: former substance use type: marijuana what type of physical activity do you participate in: walking do you feel safe at home: Yes HPI HPI Chief Complaint: cough Details: LURDES LENZ, is a 34 M who presents to the office today for an acute visit. He is having a sore throat, chest pain, and cough. He reports his symptoms started 3-4 days ago, but seem to be worse in the last couple of days. He reports somebody at work had pneumonia. He reports there were some people in the office that also had COVID, but states that was a few weeks ago. He reports he has been taking vitamin c. He hasn't tried taking or doing anything else for his symptoms. He reports he is bringing up an occasional sputum. He states it is thick, dark green in appearance. He reports when he wakes up, his nose is very congested and it is hard to breathe through it. He reports his throat is sore on both sides and hurts a little to swallow. He reports he has been having feelings of being hot and cold, but hasn't checked his temperature. Symptoms include: Fever (=100.4F) or Chills: No Cough: Yes Shortness of breath or difficulty breathing: Yes with exertion Fatigue: Yes Muscle aches: No Headache: Yes, resolved New loss of smell or taste: No Sore throat: Yes Nasal congestion: Yes Rhinorrhea: Yes Nausea: No? Vomiting: No Diarrhea: No OTC meds/remedies that the patient has tried: Vitamin c High risk category assessment: DM Exposures: Sick contacts: Yes Family or close contacts with confirmed/suspected COVID in the last 14 days: No ROS Const Constitutional: Positive for body ache and fatigue; No chills, excessive sweating, fever(s), frequent falls, headache(s) (resolved), snoring, weakness or change in appetite Eyes Eyes: No blurry vision, change in vision, eye pain or Light sensitivity ENT ENT: Positive for nasal congestion, sinus pressure and sore throat; No abnormal hearing, ear or mastoid p (more content not included)... Normal [facility] Endocrinology Visit Reporton 07-04-2024 Endocrinology Visit Report [facility] [address] [place] [address] OFFICE VISIT Date of Service: 07/04/24 MR#: [id number] Acct: [id number] Name: LURDES LENZ Rep #: [id number] : 1990 Provider: ONEAL garcia Age/Sex: 34/M [place] [facility] [place]: Signed Intake Vital Signs 04/18/24 10:42 04/26/24 09:14 07/04/24 09:45 Height 5 ft 9 in 5 ft 9 in 5 ft 9 in Weight: 283 lb 287 lb 277 lb BMI 41.8 42.3 40.8 BP 117/81 H 122/86 H 122/81 H Blood Pressure Location Lt brachial Lt brachial Lt brachial Position Sitting Sitting Sitting Respiration 16 Pulse 73 66 75 Pulse Source Monitor Monitor Monitor Temp 98.3 F Temp Source Temporal Pulse Oximetry (%) 96 96 96 Oxygen Delivery Method room air room air room air Intake Visit Reasons: 2 M FU Chief Complaint: f/u diabetes Consumer Safety Inspector Required: No Accompanied by: Self Is patient in pain?: No Allergies amoxicillin Allergy (Verified 07/04/24 09:47) Swelling dulaglutide (From [facility]) Adverse Reaction (Severe, Verified 07/04/24 09:47) Diarrhea, Stomach Pain, Gas Medications ???Medication ???Instructions ???Recorded ???Confirmed ???Type lancets 30 gauge and blood glucose #420 ea 07/09/23 07/04/24 Rx strips combo pack hydroxyzine HCl 25 mg tablet 25 mg PO Q8H PRN anxiety #30 tabs 11/10/23 07/04/24 Rx pen needle, diabetic 32 gauge x #200 ea 01/28/24 07/04/24 Rx 5/32 (BD Ultra-Fine Diana Pen Needle) empagliflozin 25 mg tablet 25 mg PO DAILY #30 tabs 03/29/24 07/04/24 Rx (Jardiance) escitalopram oxalate 10 mg tablet 10 mg PO DAILY #90 tabs 04/26/24 07/04/24 Rx (Lexapro) Potassium OTC 1 tab PO DAILY PRN 07/04/24 History PFSH Medical History Heart murmur Irritable bowel syndrome History of back problems Arthritis Diabetes mellitus, new onset Surgical History Hx of tonsillectomy Family History Father Myocardial infarction, Onset Age: 50 x2 Diabetes Peptic ulcer Mother Anxiety Depression GERD (gastroesophageal reflux disease) Grandfather Cancer NHL Uncle Cancer ? leukemia Grandfather Congestive heart failure Other Arthritis Asthma Hx of ulcer disease Hypertension Severe allergy Social History household members: family current occupational status: employed current occupation: [employer] Smoking Status: Former smoker quit date: 07/19/22 pack-years: 23 Electronic Cigarette Use: not used alcohol intake: former substance use type: marijuana what type of physical activity do you participate in: walking do you feel safe at home: Yes HPI HPI Chief Complaint: f/u diabetes Details: LURDES LENZ, is a 34 M who presents to the office today for evaluation and management of diabetes. A1C today is 5.4%, consistent with 04/18/24. He has lost an additional 6 lbs. Currently taking Jardiance 25 mg once daily. He is off all insulin. Reports he has not been routinely checking his blood sugars. He continues to make dietary and lifestyle modifications- he is pleased with his progress. Hx of elevated TSH with negative antibodies- likely non thyroidal illness. He is due for repeat labs. Hx of significantly elevated cholesterol, diagnosed during admission for DKA. He is not currently on any statin. Again, due for repeat labs. Denies any acute concerns. ROS Const Constitutional: Positive for weight change (intentional loss) Endo Endocrine: Positive for weight change (intentional loss) Exam Const General: cooperative, healthy appearing, comfortable and no acute distress Nutritional Appearance: obese Orientation: alert, awake and oriented x3 HENMT Head: normal to inspection Ears: hearing grossly normal bilaterally Nose: external nose normal Face and sinus: normal facial exam Eyes General: appearance normal, both eyes and all related structures Alignment and Position: alignment normal Sclera: sclerae normal Neck Neck: normal visual inspection Carotids: normal carotid upstroke Chest Chest palpation inspection: normal inspection of the chest Resp Effort Inspection: normal respiratory effort, able to speak in complete sentences, symmetric chest movement, normal respiratory pattern, no audible wheezes and no cough Auscultation: Bilateral: Clear to Auscultation Cardio Rate: regular rate Rhythm: regular rhythm Heart Sounds: S1 normal and S2 normal Bruits: no carotid bruits GI Inspection: normal to inspection and obesity Musc Cervical Spine: normal cervical lordosis Thoracic/Lumbar Spine: thoracic and lumbar spine normal to in (more content not included)... Normal [facility] Lipid Profileon 07-04-2024 Cholesterol [Mass/Vol] 183 mg/dL Normal 200 [facility] Comment on above: Result Comment: <200 mg/dL Desirable 200-240 mg/dL Borderline >240 mg/dL High Risk Performed By: #### L 506.1000, L500.4100, L501.9520 ####[facility] [id number] [place], [address] Cholesterol in HDL [Mass/Vol] 34 mg/dL Low [facility] Comment on above: Result Comment: The drugs N-Acetylcysteine and Metamizole may falsely depress this assay. Reference Range HDL <40 mg/dL Low HDL Cholesterol HDL >or= 60 mg/dL High HDL Cholesterol Performed By: #### L 506.1000, L500.4100, L501.9520 ####[facility] [id number] [place], [address] Cholesterol in LDL [Mass/Vol] 121 mg/dL Normal 0-130 [facility] Comment on above: Performed By: #### L 506.1000, L500.4100, L501.9520 ####[facility] [id number] [place], [address] Cholesterol in VLDL [Mass/Vol] 28 mg/dL Normal 5-40 [facility] Comment on above: Performed By: #### L 506.1000, L500.4100, L501.9520 ####[facility] [id number] [place], [place], [address] Triglyceride [Mass/Vol] 141 mg/dL Normal [facility] Comment on above: Result Comment: The drugs N-Acetylcysteine and Metamizole may falsely depress this assay. Serum Triglycerides Reference Interval Normal <150 mg/dL Borderline high 150 - 199 mg/dL High 200 - 499 mg/dL Very High > or = 500 mg/dL Performed By: #### L 506.1000, L500.4100, L501.9520 ####[facility] [id number] [place], [place], [id number] Thyroid Stim Hormone (TSH)on 07-04-2024 TSH 2.410 uIU/mL Normal 0.358-3.740 [facility] Comment on above: Performed By: #### L 506.1000, L500.4100, L501.9520 ####[facility] [id number] [place], [place], [address] Vitamin D,25 Hydroxyon 07-04 Vitamin D 25-OH 23.5 ng/mL Normal [facility] Comment on above: Result Comment: Ann Marie min D 25(OH) Status Range Deficiency <20 ng/mL (50nmol/L) Insufficiency 20 - 30 ng/mL (50 - 75 nmol/L) Sufficiency 30 - 100 ng/mL (75 - 250 nmol/L) Toxicity >100 ng/mL (>250 nmol/L) Performed By: #### L 506.1000, L500.4100, L501.9520 ####[facility] [id number] [place], [place], [address] Laboratory - Hematology and Cell countson 01-18-2024 HbA1c (Bld) [Mass fraction] 5.5 % 4.2-6.3 [facility] [facility] CNOV Office Visit (UCWSTR ) LURDES LENZ ([id number]) 1990 M Date Time Provider Department 11/18/23 9:45 AM EMMETT JARQUIN [facility] During your visit today, we recorded the following information about you: Temperature Pulse Respiration Blood pressure 97 degrees 72/minute 16/minute 126/74 Weight 123.4 kg Emmett Jarquin MD 11/18/2023 9:56 AM Signed Patient [...] treatment with rest, cold medicine, and analgesia. Emmett Jarquin MD Allergies As of Date: 11/18/2023 Noted Allergy Reaction AMOXICILLIN 11/18/2023 7 - Swelling PENICILLINS 11/18/2023 7 - Swelling Comments: throat Date Reviewed: Never Reviewed Reason for Visit: Sore Throat [200] Cmt: x this am Primary Visit Diagnosis:Sore throat [J02.9] Other Visit Diagnosis:Exposure to strep throat [Z20.818] Order(s):STREP A MOLECULAR (POC) [[id number]] Order #: [id number]. #:[id number] Prescriptions as of 11/18/2023 - JARDIANCE 26 [...] 11/18/2023 (None) Letter Text Encounter Status:Closed by EMMETT JARQUIN on 11/18/23 [facility] No Panel InformationOrdered By: Evelin Yanes on 10-28-2023 Thyroid Stimulating Hormone (TSH) 5.14 uIU/mL 0.358-3.74 [facility] Serum or plasma thyroperoxid ase antibody assay (units/volume)Ordered By: Evelin Yanes on 10-28-2023 TPO Ab Qn [IU]/mL 0-34 [facility] Comment on above: Performed at: [place] [address] [id number] Director: Zak Victoria PhD, Phone: [phone] Laboratory - Hematology and Cell countson 10-07-2023 HbA1c (Bld) [Mass fraction] 6.0 % 4.2-6.3 [facility] Basophil percentageOrdered B y: Anabella Morteza on 07-23-2023 Bilirubin [Mass/Vol] 0.40 mg/dL 0.20-1.00 [facility] Comment on above: For patients on eltr ombopag therapy, use of Dimension Elfrida TBIL is not recommended. Chloride [Moles/Vol] 106 mmol/L 98-107 [facility] Glucose [Mass/Vol] 161 mg/dL 74-106 [facility] Comment on above: Fasting Glucose resu lt greater than or equal to 126 mg/dL suggests DIABETES MELLITUS per A.D.A. criteria. Potassium [Moles/Vol] 4.2 mmol/L 3.5-5.1 [facility] Protein [Mass/Vol] 6.7 g/dL 6.4-8.2 [facility] Sodium [Moles/Vol] 138 mmol/L 136-145 [facility] Laboratory - Chemistry and C hemistry - challengeOrdered By: Anabella Pro on 07-23-2023 ALP [Catalytic activity/Vol] 92 U/L 45-117 [facility] ALT [Catalytic activity/Vol] 87 U/L 16-61 [facility] CO2 [Moles/Vol] 25.0 mmol/L 21.0-32.0 [facility] Globulin (S) [Mass/Vol] 3.0 g/dL 2.2-4.2 [facility] Urea nitrogen/Creatinine [Mass ratio] 17.0 mg/mg 10-20 [facility] No Panel InformationOrdered By: Anabella Pro on 07-23-2023 Estimated GFR (MDRD) Amer 139 mL/min >60 [facility] Comment on above: GFR Calc Estimated GFR (MDRD) Non-Af Amer 115 mL/min >60 [facility] Comment on above: Non- GFR Calc Thyroid Stimulating Hormone (TSH) 9.25 uIU/mL 0.358-3.74 [facility] Urine Microalbumin/Creatinine Ratio TNP [facility] Comment on above: Test not performed Serum or plasma albumin matt urement (mass/volume)Ordered By: Anabella Pro on 07-23-2023 Albumin [Mass/Vol] 3.7 g/dL 3.2-5.0 [facility] Serum or plasma albumin/glob ulin mass ratioOrdered By: Anabella Pro on 07-23-2023 Albumin/Globulin [Mass ratio] 1.2 {ratio} 0.9-2.4 [facility] Serum or plasma calcium matt urement (mass/volume)Ordered By: Anabella Pro on 07-23-2023 Calcium [Mass/Vol] 9.1 mg/dL 8.5-10.1 [facility] Serum or plasma creatinine m easurement (mass/volume)Ordered By: Anabella Pro on 07-23-2023 Creatinine [Mass/Vol] 0.82 mg/dL 0.70-1.30 [facility] Comment on above: The validity of the calculated GFR & GFRAA in patients over 70 years has not been determined. Clinical correlation is essential. Serum or plasma urea nitroge n measurement (mass/volume)Ordered By: Anabella Pro on 07-23-2023 Urea nitrogen [Mass/Vol] 14 mg/dL 7-18 [facility] Thin prep Papanicolaou smear with manual screeningOrdered By: Anabella Pro on 07-23-2023 Thin prep Papanicolaou smear with manual screening 31 U/L 15-37 [facility] Thin prep Papanicolaou smear with manual screening 7 5-15 [facility] Thin prep Papanicolaou smear with manual screening < 5.0 mg/L NO RANGE EST. [facility] Urine creatinine measurement (mass/volume)Ordered By: Anabella Pro on 07-23-2023 Creatinine (U) [Mass/Vol] 101.00 mg/dL NO RANGE EST. [facility] Absolute lymphocyte countOrd ered By: Tonja Lemus on 07-10-2023 Lymphocytes Auto (Unsp spec) [#/Vol] 2.79 10*3/uL 0.83-4.51 [facility] Basophil percentageOrdered B y: Tonja Lemus on 07-10-2023 Basophils/100 WBC (Bld) 1.4 % 0-[address] [facility] Chloride [Moles/Vol] 106 mmol/L 98-107 [facility] Eosinophils/100 WBC (Bld) 3.3 % 0-5 [facility] Glucose [Mass/Vol] 248 mg/dL 74-106 [facility] Comment on above: Glucose result great er than or equal to 200 mg/dLsuggests DIABETES MELLITUS per A.D.A. criteria. Neutrophils (Bld) [#/Vol] 3.4 10*3/uL 2.0-7.7 [facility] Neutrophils/100 WBC (Bld) 47.0 % 47-70 [facility] Potassium [Moles/Vol] 3.3 mmol/L 3.5-5.1 [facility] Sodium [Moles/Vol] 136 mmol/L 136-145 [facility] WBC (Bld) [#/Vol] 7.2 10*3/uL 4.4-11.0 [facility] Blood erythrocytes count (nu mber/volume)Ordered By: Tonja Lemus on 07-10-2023 RBC (Bld) [#/Vol] 4.72 10*6/uL 4.6-6.2 [facility] Blood hemoglobin measurement (mass/volume)Ordered By: Tonja Lemus on 07-10-2023 Hemoglobin (Bld) [Mass/Vol] 14.0 g/dL 13.0-16.5 [facility] Blood lymphocytes/100 leukoc ytesOrdered By: Tonja Lemus on 07-10-2023 Lymphocytes/100 WBC (Bld) 38.8 % 19-41 [facility] Blood monocytes/100 leukocyt esOrdered By: Tonja Lemus on 07-10-2023 Monocytes/100 WBC (Bld) 5.7 % 0-[address] [facility] Blood platelet mean volumeOr dered By: Tonja Lemus on 07-10-2023 Platelet mean volume (Bld) [Entitic vol] 10.9 fL 6.2-12.0 [facility] Determination of erythrocyte mean corpuscular volume (MCV)Ordered By: Tonja Lemus on 07-10-2023 MCV (RBC) [Entitic vol] 87.3 fL 80-[address] [facility] Glucose Glucometer (BldC) [M ass/Vol]Ordered By: Tonja Lemus on 07-10-2023 Glucose [Mass/Vol] 351 mg/dL 74-106 [facility] Comment on above: MANAGEMENT OF PATIEN T CARE PER NURSING PROTOCOL Hematocrit Auto (Bld) [Volum e fraction]Ordered By: Tonja Lemus on 07-10-2023 Hematocrit (Bld) [Volume fraction] 41.2 % 40-54 [facility] Laboratory - Chemistry and C hemistry - challengeOrdered By: Tonja Lemus on 07-10-2023 CO2 [Moles/Vol] 22.0 mmol/L 21.0-32.0 [facility] Urea nitrogen/Creatinine [Mass ratio] 17.1 mg/mg 10-20 [facility] Laboratory - Hematology and Cell countsOrdered By: Tonja Lemus on 07-10-2023 Erythrocyte distribution width (RBC) [Entitic vol] 38.6 fL 35.1-43.9 [facility] Erythrocyte distribution width (RBC) [Ratio] 12.0 % 11.6-14.6 [facility] Immature granulocytes/100 WBC (Bld) 3.800 % 0.0-0.9 [facility] Comment on above: IG% - Immature Granu locytes (promyelocytes, myelocytes and metamyelocytes) > 1% indicates that a LEFT SHIFT is Present. MCH (RBC) [Entitic mass] 29.7 pg 27.0-32.0 [facility] Nucleated RBC/100 WBC (Bld) [Ratio] 0 % 0-5 [facility] MCHC Auto (RBC) [Mass/Vol]Or dered By: Tonja Lemus on 07-10-2023 MCHC (RBC) [Mass/Vol] 34.0 g/dL 32-36 [facility] No Panel InformationOrdered By: Tonja Lemus on 07-10-2023 Estimated Creatinine Clearance Calc 139.54 ml/min [facility] Estimated GFR (MDRD) Amer 152 mL/min >60 [facility] Comment on above: GFR Calc Estimated GFR (MDRD) Non-Af Amer 126 mL/min >60 [facility] Comment on above: Non- GFR Calc Platelets bldOrdered By: Debbie Lemus on 07-10-2023 Platelets (Bld) [#/Vol] 236 10*3/uL 150-450 [facility] Serum or plasma calcium matt urement (mass/volume)Ordered By: Tonja Lemus on 07-10-2023 Calcium [Mass/Vol] 8.5 mg/dL 8.5-10.1 [facility] Serum or plasma creatinine m easurement (mass/volume)Ordered By: Tonja Lemus on 07-10-2023 Creatinine [Mass/Vol] 0.76 mg/dL 0.70-1.30 [facility] Comment on above: The validity of the calculated GFR & GFRAA in patients over 70 years has not been determined. Clinical correlation is essential. Serum or plasma urea nitroge n measurement (mass/volume)Ordered By: Tonja Lemus on 07-10-2023 Urea nitrogen [Mass/Vol] 13 mg/dL 7-18 [facility] Thin prep Papanicolaou smear with manual screeningOrdered By: Tonja Lemus on 07-10-2023 Thin prep Papanicolaou smear with manual screening 8 5-15 [facility] Basophil percentageOrdered B y: Abraham Montano on 07-08-2023 Cholesterol [Mass/Vol] 199 mg/dL <200 [facility] Comment on above: <200 mg/dL Desirable 200-240 mg/dL Borderline >240 mg/dL High Risk Triglyceride [Mass/Vol] 642 mg/dL <[address] [facility] Comment on above: TRIGLYCERIDE IS GREA TER THAN 400 mg/dL. LDL RESULT IS INVALID AND WILL NOT BE REPORTED.Serum Triglycerides Reference Interval Normal <150 mg/dL Borderline high 150 - 199 mg/dL High 200 - 499 mg/dL Very High > or = 500 mg/dL Laboratory - Chemistry and C hemistry - challengeOrdered By: Tonja Lemus on 07-08-2023 Free T4 [Mass/Vol] 0.87 ng/dL 0.76-1.46 [facility] No Panel InformationOrdered By: Tonja Lemus on 07-08-2023 Free Triiodothyronine (T3) pg/dL 1.5 pg/mL 2.18-3.98 [facility] No Panel InformationOrdered By: Abraham Montano on 07-08-2023 Thyroid Stimulating Hormone (TSH) 4.64 uIU/mL 0.358-3.74 [facility] Serum or plasma cholesterol in HDL measurement (mass/volume)Ordered By: Abraham Montano on 07-08-2023 Cholesterol in HDL [Mass/Vol] 20 mg/dL >40 [facility] Comment on above: The drugs N-Acetylcy steine and Metamizole may falsely depress this assay. Reference Range HDL <40 mg/dL Low HDL Cholesterol HDL >or= 60 mg/dL High HDL Cholesterol Serum or plasma cholesterol in VLDL measurement (mass/volume)Ordered By: Abraham Montano on 07-08-2023 Cholesterol in VLDL [Mass/Vol] [facility] Comment on above: Test not performedPr evious reported result: 128 mg/dLEdited by: MATIAS on 07/08/23:0212 AMENDED REPORT 07/08/23211 VLDL previously reported as: 128 H mg/dL Serum or plasma low density lipoprotein (LDL) cholesterol measurement (mass/volume)Ordered By: Abraham Montano on 07-08-2023 Cholesterol in LDL [Mass/Vol] [facility] Comment on above: Test not performed Whole blood hemoglobin A1c/t otal hemoglobin ratio (mass fraction)Ordered By: Abraham Montano on 07-08-2023 HbA1c (Bld) [Mass fraction] 12.1 % 3.8-5.6 [facility] Comment on above: Normal < 5.7 % Predi abetic 5.7 - 6.4 % Diabetic >or= 6.5 % Please note range changes. Absolute lymphocyte countOrd ered By: Felton Fonseca on 07-07-2023 Lymphocytes Auto (Unsp spec) [#/Vol] 1.93 10*3/uL 0.83-4.51 [facility] Basophil percentageOrdered B y: Felton Fonseca on 07-07-2023 Basophil percentage 0 SEEN /hpf 0-5 [facility] Basophils/100 WBC (Bld) 0.9 % 0-[address] [facility] Bilirubin [Mass/Vol] 0.70 mg/dL 0.20-1.00 [facility] Comment on above: For patients on eltr ombopag therapy, use of Dimension Elfrida TBIL is not recommended. Chloride [Moles/Vol] 92 mmol/L 98-107 [facility] Eosinophils/100 WBC (Bld) 0.7 % 0-5 [facility] Glucose [Mass/Vol] 760 mg/dL 74-106 [facility] Comment on above: Critical Result(s) C alled at: 21:35:03 07/07/2023 by: MASSIMO DOMINGUEZ TO JANE ROE. Results read back by same.Glucose result greater than or equal to 200 mg/dLsuggests DIABETES MELLITUS per A.D.A. criteria. Neutrophils (Bld) [#/Vol] 10.8 10*3/uL 2.0-7.7 [facility] Neutrophils/100 WBC (Bld) 76.8 % 47-70 [facility] Potassium [Moles/Vol] 5.7 mmol/L 3.5-5.1 [facility] Protein [Mass/Vol] 8.9 g/dL 6.4-8.2 [facility] Sodium [Moles/Vol] 122 mmol/L 136-145 [facility] WBC (Bld) [#/Vol] 14.1 10*3/uL 4.4-11.0 [facility] Bilirubin Test strip Ql (U)O rdered By: Felton Fonseca on 07-07-2023 Bilirubin Ql (U) Negative Negative [facility] Blood erythrocytes count (nu mber/volume)Ordered By: Felton Fonseca on 07-07-2023 RBC (Bld) [#/Vol] 5.80 10*6/uL 4.6-6.2 [facility] Blood hemoglobin measurement (mass/volume)Ordered By: Felton Fonseca on 07-07-2023 Hemoglobin (Bld) [Mass/Vol] 17.5 g/dL 13.0-16.5 [facility] Blood lymphocytes/100 leukoc ytesOrdered By: Felton Fonseca on 07-07-2023 Lymphocytes/100 WBC (Bld) 13.7 % 19-41 [facility] Blood monocytes/100 leukocyt esOrdered By: Felton Fonseca on 07-07-2023 Monocytes/100 WBC (Bld) 5.6 % 0-10 [facility] Blood platelet mean volumeOr dered By: Felton Fonseca on 07-07-2023 Platelet mean volume (Bld) [Entitic vol] 11.2 fL 6.2-12.0 [facility] Determination of erythrocyte mean corpuscular volume (MCV)Ordered By: Felton Fonseca on 07-07-2023 MCV (RBC) [Entitic vol] 88.6 fL 80-[address] [facility] Glucose Glucometer (BldC) [M ass/Vol]Ordered By: Abraham Montano on 07-07-2023 Glucose [Mass/Vol] mg/dL 74-106 [facility] Comment on above: Dr Melva SharmaMA NAGEMENT OF PATIENT CARE PER NURSING PROTOCOL HCO3 (BldA) [Moles/Vol]Order ed By: Felton Fonseca on 07-07-2023 HCO3 (Bld) [Moles/Vol] 11 mmol/L 22-26 [facility] Hematocrit Auto (Bld) [Volum e fraction]Ordered By: Felton Fonseca on 07-07-2023 Hematocrit (Bld) [Volume fraction] 51.4 % 40-54 [facility] Ketones Test strip Ql (U)Ord ered By: Felton Fonseca on 07-07-2023 Ketones Ql (U) 150 mg/dl Negative [facility] Comment on above: CRITICAL VALUE *HCRI TICAL VALUE VERIFIED. CALLED TO AGATHA ELENA07/07/232133 Massimo Dominguez.RESULTS READ BACK BY SAME . Laboratory - Chemistry and C hemistry - challengeOrdered By: Felton Fonseca on 07-07-2023 CO2 [Moles/Vol] 12 mmol/L 23-33 [facility] ALP [Catalytic activity/Vol] 155 U/L 45-117 [facility] ALT [Catalytic activity/Vol] 39 U/L 16-61 [facility] CO2 [Moles/Vol] 11.0 mmol/L 21.0-32.0 [facility] Globulin (S) [Mass/Vol] 4.5 g/dL 2.2-4.[address] [facility] Urea nitrogen/Creatinine [Mass ratio] 13.3 mg/mg 10-20 [facility] Laboratory - Hematology and Cell countsOrdered By: Felton Fonseca on 07-07-2023 Erythrocyte distribution width (RBC) [Entitic vol] 38.5 fL 35.1-43.9 [facility] Erythrocyte distribution width (RBC) [Ratio] 12.0 % 11.6-14.6 [facility] Immature granulocytes/100 WBC (Bld) 2.300 % 0.0-0.9 [facility] Comment on above: IG% - Immature Granu locytes (promyelocytes, myelocytes and metamyelocytes) > 1% indicates that a LEFT SHIFT is Present. MCH (RBC) [Entitic mass] 30.2 pg 27.0-32.0 [facility] Nucleated RBC/100 WBC (Bld) [Ratio] 0 % 0-5 [facility] MCHC Auto (RBC) [Mass/Vol]Or dered By: Felton Fonseca on 07-07-2023 MCHC (RBC) [Mass/Vol] 34.0 g/dL 32-36 [facility] Mucus LM Ql (Urine sed)Order ed By: Felton Fonseca on 07-07-2023 Mucus Ql (Urine sed) 0 SEEN /hpf [facility] Nitrite Test strip Ql (U)Ord ered By: Felton Fonseca on 07-07-2023 Nitrite Ql (U) Negative Negative [facility] No Panel InformationOrdered By: Felton Fonseca on 07-07-2023 Bed Mix Venous Bld PCO2 at Pat Temp 29.4 mmHg 41-51 [facility] Bld Gas Crit Called To/Read Back By Yes [facility] Blood Gas Notified Time 21:22:42 [facility] Blood Gas Notified Kari fonseca [facility] Blood Gas Sample Site Not entered [facility] Blood Gas Specimen Type POLA [facility] Oxygen Delivery Device Not entered [facility] Venous Blood Base Excess -18 mmol/L -1.0-3.5 [facility] Estimated Creatinine Clearance Calc 67.12 ml/min [facility] Estimated GFR (MDRD) Amer 66 mL/min >60 [facility] Comment on above: GFR Calc Estimated GFR (MDRD) Non-Af Amer 54 mL/min >60 [facility] Comment on above: Non- GFR Calc Troponin I High Sensitivity 26 pg/mL 3.0-78.0 [facility] Comment on above: Please Note: New [place] t Units and Gender Specific Reference Ranges. For more information see Policy Stat Procedure Elfrida High Sensitivity Troponin (TNIH) and attachments. PO2 venousOrdered By: Felton valenzuela on 07-07-2023 Oxygen (BldV) [Partial pressure] 36 mm[Hg] 25-40 [facility] Platelets bldOrdered By: Lilly pasha Shannan on 07-07-2023 Platelets (Bld) [#/Vol] 385 10*3/uL 150-450 [facility] Protein Test strip Ql (U)Ord ered By: Felton Fonseca on 07-07-2023 Protein Ql (U) 30 mg/dl Negative [facility] Serum or plasma acetone matt urement (mass/volume)Ordered By: Fetlon Fonseca on 07-07-2023 Acetone [Mass/Vol] MODERATE NEG [facility] Serum or plasma albumin matt urement (mass/volume)Ordered By: Felton Fonseca on 07-07-2023 Albumin [Mass/Vol] 4.4 g/dL 3.2-5.0 [facility] Serum or plasma albumin/glob ulin mass ratioOrdered By: Felton Fonseca on 07-07-2023 Albumin/Globulin [Mass ratio] 1.0 {ratio} 0.9-2.4 [facility] Serum or plasma calcium matt urement (mass/volume)Ordered By: Felton Fonseca on 07-07-2023 Calcium [Mass/Vol] 8.8 mg/dL 8.5-10.1 [facility] Serum or plasma creatinine m easurement (mass/volume)Ordered By: Felton Fonseca on 07-07-2023 Creatinine [Mass/Vol] 1.58 mg/dL 0.70-1.30 [facility] Comment on above: The validity of the calculated GFR & GFRAA in patients over 70 years has not been determined. Clinical correlation is essential. Serum or plasma urea nitroge n measurement (mass/volume)Ordered By: Felton Fonseca on 07-07-2023 Urea nitrogen [Mass/Vol] 21 mg/dL 7-18 [facility] Squamous epithelial cells de tection in urine sediment by light microscopyOrdered By: Felton Fonseca on 07-07-2023 Epithelial cells.squamous LM Ql (Urine sed) 0 SEEN /hpf 0-5 [facility] Thin prep Papanicolaou smear with manual screeningOrdered By: Felton Fonseca on 07-07-2023 Thin prep Papanicolaou smear with manual screening 12 U/L 15-37 [facility] Thin prep Papanicolaou smear with manual screening 19 5-15 [facility] Urine blood detectionOrdered By: Felton Fonseca on 07-07-2023 RBC Ql (U) 25 /ul Negative [facility] RBC Ql (U) 0 SEEN /hpf 0-5 [facility] Urine clarityOrdered By: Lilly Fonseca on 07-07-2023 Clarity (U) Clear Clear [facility] Urine color determinationOrd ered By: Felton Fonseca on 07-07-2023 Color (U) Yellow Yellow [facility] Urine glucose detectionOrder ed By: Felton Fonseac on 07-07-2023 Glucose Ql (U) 1000 mg/dl Normal [facility] Urine leukocyte esterase det ection by dipstickOrdered By: Felton Fonseca on 07-07-2023 Leukocyte esterase Test strip Ql (U) Negative Negative [facility] Urine pHOrdered By: Felton taylor on 07-07-2023 pH (U) 5.0 [pH] 5.0 - 8.0 [facility] Urine sediment bacteria coun t by microscopy (number/high power field)Ordered By: Felton Fonseca on 07-07-2023 Bacteria LM.HPF (Urine sed) [#/Area] 0 /[HPF] None Seen [facility] Urine specific gravity measu rementOrdered By: Felton Fonseca on 07-07-2023 Specific gravity (U) [Rel density] 1.015 1.002-1.030 [facility] Urobilinogen Auto test strip Ql (U)Ordered By: Felton Fonseca on 07-07-2023 Urobilinogen Ql (U) Normal mg/dl Normal [facility] Vital signsOrdered By: Felton Fonseca on 07-07-2023 Oxygen saturation in Blood 56 % 50-70 [facility] pH measurementOrdered By: Joel Fonseca on 07-07-2023 pH (Unsp spec) 7.17 [pH] 7.32-7.42 [facility] Nacho 05-05-2019 EMERGENCY PHYSICIAN REPORT This is a preliminary report only, as the practitioner review and authentication has not occurred. Normal [facility] ER PHYSICIAN ASSESSMENT RECORDS : Discharge Report Event Time: 05/04/2019 22:07 : FlexChartData Event Time: 05/04/2019 22:40 Status: Signed [facility] Lurdes Lenz [[id number]] Attending Physician 1990 Chart (V2b) Chart created at 05/04/2019 22:03 by Corona Robles Chart closed at 05/04/2019 22:05 Entry in Emergency Department at 05/04/2019 20:01 Patient Name: Lurdes Lenz Record Number: [id number] Date: 05/04/2019 22:03 Entered Department at: 05/04/2019 20:01 Patient Seen at: 05/04/2019 21:44 Historian: Patient PCP: *None Chief Complaint:C/O SEVERE EARACHE TO HIS RIGHT EAR THAT STARTED THIS MORNINHG AT 0700 HRS. DENIES ANY TRAUMATIC INJURY OR PUNCTURE Triage Note reviewed and Initial Vital Signs reviewed. Temperature: 98.8 F (37.1 C). Pulse: 111. Respiratory Rate: 20. Blood-pressure: 145/80. Oxygen Saturation: 95%. History of Present Illness: Patient complains of a right earache, denies any recent swimming, denies any drainage from the ear. No recent URI symptoms HPI Elements: Onset: Days ago; Timing: Undetermined; [facility] PATIENT NAME: LURDES LENZ T [address] MEDICAL REC #: [id number] [place] [address] EMERGENCY DEPARTMENT REPORT EMERGENCY DEPARTMENT PHYSICIAN Quality: Aching; Severity: maximum Moderate, now Moderate; Context: At Rest; Exacerbated by: Nothing; Alleviated by: Nothing Review of Systems. Constitutional: negative for Fever Eyes: negative for Eye Pain Ear/Nose/Throat: positive for Earache, negative for Sore Throat Cardio-Vascular: negative for Chest Pain Respiratory: negative for Hemoptysis GI: negative for Abd. Pain : negative for Hematuria Musculo-Skeletal: negative for Back Pain Neurological: negative for Headache Hem/Endo: negative for Bleeding Immunology: negative for Joint Pain Past History, Medications, Allergies, Social History and Family History reviewed in nurses note. Medications: Reviewed RN Note. Allergies: Reviewed RN Note Social History: Reviewed RN Note. Family History: Reviewed RN Note Physical Examination: General: Alert and Well Developed HEENT: Right TM shows a bulging membrane with some seropurulent and a slight hemorrhage behind the eardrum. The canal looks fine. Neck: Supple Respiratory: No Resp Distress Abdomen: Non-tender Back: Non-tender Extremity: No edema Neurological: No Gross Weakness Skin: Warm and Dry Psychological: Mood/Affect Normal Medical Decision Making Patient has otitis media he will receive appropriate pharmacotherapy Additional Information: Discussed Results, Diagnosis and Follow-Up with Patient. Prescription given. Clinical Impression: 1. Acute right otitis media [facility] PATIENT NAME: LURDES LENZ [facility] [address] MEDICAL REC #: [id number] [place] [address] EMERGENCY DEPARTMENT REPORT EMERGENCY DEPARTMENT PHYSICIAN Disposition: Discharged *Home at 04 May 2019, 22:04. Condition: Good MSE completed. I was the primary ED attending.. ===DISCHARGE REPORT=== : Discharge Report Event Time: 05/04/2019 22:07 Status: Draft Reasons to Return to the ER: You must return to the ER for any new, worsening or changing symptoms, or if you feel more ill or sick in any way. This is the most important thing to remember. Follow-up: The care you received in the ER was given on an emergency basis only, and it is often not possible to completely treat or diagnose a problem in a single ER visit. You must see your follow-up doctor for a recheck within a week unless you receive instructions with a different timeframe for follow-up. Please follow all your discharge instructions. Medications: Unless the ER doctor tells you differently, you should take all your regular medications and any new medications prescribed today. Because it is not possible for the ER doctor to review all of your medication side effects or interactions, you must review possible side effects and interactions with your pharmacist when you get your prescriptions filled. EKG and Radiology Results: A auto damage adjuster or radiologist will review any EKG or radiology results provided by the ER doctor. We will contact you if the results in the final EKG or radiology reports require a change in treatment. [facility] PATIENT NAME: LURDES LENZ [address] [place] MEDICAL REC #: [id number] [place] [address] EMERGENCY DEPARTMENT REPORT EMERGENCY DEPARTMENT PHYSICIAN Culture Results: Cultures may have been ordered during your ER visit. We will contact you if the culture results require a change in treatment. Referrals: Most referrals to specialists come from the on-call list You should make your regular doctor aware of any referrals before you schedule the appointment so that they are aware and can make suggestions DIAGNOSIS: Acute right otitis media Otitis externa is the medical term for a skin infection of the ear canal, which is the area from the eardrum to the outside of your ear. These infections are usually caused by bacteria, sometimes by a fungus, and they cause drainage and pain. Many times these infections occur because of a minor scratch in the ear canal or because of constant water in the ear canal, a condition called swimmers ear. The treatment of this infection usually consists of ear drops. When you put the drops into your ear you should lay flat and keep the affected ear pointing up for 5 to 10 minutes. If an ear wick was put into your ear, you should use the drops as just described and have your follow-up doctor remove the wick in 2 to 3 days. It is very important to keep your ear completely dry for the next 7 to 10 days. Otitis media is the medical term for fluid or infection in the middle ear, which is the area behind the eardrum. This fluid is usually the result of a recent cold and can develop over a period of just a few hours. Otitis media can cause a great deal of pain, as well as decreased hearing. The fluid is usually caused by viruses, but sometimes bacteria are to blame. Depending on your infection, the doctor may or may not use antibiotics or decongestants. While you are sick you should try and rest, drink plenty of fluids, and avoid alcohol and tobacco. [facility] PATIENT NAME: LURDES LENZ [address] [place] MEDICAL REC #: [id number] [place] [address] EMERGENCY DEPARTMENT REPORT EMERGENCY DEPARTMENT PHYSICIAN Ibuprofen (if you are not ) or acetaminophen may be used for aches, pains and fever. You should avoid aspirin unless you are taking this medication for another reason. You must use all of your regular medications plus all the medications that were given to you today. UNLESS THE ER DOCTOR GIVES YOU OTHER INSTRUCTIONS, YOU MUST SEE YOUR FOLLOW-UP DOCTOR FOR RECHECK WITHIN 2 TO 3 DAYS YOU MUST RETURN TO THE ER RIGHT AWAY FOR ANY OF THE FOLLOWING:New or increasing fever or chillsIncreasing pain or drainageNew or increasing nausea or vomitingProblems with vision or balanceNumbness or weakness in the arms or legsNew or increasing headache or neck stiffness After careful evaluation, the doctor feels that it is OK to send you home at this time. Just because you were not admitted into the hospital today does not mean that the problem may not become worse. Even very serious problems, like brain or bone infections, may start with a normal examination or test results. Otitis externa is the medical term for a skin infection of the ear canal, which is the area from the eardrum to the outside of your ear. These infections are usually caused by bacteria, sometimes by a fungus, and they cause drainage and pain. Many times these infections occur because of a minor scratch in the ear canal or because of constant water in the ear canal, a condition called swimmers ear. The treatment of this infection usually consists of ear drops. When you put the drops into your ear you should lay flat and keep the affected ear pointing up for 5 to 10 minutes. If an ear wick was put into your ear, you should use the drops as just described and have your follow-up doctor remove the wick in 2 to 3 days. It is very important to keep your ear completely dry for the next 7 to 10 days. Otitis media is the medical term for fluid or infection in the middle ear, which is the area behind the [facility] PATIENT NAME: LURDES LENZ [address] [place] MEDICAL REC #: [id number] [place] [id number] EMERGENCY DEPARTMENT REPORT EMERGENCY DEPARTMENT PHYSICIAN eardrum. This fluid is usually the result of a recent cold and can develop over a period of just a few hours. Otitis media can cause a great deal of pain, as well as decreased hearing. The fluid is usually caused by viruses, but sometimes bacteria are to blame. Depending on your infection, the doctor may or may not use antibiotics or decongestants. While you are sick you should try and rest, drink plenty of fluids, and avoid alcohol and tobacco. Ibuprofen (if you are not ) or acetaminophen may be used for aches, pains and fever. You should avoid aspirin unless you are taking this medication for another reason. You must use all of your regular medications plus all the medications that were given to you today. UNLESS THE ER DOCTOR GIVES YOU OTHER INSTRUCTIONS, YOU MUST SEE YOUR FOLLOW-UP DOCTOR FOR RECHECK WITHIN 2 TO 3 DAYS YOU MUST RETURN TO THE ER RIGHT AWAY FOR ANY OF THE FOLLOWING:New or increasing fever or chillsIncreasing pain or drainageNew or increasing nausea or vomitingProblems with vision or balanceNumbness or weakness in the arms or legsNew or increasing headache or neck stiffness REFERRAL [facility] ([facility]) , Address: [address] [place] [address], , fax: Please call the above number to schedule a follow-up appointment. [facility]), Address: [address] [place] [address], [place] [address], , fax: Please call the above number to schedule a follow-up appointment. next week If symptoms persist [facility] PATIENT NAME: LURDES LENZ [address] MEDICAL REC #: [id number] [place] [address] EMERGENCY DEPARTMENT REPORT EMERGENCY DEPARTMENT PHYSICIAN MEDICATIONS We have given you these prescriptions that you must fill and start taking: Percocet 5 mg-325 mg Tab, count:10, Dose = 1, count:10, q4-6h, count:10, H92.0, 3 days, count:10 Naproxen 500 mg Tab, count:14,2 times a day, count:14 Amoxicillin 500 mg Cap, count:21, Dose = 1, count:21, 3 times a day, count:21 Flonase 50 mcg/Actuation nasl susp, count:1 bottle, Dose =2 sprays each nostril , count:1 bottle, daily, count:1 bottle, Number of Refills = 0, count:1 bottle COMMENTS: Patient Satisfaction: Within the first few days after your visit, you will receive an email and/or phone call regarding your visit. We value your feedback, and would appreciate it if you would take the time to complete this short survey. If you receive a call, it will be between 6p and 8p. EXCUSED ABSENCE FROM WORK AND SCHOOL. Please excuse the above named patient from work/school for today. My signature below indicates that I have received and understand the oral instructions regarding my medical problem. I also acknowledge receipt of this written instruction sheet including a list of major tests and procedures ordered during my visit. I will arrange for follow-up care as indicated by these instructions and referrals. This signed original will be kept in my medical record. Your signature below indicates consent for Case Management to contact critical access hospitalcare providers in an effort to meet your ongoing healthcare needs. This will [facility] PATIENT NAME: LURDES LENZ [address] [place] MEDICAL REC #: [id number] [place] [address] EMERGENCY DEPARTMENT REPORT EMERGENCY DEPARTMENT PHYSICIAN allow forcontinuity of care once you leave the Emergency Department. This exchange of informationwill include, but not be limited to, disclosure of your patient information and possible release of records. 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 DENIES ANY TRAUMATIC INJURY OR PUNCTURE Arrival Date: 05/04/2019 20:01 Triage Date: 05/04/2019 20:01 Mode of Arrival: *Privately Owned Vehicle Transfer From: * Home WC: N Language: Maori Transport: Ambulatory/Walk In BED [facility] PATIENT NAME: LURDES LENZ [address] [place] MEDICAL REC #: [id number] [place] [address] EMERGENCY DEPARTMENT REPORT EMERGENCY DEPARTMENT PHYSICIAN C34 In: 05/04/2019 21:36:54 05/04/2019 21:36:54 AA C34 (Removed From) Out: 05/04/2019 22:47:36 05/04/2019 22:47:36 [facility] PROVIDERS VIVIANE LEAL Provider Contact: 05/04/2019 21:38:21 [facility] End: MD Corona Robles Provider Contact: 05/04/2019 21:44:05 [facility] End: TRIAGE HISTORY ALLERGIES Allergic To: Amoxicillin - Anaphylactic Reaction 05/04/2019 22:33 [facility] Allergic To: Penicillins - *N/A 05/04/2019 22:33 [facility] CURRENT MEDS Name: None 05/04/2019 22:33 [facility] ILLNESS Illness: heart murmur 05/04/2019 22:33 [facility] PAST SURGERY HIST Surgery: Tandamp;A -age- 0705/04/2019 22:33 [facility] PAST SOCIAL HIST Social History: Communicates without difficulty 05/04/2019 22:33 [facility] Social History: Lives with family or significant other 05/04/2019 22:33 [facility] Social History: Alcohol - None 05/04/2019 22:33 KVB [facility] PATIENT NAME: LURDES LENZ [address] [place] MEDICAL REC #: [id number] [place] [id number] EMERGENCY DEPARTMENT REPORT EMERGENCY DEPARTMENT PHYSICIAN Social History: Recreational Drugs - None 05/04/2019 22:33 [facility] Social History: Smoker- 1 PPD 05/04/2019 22:33 [facility] NURSING ASSESSMENT ASSESSMENT NOTES 05/04/2019 22:46 Pt woke up this morning with a severe right earache. Denies trauma to the area. Denies drainage from the ear or difficulty hearing. 05/04/2019 22:47 [facility] TREATMENT 05/04/2019 22:45 Primary DOC Guide - A. 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 Fall Risk Assessment (Age andlt;65) 05/04/2019 22:46 K[facility] History of Falling in last 3 months? No (0) Confusion or Disorientation? No (0) Intoxicated or Sedated? No (0) Impaired Gait? No (0) Mobility Assist Device Used? No (0) Altered Elimination? No (0) Fall Risk Score 1-2 Points = Low Risk. 3-4 Points = Moderate Risk. 5 or more points = High Risk. 0 Fall Score Greater andgt;= 3? No [facility] PATIENT NAME: LURDES LENZ [address] [place] MEDICAL REC #: [id number] [place] [address] EMERGENCY DEPARTMENT REPORT EMERGENCY DEPARTMENT PHYSICIAN 05/04/2019 22:45 Primary DOC Guide - D. Psychosocial Assessment 05/04/2019 22:46 K[facility] Over the Last 2 weeks, how often have you had little interest or pleasure in doing things (0) Not at All Is Psychosocial Assessment Score 3 or more? If score is 3 or more please consult ED Navigator! No Total Psychosocial Assessment Score 0 Over the last 2 weeks, how often have you been feeling down, depressed or hopeless (0) Not at All 05/04/2019 22:45 Primary DOC Guide - E. Family Violence Assessment 05/04/2019 22:46 K[facility] Within the past year, has anyone ever pushed, shoved, slapped, choked, hit, punched or kicked you: No Within the past year, has anyone ever pressured or forced you to have sexual activities when you did not want to: No Do you feel safe and well cared for: Yes Is there a partner from a previous or current relationship that is making you feel unsafe now: No 05/04/2019 22:45 Discharge - Printed discharge instructions given to pt. 05/04/2019 22:46 KVB 05/04/2019 22:45 Discharge - Instructions reviewed with pt and verbalizes understanding 05/04/2019 22:46 KVB 05/04/2019 22:45 Admit/Discharge - Discharge prescriptions given to patient 05/04/2019 22:46 KVB 05/04/2019 22:45 Admit/Discharge - Ambulated with steady gait home 05/04/2019 22:46 [facility] MEDICATIONS IV I AND O VITALS [facility] PATIENT NAME: LURDES LENZ [address] [place] MEDICAL REC #: [id number] [place] [address] EMERGENCY DEPARTMENT REPORT EMERGENCY DEPARTMENT PHYSICIAN VS-ROUTINE Time: 05/04/2019 20:17 B/P: 145/80 - Right Upper Arm - Sitting - Machine Pulse: 111 - Monitor Resp: 20 Sa02: 95 Room Air Temp: 98.80 F - Oral 05/04/2019 20:19 MJ[facility] VS-Pain Time: 05/04/2019 20:17 Pain Level: 10 05/04/2019 20:19 [facility] VS-GCS Time: 05/04/2019 20:17 05/04/2019 20:19 [facility] VS-HT/WT Time: 05/04/2019 20:17 Ht: 70 in. Weight: 300 lbs 05/04/2019 20:19 M[facility] VS-Visual Time: 05/04/2019 20:17 05/04/2019 20:19 [facility] VS-FHT Time: 05/04/2019 20:17 05/04/2019 20:19 [facility] VS-Notes Time: 05/04/2019 20:17 map 107 05/04/2019 20:19 [facility] ORDERS Bactrim DS (PO)* DOSE: 1 tab PO 05/04/2019 22:42 N/A Ordered: 05/04/2019 22:36 By Corona Robles Completed Time: 05/04/2019 22:42 By Corona Robles Noted Time: 05/04/2019 22:38 [facility] Discharge patient 05/04/2019 22:30 N/A Ordered: 05/04/2019 22:05 By . Other Reviewed: 05/04/2019 22:30 By . Other Motrin (PO)(200mg) DOSE: 400 mg PO 05/04/2019 22:37 N/A Ordered: 05/04/2019 21:57 By Corona Robles Completed Time: 05/04/2019 22:37 By Corona Robles Noted Time: 05/04/2019 22:20 KVB Tylenol (PO)*(325mg) DOSE: 975 mg PO 05/04/2019 22:37 N/A Ordered: 05/04/2019 21:57 By Corona Robles Completed Time: 05/04/2019 22:37 By Corona Robles Noted Time: 05/04/2019 22:20 KVB Augmentin (PO)(875mg) DOSE: 875 mg [facility] PATIENT NAME: [facility]URDES LENZ [address] [facility] [address] MEDICAL REC #: [id number] [place] [address] EMERGENCY DEPARTMENT REPORT EMERGENCY DEPARTMENT PHYSICIAN PO 05/04/2019 22:36 N/A Ordered: 05/04/2019 21:57 By Corona Robles Noted Time: 05/04/2019 22:20 [facility] Cancelled: 05/04/2019 22:36 [facility] Cancelled Reason: Patient states allergic DISCHARGE Diagnosis: Acute right otitis media 05/04/2019 22:07 Disposition: Time: 05/04/2019 22:05 Discharge Time: 05/04/2019 22:47 Type: *Discharge Condition: Stable for admission/discharge/tr ansfer after emergency evaluation/treatment Category: *NOT APPLICABLE Referral: 05/04/2019 22:07 Admit Physician: . Other PRESCRIPTIONS Amoxicillin 500 mg Cap 05/04/2019 22:06 SI tid Dispense: 21 / Refills: Flonase 50 mcg/Actuation nasl susp 05/04/2019 22:06 SI sp qd Dispense: 1 inocente / Refills: Bactrim DS 800 mg-160 mg Tab 05/04/2019 22:37 SI bid Dispense: 14 / Refills: Percocet 5 mg-325 mg Tab 05/04/2019 22:06 SI q4-6h Pain Additional Instructions: H92.0, 3 days Dispense: 10 / Refills: Naproxen 500 mg Tab 05/04/2019 22:06 Dispense: 14 / Refills: CHARGES [facility] PATIENT NAME: LURDES LENZ Dr. [place] MEDICAL REC #: [id number] [place] [address] EMERGENCY DEPARTMENT REPORT EMERGENCY DEPARTMENT PHYSICIAN SIGNATURE AYANA DIAZU AGUUSTO Robles MD [facility] LUKE LEAL RN KVB AGATHA CALL [facility] PATIENT NAME: LURDES LENZ Dr. [address] MEDICAL REC #: [id number] [place] [address] EMERGENCY DEPARTMENT REPORT EMERGENCY DEPARTMENT PHYSICIAN Normal [facility] Vital Signs Date Time Vital Sign Value Performing Clinician Faci lity 05-01-2025 09:48-0400 Body height 175.[address] Anabella Pro MD Work Phone: [facility] 05-01-2025 09:48-0400 Body mass index (BMI) [Ratio] 42.5 kg/m2 Dr. Anabella Pro MD Work Phone: [facility] 05-01-2025 09:48-0400 Body temperature 97.5 [degF] Dr. Anabella Pro MD Work Phone: [facility] 05-01-2025 09:48-0400 Body weight 130.[address] Anabella Pro MD Work Phone: [facility] 05-01-2025 09:48-0400 Diastolic blood pressure 85 mm[Hg] Dr. Anabella Pro MD Work Phone: [facility] 05-01-2025 09:48-0400 Heart rate 75 /min Dr. Anabella Pro MD Work Phone: [facility] 05-01-2025 09:48-0400 Respiratory rate 18 /min Dr. Anabella Pro MD Work Phone: [facility] 05-01-2025 09:48-0400 SaO2% (BldA) [Mass fraction] 97 % Dr. Anabella Pro MD Work Phone: [facility] 05-01-2025 09:48-0400 Systolic blood pressure 139 mm[Hg] Dr. Anabella Pro MD Work Phone: [facility] 04-26-2025 10:26-0400 Body height 175.[address] Anabella Pro MD Work Phone: [facility] 04-26-2025 10:26-0400 Body mass index (BMI) [Ratio] 42.3 kg/m2 Dr. Anabella Pro MD Work Phone: [facility] 04-26-2025 10:26-0400 Body temperature 97.4 [degF] Dr. Anabella Pro MD Work Phone: [facility] 04-26-2025 10:26-0400 Body weight 130.[address] Anabella Pro MD Work Phone: [facility] 04-26-2025 10:26-0400 Diastolic blood pressure 84 mm[Hg] Dr. Anabella Pro MD Work Phone: [facility] 04-26-2025 10:26-0400 Heart rate 62 /min Dr. Anabella Pro MD Work Phone: [facility] 04-26-2025 10:26-0400 Respiratory rate 16 /min Dr. Anabella Pro MD Work Phone: [facility] 04-26-2025 10:26-0400 SaO2% (BldA) [Mass fraction] 99 % Dr. Anabella Pro MD Work Phone: [facility] 04-26-2025 10:26-0400 Systolic blood pressure 124 mm[Hg] Dr. Anabella Pro MD Work Phone: [facility] 01-28-2024 11:11-0400 Body height 175.[address] Anabella Pro Work Phone: [facility] 01-28-2024 11:11-0400 Body mass index (BMI) [Ratio] 40.8 kg/m2 Dr. Anabella Pro Work Phone: [facility] 01-28-2024 11:11-0400 Body temperature 97.8 [degF] Dr. Anabella Pro Work Phone: [facility] 01-28-2024 11:11-0400 Body weight 125.[address] Anabella Pro Work Phone: [facility] 01-28-2024 11:11-0400 Diastolic blood pressure 88 mm[Hg] Dr. Anabella Pro Work Phone: [facility] 01-28-2024 11:11-0400 Heart rate 82 /min Dr. Anabella Pro Work Phone: [facility] 01-28-2024 11:11-0400 Respiratory rate 17 /min Dr. Anabella Pro Work Phone: [facility] 01-28-2024 11:11-0400 SaO2% (BldA) [Mass fraction] 97 % Dr. Anabella Pro Work Phone: [facility] 01-28-2024 11:11-0400 Systolic blood pressure 138 mm[Hg] Dr. Anabella Pro Work Phone: [facility] 01-18-2024 15:06-0400 Body mass index (BMI) [Ratio] 40.7 kg/m2 Dr. Anabella Pro Work Phone: [facility] 01-18-2024 15:06-0400 Body temperature 98.6 [degF] Dr. Anabella Pro Work Phone: [facility] 01-18-2024 15:06-0400 Body weight 125.[address] Anabella Pro Work Phone: [facility] 01-18-2024 15:06-0400 Diastolic blood pressure 84 mm[Hg] Dr. Anabella Pro Work Phone: [facility] 01-18-2024 15:06-0400 Heart rate 77 /min Dr. Anabella Pro Work Phone: [facility] 01-18-2024 15:06-0400 SaO2% (BldA) [Mass fraction] 97 % Dr. Anabella Pro Work Phone: [facility] 01-18-2024 15:06-0400 Systolic blood pressure 127 mm[Hg] Dr. Aanbella Pro Work Phone: [facility] 12-12-2023 11:26-0500 Body temperature 97.8 [degF] Dr. Anabella Pro Work Phone: [facility] 12-12-2023 11:26-0500 Diastolic blood pressure 104 mm[Hg] Dr. Anabella Pro Work Phone: [facility] 12-12-2023 11:26-0500 Heart rate 70 /min Dr. Anabella Pro Work Phone: [facility] 12-12-2023 11:26-0500 Respiratory rate 18 /min Dr. Anabella Pro Work Phone: [facility] 12-12-2023 11:26-0500 SaO2% (BldA) [Mass fraction] 98 % Dr. Anabella Pro Work Phone: [facility] 12-12-2023 11:26-0500 Systolic blood pressure 141 mm[Hg] Dr. Anabella Pro Work Phone: [facility] 12-12-2023 10:31-0500 Body height 175.[address] Anabella Pro Work Phone: [facility] 12-12-2023 10:31-0500 Body mass index (BMI) [Ratio] 40.2 kg/m2 Dr. Anabella Pro Work Phone: [facility] 12-12-2023 10:31-0500 Body weight 123.[address] Anabella Pro Work Phone: [facility] 11-10-2023 12:50-0500 Body mass index (BMI) [Ratio] 40.6 kg/m2 Dr. Anabella Pro Work Phone: [facility] 11-10-2023 12:50-0500 Body temperature 97.4 [degF] Dr. Anabella Pro Work Phone: [facility] 11-10-2023 12:50-0500 Body weight 124.[address] Anabella Pro Work Phone: [facility] 11-10-2023 12:50-0500 Diastolic blood pressure 82 mm[Hg] Dr. Anabella Pro Work Phone: [facility] 11-10-2023 12:50-0500 Heart rate 66 /min Dr. Anabella Pro Work Phone: [facility] 11-10-2023 12:50-0500 Respiratory rate 14 /min Dr. Anabella Pro Work Phone: [facility] 11-10-2023 12:50-0500 SaO2% (BldA) [Mass fraction] 97 % Dr. Anabella Pro Work Phone: [facility] 11-10-2023 12:50-0500 Systolic blood pressure 124 mm[Hg] Dr. Anabella Pro Work Phone: [facility] 10-28-2023 09:49-0500 Body height 175.26 cm No Primary Care Physician [facility] 10-28-2023 09:49-0500 Body mass index (BMI) [Ratio] 40 kg/m2 No Primary Care Physician [facility] 10-28-2023 09:49-0500 Body temperature 97.8 [degF] No Primary Care Physician [facility] 10-28-2023 09:49-0500 Body weight 122.98 kg No Primary Care Physician [facility] 10-28-2023 09:49-0500 Diastolic blood pressure 84 mm[Hg] No Primary Care Physician [facility] 10-28-2023 09:49-0500 Heart rate 61 /min No Primary Care Physician [facility] 10-28-2023 09:49-0500 Respiratory rate 16 /min No Primary Care Physician [facility] 10-28-2023 09:49-0500 SaO2% (BldA) [Mass fraction] 98 % No Primary Care Physician [facility] 10-28-2023 09:49-0500 Systolic blood pressure 124 mm[Hg] No Primary Care Physician [facility] 10-07-2023 15:09-0500 Body mass index (BMI) [Ratio] 41.3 kg/m2 No Primary Care Physician [facility] 10-07-2023 15:09-0500 Body temperature 97.5 [degF] No Primary Care Physician [facility] 10-07-2023 15:09-0500 Body weight 127 kg No Primary Care Physician [facility] 10-07-2023 15:09-0500 Diastolic blood pressure 74 mm[Hg] No Primary Care Physician [facility] 10-07-2023 15:09-0500 Heart rate 78 /min No Primary Care Physician [facility] 10-07-2023 15:09-0500 SaO2% (BldA) [Mass fraction] 95 % No Primary Care Physician [facility] 10-07-2023 15:09-0500 Systolic blood pressure 146 mm[Hg] No Primary Care Physician [facility] 08-06-2023 10:51-0400 Body mass index (BMI) [Ratio] 43.2 kg/m2 No Primary Care Physician [facility] 08-06-2023 10:51-0400 Body temperature 98.2 [degF] No Primary Care Physician [facility] 08-06-2023 10:51-0400 Body weight 132.9 kg No Primary Care Physician [facility] 08-06-2023 10:51-0400 Diastolic blood pressure 87 mm[Hg] No Primary Care Physician [facility] 08-06-2023 10:51-0400 Heart rate 74 /min No Primary Care Physician [facility] 08-06-2023 10:51-0400 Respiratory rate 18 /min No Primary Care Physician [facility] 08-06-2023 10:51-0400 SaO2% (BldA) [Mass fraction] 95 % No Primary Care Physician [facility] 08-06-2023 10:51-0400 Systolic blood pressure 123 mm[Hg] No Primary Care Physician [facility] 07-23-2023 11:24-0400 Diastolic blood pressure 72 mm[Hg] No Primary Care Physician [facility] 07-23-2023 11:24-0400 Systolic blood pressure 128 mm[Hg] No Primary Care Physician [facility] 07-23-2023 10:17-0400 Body mass index (BMI) [Ratio] 43.4 kg/m2 No Primary Care Physician [facility] 07-23-2023 10:17-0400 Body temperature 95.2 [degF] No Primary Care Physician [facility] 07-23-2023 10:17-0400 Body weight 133.46 kg No Primary Care Physician [facility] 07-23-2023 10:17-0400 Heart rate 75 /min No Primary Care Physician [facility] 07-23-2023 10:17-0400 Respiratory rate 18 /min No Primary Care Physician [facility] 07-23-2023 10:17-0400 SaO2% (BldA) [Mass fraction] 98 % No Primary Care Physician [facility] 07-10-2023 09:00-0400 Body temperature 97.1 [degF] No Primary Care Physician [facility] 07-10-2023 09:00-0400 Diastolic blood pressure 83 mm[Hg] No Primary Care Physician [facility] 07-10-2023 09:00-0400 Heart rate 84 /min No Primary Care Physician [facility] 07-10-2023 09:00-0400 Respiratory rate 18 /min No Primary Care Physician [facility] 07-10-2023 09:00-0400 SaO2% (BldA) [Mass fraction] 99 % No Primary Care Physician [facility] 07-10-2023 09:00-0400 Systolic blood pressure 133 mm[Hg] No Primary Care Physician [facility] 07-10-2023 06:00-0400 Body mass index (BMI) [Ratio] 42.1 kg/m2 No Primary Care Physician [facility] 07-10-2023 06:00-0400 Body weight 129.1 kg No Primary Care Physician [facility] 07-07-2023 23:03-0400 Body temperature 97.4 [degF] [facility] 07-07-2023 23:03-0400 Diastolic blood pressure 113 mm[Hg] [facility] 07-07-2023 23:03-0400 Heart rate 94 /min [facility] 07-07-2023 23:03-0400 Respiratory rate 16 /min [facility] 07-07-2023 23:03-0400 SaO2% (BldA) [Mass fraction] 99 % [facility] 07-07-2023 23:03-0400 Systolic blood pressure 170 mm[Hg] [facility] 07-07-2023 19:31-0400 Body height 175.26 cm [facility] 07-07-2023 19:31-0400 Body mass index (BMI) [Ratio] 40.8 kg/m2 [facility] 07-07-2023 19:31-0400 Body weight 125.64 kg [facility] Encounters Encounter Date Encounter Type Care Provider Facility Start: 05-04-2025 End: 05-04-2025 [place]erry Vo [place] Start: 05-01-2025 End: 05-01-[address] Wild Vo MD -[facility] Work Phone: Start: 05-01-2025 End: 05-01-[address] Anabella Pro MD Work Phone: -[facility] Start: 04-26-2025 End: 04-26-[address] Anabella Pro MD -[facility] Work Phone: Start: 04-26-2025 End: 04-26-[address] Anabella Pro MD Work Phone: -[facility] Start: 04-26-2025 End: 04-26-2025 ambulatory Anabella Pro Facility:[facility] Start: 12-14-2024 End: 12-14-2024 ambulatory Anabella Pro [place] Start: 10-27-2024 End: 10-27-2024 ambulatory Anabella Morteza Facility:[facility] Start: 08-02-2024 End: 08-02-2024 ambulatory Anabella Morteza [facility] Start: 08-02-2024 End: 08-02-2024 ambulatory Anabellasam Pro Facility:[facility] Start: 07-04-2024 End: 07-04-2024 ambulatory Anabellasulaiman Pro [place] Start: 07-04-2024 End: 07-04-2024 ambulatory Anabellasam Roldanlay Facility:[facility] Start: 06-16-2024 Encounter for genera l adult medical examination without abnormal findings Anabella Pro [facility] Start: 05-19-2024 End: 05-19-2024 ambulatory Anabella Roldanlay Facility:[facility] Start: 02-09-2024 End: 02-09-[address] Anabella Pro Work Phone: [facility] Work Phone: Start: 02-09-2024 End: 02-09-[address] [facility] Work Phone: Start: 01-28-2024 End: 01-28-[address] Anabella Pro Work Phone: [facility] Work Phone: Start: 01-18-2024 End: 01-18-[address] Anabella Pro Work Phone: [facility] Work Phone: Start: 12-12-2023 End: 12-12-2023 Emergency department patient visit Dr. Anabella Pro Work Phone: [facility] Work Phone: Start: 12-12-2023 End: 12-12-2023 Patient encounter procedure Magdalene Strong APRN.[facility] Work Phone: [facility] Comment on above: Chest tightness (Birdie giuliano Dx); Dizziness Start: 11-18-2023 End: 11-18-2023 ambulatory Facility:[facility] Start: 11-10-2023 End: 11-10-[address] Anabella Pro Work Phone: [facility] Work Phone: Start: 10-28-2023 End: 10-28-2023 ambulatory No Primary Care Physician [facility] Work Phone: Start: 10-28-2023 End: 10-28-2023 Patient encounter procedure No Primary Care Physician [facility] Work Phone: Start: 10-07-2023 End: 10-07-2023 Patient encounter procedure No Primary Care Physician [facility] Work Phone: Start: 08-06-2023 End: 08-06-2023 Patient encounter procedure No Primary Care Physician [facility] Work Phone: Start: 07-23-2023 End: 07-23-2023 Patient encounter procedure No Primary Care Physician [facility] Start: 07-23-2023 End: 07-23-2023 Patient encounter procedure No Primary Care Physician [facility] Work Phone: Start: 07-09-2023 Non-patient / Non-visit No Primary Care Physician [facility] Work Phone: Start: 07-08-2023 Non-patient / Non-visit No Primary Care Physician [facility] Work Phone: Start: 07-07-2023 End: 07-10-2023 Evaluation and management of inpatient [facility] Work Phone: Procedures Date Procedure Procedure Detail Performing Clinician Start: 04-26-2025 Vitamin D, 25-hydrox y measurement Dr. Anabella Pro MD Work Phone: Comment on above: Vitamin D StatusDefi ciency: <20 ng/mL (50nmol/L)Insufficiency: 20-30 ng/mL (50-75 nmol/L)Sufficiency: 30-100 ng/mL (75-250 nmol/L)Toxicity: >100 ng/mL (>250 nmol/L) Start: 07-07-2023 Plain chest X-ray History of tonsillectomy Hx of tonsillect palak No Primary Care Physician Plan of Treatment Date Care Activity Detail Author Start: 05-15-2025 ambulatory Ambulatory Facility:[facility] Start: 04-26-2025 CBC W Auto Differential panel - Blood [facility] Start: 04-26-2025 Comprehensive metabolic 2000 panel - Serum or Plasma [facility] Start: 04-26-2025 Lipid 1996 panel - Serum or Plasma [facility] Start: 04-26-2025 Vitamin D, 25-hydroxy measurement 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 Start: 12-12-2023 [facility] Start: 11-10-[address] [facility] Work Phone: Start: 10-19-2023 Depression Assessment Depression Assessment [facility] Start: 07-23-[address] [facility] Work Phone: Start: 07-09-[address] [facility] Start: 07-08-2023 Care planning and problem solving actions [facility] Start: 07-08-2023 Care regimes management [facility] Start: 07-08-2023 Notification of physician [facility] Start: 07-08-2023 [facility] Start: 07-08-2023 End: 07-08-[address] [facility] Start: 07-07-2023 End: 07-07-2023 Following clinical pathway protocol [facility] Start: 07-07-2023 Lab findings surveillance [facility] Start: 07-07-[address] [facility] Start: 07-07-2023 Assessment of risk of venous thromboembolism [facility] Start: 07-07-2023 Care regimes management [facility] Start: 07-07-[address] [facility] Start: 07-07-2023 Continuous pulse oximetry [facility] Start: 07-07-2023 Insertion of catheter into peripheral vein [facility] Start: 07-07-2023 Notification of physician [facility] Start: 07-07-2023 Patient referral to dietitian [facility] Start: 07-07-2023 Providing care according to standard [facility] Start: 07-07-2023 Referral to occupational therapist [facility] Start: 07-07-[address] [facility] Start: 07-07-2023 Vital signs measurements [facility] Start: 07-07-2023 [facility] Start: 07-07-[address] [facility] Start: 07-07-[address] [facility] Start: 07-07-[address] [facility] Start: 09-23-2015 Urine microalbumin profile DTaP,Tdap,Td Vaccine (4 - Tdap) [facility] Start: 2009 Hepatitis C screening Hepatitis C Screening [facility] Start: 2009 HIV screening HIV Screening [facility] Start: 1991 Covid-19 Vaccine (#1) Covid-19 Vaccine (#1) [facility] Start: 1991 Hepatitis B Vaccine (1 of 3 - 3-dose series) Hepatitis B Vaccine (1 of 3 - 3-dose series) [facility] Alanine aminotransfe rase [Enzymatic activity/volume] in Serum or Plasma [facility] Albumin [Mass/volume ] in Serum or Plasma [facility] Alkaline phosphatase [Enzymatic activity/volume] in Serum or Plasma [facility] Anion gap in Serum or Plasma [facility] Anion gap measurement [facility] Anion gap measurement [facility] Bilirubin, total measurement [facility] BUN/Creatinine ratio [facility] BUN/Creatinine ratio [facility] BUN/Creatinine ratio [facility] Calcium [Mass/volume ] in Serum or Plasma [facility] Calcium [Mass/volume ] in Serum or Plasma [facility] Calcium [Mass/volume ] in Serum or Plasma [facility] Carbon dioxide, tota l [Moles/volume] in Central venous blood [facility] Carbon dioxide, tota l [Moles/volume] in Serum or Plasma [facility] Carbon dioxide, tota l [Moles/volume] in Serum or Plasma [facility] Chloride [Moles/volu me] in Serum or Plasma [facility] Chloride [Moles/volu me] in Serum or Plasma [facility] Cholesterol [Mass/vo lume] in Serum or Plasma [facility] Cholesterol in HDL [Mass/volume] in Serum or Plasma [facility] Creatinine [Mass/vol ume] in Serum or Plasma [facility] Creatinine [Moles/vo lume] in Serum or Plasma [facility] Creatinine [Moles/vo lume] in Serum or Plasma [facility] Erythrocyte mean cor puscular volume determination [facility] Glucose [Mass/volume ] in Serum or Plasma [facility] Glucose [Mass/volume ] in Serum or Plasma [facility] Glucose [Mass/volume ] in Serum or Plasma [facility] Hematocrit [Volume F raction] of Blood [facility] Hemoglobin [Mass/vol ume] in Blood [facility] Leukocytes [#/volume ] in Blood [facility] Low density lipoprot ein cholesterol measurement [facility] Mean corpuscular hem oglobin concentration determination [facility] Mean corpuscular hem oglobin determination [facility] Measurement of renal function [facility] Measurement of renal function [facility] Measurement of renal function [facility] Neutrophil count [facility] Neutrophil percent differential count [facility] Patient Education [facility] Work Phone: Patient referral [facility] Work Phone: Platelets [#/volume] in Blood [facility] Potassium [Moles/vol ume] in Serum or Plasma [facility] Potassium [Moles/vol ume] in Serum or Plasma [facility] Potassium measurement [facility] Red blood cell count [facility] Red cell distributio n width determination [facility] Serum chloride measurement [facility] Sodium [Moles/volume ] in Serum or Plasma [facility] Sodium [Moles/volume ] in Serum or Plasma [facility] Sodium measurement [facility] Total cholesterol:HD L ratio measurement [facility] Total protein measurement [facility] Triglycerides measurement [facility] Urea nitrogen [Mass/ volume] in Serum or Plasma [facility] Urea nitrogen [Mass/ volume] in Serum or [facility] Urea nitrogen [Mass/ volume] in Serum or Plasma [facility] Urine microalbumin/creatinine ratio measurement [facility] VLDL cholesterol measurement [facility] Immunizations Immunization Date Immunization Notes Care Provider Fa [facility] 10-27-2024 influenza, injectabl e, madin jamila canine kidney, preservative free Dr. Anabella Pro MD Work Phone: [facility] 10-27-2024 Influenza, injectabl e, Madin [place] Canine Kidney, preservative free, quadrivalent Dr. Anabella Pro MD Work Phone: [facility] 07-23-2023 influenza, injectabl e, quadrivalent, preservative free No Primary Care Physician [facility] 07-23-2023 pneumococcal polysaccharide vaccine, 23 valent No Primary Care Physician [facility] 09-22-2015 tetanus and diphther ia toxoids, adsorbed, preservative free, for adult use (2 Lf of tetanus toxoid and 2 Lf of diphtheria toxoid) [facility] 09-01-2003 influenza, injectabl e, quadrivalent, preservative free No Primary Care Physician [facility] 05-01-2003 measles, mumps and rubella virus vaccine No Primary Care Physician [facility] 03-07-1993 TD(adult) unspecifie d formulation No Primary Care Physician [facility] 03-07-1993 trivalent poliovirus vaccine, live, oral No Primary Care Physician [facility] 08-16-1992 measles, mumps and rubella virus vaccine No Primary Care Physician [facility] 02-23-1992 diphtheria, tetanus toxoids and acellular pertussis vaccine No Primary Care Physician [facility] 1991 diphtheria, tetanus toxoids and acellular pertussis vaccine No Primary Care Physician [facility] 1991 trivalent poliovirus vaccine, live, oral No Primary Care Physician [facility] 1991 diphtheria, tetanus toxoids and acellular pertussis vaccine No Primary Care Physician [facility] 1991 trivalent poliovirus vaccine, live, oral No Primary Care Physician [facility] Payers Date Payer Category Payer Self-pay [id number] 2023 Medicaid [id number] 2023 Medicaid [facility] [employer] [id number] 2023-Present [phone] [address] [place] [address] Medicaid [id number] Unknown [id number] Unknown [id number] Unknown [id number] Unknown [id number] Unknown [id number] Unknown [id number] Unknown [id number] Unknown [id number] Unknown [id number] Unknown [id number] Unknown [id number] Unknown [id number] Social History Date Type Detail Facility Start: 07-07-2023 End: 01-26-2024 Tobacco smoking status UTIS Unknown if ever smoked [facility] Start: 1990 Sex Assigned At Male [facility] Start: 1990 Sex Assigned At Not on file [facility] Gender identity Not on file [facility] Start: 10-27-2024 [facility] Start: 05-01-2025 [facility] ([facility] Medical Equipment Procedure Code Equipment Code Equipment Origin al Text Equipment Identifier Dates Lancets-Blood Glucose Strips Start: 07-09-2023 Pen Needle, Diab etic (Bd Ultra-Fine Diana Pen Needle) 32 gauge x 5/32 needle Start: 10-20-2023 Pen Needle, Diab etic (Bd Ultra-Fine Diana Pen Needle) 32 gauge x 5/32 needle Start: 07-09-2023 End: 10-20-2023 Lancets-Blood Glucose Strips Start: 07-09-2023 Pen Needle, Diab etic (Bd Ultra-Fine Diana Pen Needle) 32 gauge x 5/32 needle Start: 10-20-2023 Pen Needle, Diab etic (Bd Ultra-Fine Diana Pen Needle) 32 gauge x 5/32 needle Start: 07-09-2023 End: 10-20-2023 Lancets-Blood Glucose Strips Start: 07-09-2023 Pen Needle, Diab etic (Bd Ultra-Fine Diana Pen Needle) 32 gauge x 5/32 needle Start: 01-28-2024 Pen Needle, Diab etic (Bd Ultra-Fine Diana Pen Needle) 32 gauge x 5/32 needle Start: 07-09-2023 End: 10-20-2023 Pen Needle, Diab etic (Bd Ultra-Fine Diana Pen Needle) 32 gauge x 5/32 needle Start: 10-20-2023 End: 01-28-2024 Lancets-Blood Glucose Strips 30 gauge combo pack Start: 07-09-2023 Pen Needle, Diab etic (Bd Ultra-Fine Diana Pen Needle) 32 gauge x 5/32 needle Start: 01-28-2024 Pen Needle, Diab etic (Bd Ultra-Fine Diana Pen Needle) 32 gauge x 5/32 needle Start: 07-09-2023 End: 10-20-2023 Pen Needle, Diab etic (Bd Ultra-Fine Diana Pen Needle) 32 gauge x 5/32 needle Start: 10-20-2023 End: 01-28-2024 Lancets-Blood Glucose Strips 30 gauge combo pack Start: 07-09-2023 Pen Needle, Diab etic (Bd Ultra-Fine Diana Pen Needle) 32 gauge x 5/32 needle Start: 01-28-2024 Pen Needle, Diab etic (Bd Ultra-Fine Diana Pen Needle) 32 gauge x 5/32 needle Start: 07-09-2023 End: 10-20-2023 Pen Needle, Diab etic (Bd Ultra-Fine Diana Pen Needle) 32 gauge x 5/32 needle Start: 10-20-2023 End: 01-28-2024 Lancets-Blood Glucose Strips 30 gauge combo pack Start: 07-09-2023 Pen Needle, Diab etic (Bd Ultra-Fine Diana Pen Needle) 32 gauge x 5/32 needle Start: 01-28-2024 Pen Needle, Diab etic (Bd Ultra-Fine Diana Pen Needle) 32 gauge x 5/32 needle Start: 07-09-2023 End: 10-20-2023 Pen Needle, Diab etic (Bd Ultra-Fine Diana Pen Needle) 32 gauge x 5/32 needle Start: 10-20-2023 End: 01-28-2024 Goals Date Patient Goal Desired Activity /State Functional Status Date Assessment Result Facility 07-10-2023 Functional status Ambulates [facility] Work Phone: Mental Status Date Assessment Result Facility 07-10-2023 Cognitive function Voice/Name [facility] Work Phone: 07-07-2023 Cognitive function Level Of Cons ciousness Awake;Alert;Appropriate;Follow s Commands [facility] Work Phone: Clinical Notes 07-07-2023 to 04-26-2025 Note Date & Type Note Facility 04-26-2025 Evaluation note Diagnosis Onset Date Resolution Moderate major depression noneactive April 26, 2025 10:11am [facility]AR[facility] (obstructive sleep apnea) noneactive April 26, 2025 10:11am Umbilical hernia without obstruction and without gangrene noneactive April 26, 2025 10:11am Severe anxiety noneactive April 26, 2025 10:11am Controlled type 2 diabetes mellitus noneactive April 26, 2025 10:11am Vitamin d deficiency noneactive April 26, 2025 10:11am Hernia noneactive May 01 9:32am [facility] Work Phone: 1(921) 815-702907-09-2025 Evaluation note* Diagnosis Onset Date Resolution Status Admit Date Moderate major depression noneactive April 26, 2025 10:11am DAMARIS (obstructive sleep apnea) noneac tive April 26, 2025 10:11am Umbilical hernia without obstruction and without gangrene noneactive April 26, 2025 1 0:11am Severe anxiety noneactive April 26, 2025 10:11am Controlled type 2 diabetes mellitus noneactive April 26, 2025 1 0:11am Vitamin d deficiency noneactive April 26, 2025 10:11am Umbilical hernia acute April 9:32am Hernia noneactive May 01 9:32am [facility] Work Phone: 1(379) 855-691502-24-2024 History of Present illness Narrative* Magdalene Strong APRN.[facility] - 12/12/2023 10:19 AM EST Patient came in with complaints of shortness [...] okay with this care plan and prefers totake himself he does not want to squad called. [facility] NoteHNO ID: [id number] Author: EMMETT JARQUIN MD Service: ? Author Type: Physician [...] treatment with rest, cold medicine, and analgesia. Emmett Jarquin, [facility]09-19-2023 Discharge summary Author Felton Fonseca [facility] July 07, 2023 10:53pm Note Date/Time July 07, 2023 8:52pm [facility] Medical Records Department [address] [place] [address] Emergency Department Summary 07/07/23 MR#: [id number] Acct: [id number] Name: LURDES LENZ Rep #:[id number] : 1990 33 From: Felton Fonseca MD PCP: Care Physician,No Primary Status :REG ER Location: ED HPI History of Present Illness Chief Complaint: General Illness Narrative Narrative: 33-year-old male presents with generalized illness and not feeling well for the last few weeks. He endorses polyuria and polydipsia as well. Intermittently hehas had nausea and vomiting. He states his insides feel like they are burning. He quit smoking over a year ago. He denies other symptoms, no fevers or chills. No exacerbating or alleviating factors. He has a generalizedweakness on occasion as well. PFSH PFSH Medical History no medical history no medical history Home Medications hydrocodone-acetaminophen 5-325mg 5mg-325mg 1 - 2 tab PO Q6H PRN PRN Pain ##20 09/22/15 [Rx Last Taken Unknown] omeprazole 20 mg capsule,delayed release 20 mg PO DAILY 09/22/15 [History Last Taken Unknown] Allergy/AdvReac Type Severity Reaction Status Date / Time amoxicillin Allergy Swelling Verified 07/07/23 19:35 Social History Smoking Status: Current every day smoker tobacco type: cigarettes ROS ROS ED ROS Narrative Constitutional: No fever, no chills. Generalized weakness. HEENT: No sore throat. No neck pain. No loss of vision. No rhinorrhea. Cardiovascular: No chest pain. No palpitations. No pedal edema. Respiratory: No cough, no shortness of breath. Abdominal: No abdominal pain. Intermittent nausea and vomiting. Genitourinary: No dysuria. No hematuria. Endocrine: Polyuria. Polydipsia. Musculoskeletal: No myalgias. No arthralgias. Neurologic: No headaches. No dizziness. No lightheadedness. Skin: No rash. No change in color. Psychiatric: No depression. No anxiety. EXAM Physical Exam Narrative Exam Narrative: Afebrile. Vital signs noted. HEENT: Normocephalic. Atraumatic. PERRL, EOMI. Neck soft and supple. No pointtenderness or step off. Cardiovascular: Positive tachycardia no murmurs, rubs, or gallops appreciated. Respiratory: No tachypnea. Lungs clear to auscultation bilaterally. Gastrointestinal: Abdomen soft, nontender, with normoactive bowel sounds. No rebound or guarding. Neurological: Awake. Alert. Nonfocal, nonlateralizing. Skin: No rash. Normal color. No pallor. Musculoskeletal: No pedal edema. Full range of motion extremities. Const Vital Signs: 07/07/23 19:31 07/07/23 20:34 07/07/23 20:34 Temperature 97.0 F L 98.6 F Temperature Source Temporal Temporal Pulse Rate 118 H 104 H Respiratory Rate 20 H 20 H Respiratory Effort Short of Breath Labored Respiratory Pattern [place] Blood Pressure 146/127 H 178/126 H Blood Pressure Mean 133 143 Pulse Ox 98 99 Oxygen Delivery Method Room Air Room Air 07/07/23 21:38 07/07/23 21:38 07/07/23 21:42 Temperature 98.3 F Temperature Source Temporal Pulse Rate 98 98 97 Respiratory Rate 22 H 22 H 28 H Respiratory Effort Respiratory Pattern Blood Pressure 178/95 H 178/95 H 178/95 H Blood Pressure Mean 122 122 122 Pulse Ox 98 98 97 Oxygen Delivery Method Room Air Room Air Room Air 07/07/23 22:26 Temperature 98.3 F Temperature Source Temporal Pulse Rate 108 H Respiratory Rate 26 H Respiratory Effort Respiratory Pattern Blood Pressure 162/117 H Blood Pressure Mean 132 Pulse Ox 99 Oxygen Delivery Method Room Air MDM MDM MDM Narrative Medical decision making narrative: The top of the differential diagnosis is new onset diabetes. His micro blood sugar in triage was greater than 600. Additionally, now there is concern for diabetic ketoacidosis. He will be bolused 2 L and comprehensive work-up will bepursued. EG was obtained and interpreted by myself independently as sinus tachycardia at 103 bpm without ectopy or acute ST changes. No STEMI. I reviewed his laboratory work from today and he has slightly elevated white count of 14.1 which I think is nonspecific, hemoglobin 17.5 which might be hemoconcentration with hematocrit 51.4, platelet count normal at 385, CMP is significant for sodium low at 122 with potassium 5.7 but I see no acute EKG changes requiring calcium infusion. His sodium and chloride may be lowered secondary to his hyperglycemia as his glucose is 760 on his CMP. He has an anion gap elevated at 19. AST is low at 12 with ALT normal at 39 with alk phos of 155 which I think is nonspecific. Venous blood gas does show pH of 7.12 witha PCO2 of 29. His serum ketones are moderate. I do think that he does have newonset diabetes and is currently in diabetic ketoacidosis. After 2 L of normal saline infused, his blood sugar is down to the 500s according to the RN. He will be started on an insulin drip at 0.1 units/kg/h. Urinalysis obtained and reviewed which does show glucose and ketones but no evidence of infection. I donot feel antibiotics are indicated. Chest x-ray interpreted by myself independently shows no evidence of an acute process, no pneumonia or pneumothorax. I reviewed the radiology report which confirms my independent interpretation. Given his new onset diabetes and DKA, patient discussed with the hospitalist for admission to the ICU. Critical care time 32 minutes including time spent counseling patient, arranging admission, and consultation with hospitalist. Patient is in guarded but stable condition. History & Record Review Discussion w/independent historian: Patient and Significant other Additional record(s) reviewed:: Prior ED visit Lab Data Attestation: I reviewed the patient's lab results. Labs: Laboratory Results - last 24 hr 07/07/23 07/07/23 07/07/23 20:29 20:40 21:05 WBC 14.1 H RBC 5.80 Hgb 17.5 H Hct 51.4 MCV 88.6 MCH 30.2 MCHC 34.0 RDW Std Deviation 38.5 RDW Coeff of Shantel 12.0 Plt Count 385 MPV 11.2 Immature Gran % (Auto) 2.300 H Neut % (Auto) 76.8 H Lymph % (Auto) 13.7 L [place] % (Auto) 5.6 Eos % (Auto) 0.7 Baso % (Auto) 0.9 Absolute Neuts (auto) 10.8 H Absolute Lymphs (auto) 1.93 Nucleated RBC % 0 Sodium 122 L Potassium 5.7 H Chloride 92 L Carbon Dioxide 11.0 L Anion Gap 19 H BUN 21 H Creatinine 1.58 H Estim Creat Clear Calc 67.12 Est GFR (MDRD) Af Amer 66 Est GFR (MDRD) Non-Af 54 L BUN/Creatinine Ratio 13.3 Glucose 760 H* Calcium 8.8 Total Bilirubin 0.70 AST 12 L ALT 39 Alkaline Phosphatase 155 H Troponin I High Sens 26 Total Protein 8.9 H Albumin 4.4 Globulin 4.5 H Albumin/Globulin Ratio 1.0 Urine Color Yellow Urine Clarity Clear Urine pH 5.0 Ur Specific [place] 1.015 Urine Protein 30 H Urine Glucose (UA) 1000 H Urine Ketones 150 A* Urine Occult Blood 25 H Urine Nitrite Negative Urine Bilirubin Negative Urine Urobilinogen Normal Ur Leukocyte Esterase Negative Urine RBC 0 SEEN Urine WBC 0 SEEN Ur Squamous Epith Cells 0 SEEN Urine Bacteria 0 SEEN Urine Mucus 0 SEEN Acetone Level MODERATE H POC Glucose > 500 H* 07/07/23 22:24 WBC RBC Hgb Hct MCV MCH MCHC RDW Std Deviation RDW Coeff of Shantel Plt Count MPV Immature Gran % (Auto) Neut % (Auto) Lymph % (Auto) [place] % (Auto) Eos % (Auto) Baso % (Auto) Absolute Neuts (auto) Absolute Lymphs (auto) Nucleated RBC % Sodium Potassium Chloride Carbon Dioxide Anion Gap BUN Creatinine Estim Creat Clear Calc Est GFR (MDRD) Af Amer Est GFR (MDRD) Non-Af BUN/Creatinine Ratio Glucose Calcium Total Bilirubin AST ALT Alkaline Phosphatase Troponin I High Sens Total Protein Albumin Globulin Albumin/Globulin Ratio Urine Color Urine Clarity Urine pH Ur Specific [place] Urine Protein Urine Glucose (UA) Urine Ketones Urine Occult Blood Urine Nitrite Urine Bilirubin Urine Urobilinogen Ur Leukocyte Esterase Urine RBC Urine WBC Ur Squamous Epith Cells Urine Bacteria Urine Mucus Acetone Level POC Glucose > 500 H* ABG Data ABG results: ABG 07/07/23 21:21 Specimen Type POLA Sample Site Not entered VBG pH 7.17 L* VBG pO2 36 VBG HCO3 11 L VBG Total CO2 12 L VBG O2 Sat (Calc) 56 VBG Base Excess -18 L POC Mix VBG pCO2 Pt Tmp 29.4 L O2 Delivery Device Not entered Crit Call To/Read Back Yes Blood Gas Notified Kari fonseca Blood Gas Notified Time 21:22:42 Radiography Diagnostic Testing: Clinical Impression(s) from Imaging Studies Chest X-Ray 07/07/23 20:52 IMPRESSION: Chest with no acute disease. Electronically Signed: Wild Hearn MD at 21:31 EDT , Management Discussion w/another healthcare provider: Hospitalist Critical Care Time Critical Care Time: Yes Critical care time (excluding procedures): 30-74 minutes (32), Including time spent:, Discussing w/Patient &/or Family/Dining Room Cashier, Discussing w/Consultants and Arranging Admission or Transfer Discharge Plan Dx/Rx/DC Orders Clinical Impression: Diabetic ketoacidosis, Diabetes mellitus, new onset, Nausea and vomiting Disposition Disposition: Acute Care Hospital [facility] What to do if you have Problems For any increased pain, shortness of breath, bleeding, nausea or vomiting, chestpain, or any unexpected problems, contact your Primary Care Provider. Call [facility] ([phone]) or report to the closest Emergency Room. Call 911 if necessary. 07/07/232252 <Electronically signed by Felton Fonseca MD> Cosigner Signature (if applicable): CC: No Primary Care Physician ~ Signed [facility] Work Phone: Discharge summary Author Dawson Newell [facility] December 12, 2023 11:19am Note Date/Time December 12, 2023 11:19am [facility] Medical Records Department [address] [place] [id number] Emergency Department Summary 12/12/23 MR#: [id number] Acct: [id number] Name: LURDES LENZ Rep #:[id number] : 1990 33 From: Dawson Newell MD PCP: Dr. Anabella Pro MD Status:REG ER Location: ED HPI History of Present Illness Chief Complaint: Shortness of Breath Detail of Chief Complaint: Anxiety Informant: patient Onset/Context/Timing Onset: Weeks Context: gradual Timing: Intermittent Quality: Negative for Dyspnea on exertion, Orthopnea, PND or Wheezing Current Severity: Mild Maximum Severity: Mild Worsened by: Nothing and - (Patient feels it may be anxiety related. No chest pain. No fever. No cough. No hemoptysis. No leg swelling.) Relieved by: Nothing Associated Symptoms Negative for cough Chest Pain: Positive for None Narrative Narrative: 33-year-old male history of anxiety for which he is on Lexapro recently new onset diabetes started around June of last year and he is a chronic heart murmur that has had for decades. He is felt short of breath for the last 2 weeks. States he is very stressed out and thinks it may be secondary to his anxiety. No history of any cardiac disease otherwise. No history of DVT or PE or risk factors. PE Risk Factors: Negative for Cancer, OCP + Smoking + > 35, Prior DVT or PE, Recent immobilization, Recent surgery or Recent travel Prior similar symptoms: Yes Recent Illness/Hospitalization: No PFSH PFSH Medical History Arthritis Diabetes mellitus, new onset Heart murmur History of back problems Irritable bowel syndrome Home Medications lancets 30 gauge and blood glucose strips combo pack #420 ea 07/09/23 [Rx Last Taken Unknown] insulin glargine 100 unit/mL (3 mL) subcutaneous pen (Lantus Solostar U-100 Insulin) 10 unit (0.1 mL) subcut BID #15 mL 08/30/23 [Rx Last Taken Unknown] empagliflozin 25 mg tablet (Jardiance) 25 mg PO DAILY #30 tabs 10/07/23 [Rx Last Taken Unknown] pen needle, diabetic 32 gauge x 5/32 (BD Ultra-Fine Diana Pen Needle) #200 ea 10/20/23 [Rx Last Taken Unknown] escitalopram oxalate 10 mg tablet (Lexapro) 10 mg PO DAILY #30 tabs 11/10/23 [Rx Last Taken Unknown] hydroxyzine HCl 25 mg tablet 25 mg PO Q8H PRN anxiety #30 tabs 11/10/23 [Rx Last Taken Unknown] Allergy/AdvReac Type Severity Reaction Status Date / Time amoxicillin Allergy Swelling Verified 12/12/23 10:30 dulaglutide [From Trulicity] AdvReac Severe Diarrhea, Verified 12/12/23 10:30 Stomach Pain, Gas Family History Father Myocardial infarction, Onset Age: 50 x2 Diabetes Peptic ulcer Mother Anxiety Depression GERD (gastroesophageal reflux disease) Grandfather Cancer NHL Uncle Cancer ? 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 Dyspnea. Review of Systems ROS Unobtainable: Denies due to encephalopathy Constitutional Constitutional ED: Denies chills or fever(s) Eyes Eyes: Denies blurry vision ENT ENT ED: Denies ear pain Cardiovascular Cardiovascular: Denies chest pain Respiratory/Chest Respiratory/Chest: Reports dyspnea; Denies cough Gastrointestinal Gastrointestinal: Denies abdominal pain, constipation, diarrhea, melena, nausea or vomiting Genitourinary Genitourinary ED: Denies dysuria or hematuria Musculoskeletal Musculoskeletal: Denies arthralgias Integumentary Denies abscess Neurologic Neurologic: Denies headache(s) Psychiatric Psychiatric: Denies anxiety Endocrine Endocrinology: Denies cold intolerance Hematologic/Lymphatic Hematologic/Lymphatic: Denies easy bleeding, easy bruising or lymphadenopathy Allergic/Immunologic Allergic/Immunologic ED: Denies mouth swelling, tongue swelling or urticaria EXAM Physical Exam Narrative Exam Narrative: Well-appearing 33-year-old male. Vital signs stable afebrile. Pulse ox 100% onroom air no signs of hypoxia. HEENT exam unremarkable. Neck nontender. No JVD. No lymphadenopathy. Lungs clear to auscultation bilaterally. No rales, rhonchi nor wheezing. Equal and symmetrical. Heart regular rate and rhythm rate about 70 3/6 systolic ejection murmur. History of a chronic murmur. Chestwall nontender. Abdomen soft nontender. Back nontender. Moving all 4 extremities. Calves are nontender without edema or cords. Normal motor strength. Neurologically is awake and alert no focal motor deficits. Const Vital Signs: 12/12/23 10:31 Temperature 97.6 F L Temperature Source Temporal Pulse Rate 72 Respiratory Rate 18 Blood Pressure 141/94 H Blood Pressure Mean 109 Pulse Ox 100 Oxygen Delivery Method Room Air Positive well nourished and well developed; Negative for cachectic, contracturesor unkempt General Appearance ED: well developed and NAD; Negative for unkempt, cachectic, contractures or pallor Nutritional Appearance: Negative for cachectic HEENT Reports moist mucous membranes; Denies dry mucous membranes atraumatic; Negative for trauma or tenderness Mouth ED: No dry mucous membranes Mouth: No dry mucous membranes Eyes PERRL and EOMs intact bilaterally General Eye ED: Negative for pale conjunctiva or scleral icterus Neck no lymphadenopathy, supple, no meningeal signs and no JVD General: Negative for tenderness Lymph Lymphatic: Negative for other Chest Wall Chest: Negative for other Resp normal respiratory effort and clear to auscultation bilaterally Effort and Inspection: Negative for pain with movement Auscultation: Negative for rales, rhonchi or wheezes Cardio regular rate, regular rhythm, S1 normal heart sound, S2 normal heart sound and no murmurs Rate: Negative for bradycardia or tachycardic Rhythm: Negative for abnormal rhythm GI non-tender, non-distended and no masses Inspection: Negative for other Auscultation: normoactive bowel sounds Palpation: soft; Negative for tender, guarding or rebound tenderness present Bladder / Kidney Exam: No other Back/Spine no CVA tenderness and normal to inspection General Back: Negative for CVA tenderness, tenderness or other Extremity normal to inspection General Extremety ED: Negative for edema, tenderness or other findings General Extremity: Negative for edema or other findings Neuro oriented x3 and CN's II-XII intact bilaterally Sensorium / Orientation: alert, oriented to person, oriented to place and oriented to time; Negative for orientation impaired, confused, lethargic or stuporous Motor Exam: strength 5/5 throughout Psych mental status grossly normal Appearance: Negative for unkempt Attitude: No agitated and No other Mood & Affect: anxious; Negative for depressed or tearful Thought Process: normal thought process Skin no wounds General Skin Exam: Negative for jaundice or pallor Lesions: no lesions Rashes: no rashes Trauma: Negative for abrasion MDM MDM MDM Narrative Medical decision making narrative: 33-year-old male history of anxiety. Complaining of dyspnea. Exam is completely normal other than he is a 3/6 systolic ejection murmur which she has had for years. Is got no signs of fluid retention. Lungs are completely clear. There is no signs of pneumonia, pulmonary edema or any wheezing. Discussed with the patient ways to reduce his anxiety and stress. He is on medications also. I offered him an EKG and chest x-ray but explained to him most likely they would be normal he deferred. He will be discharged home to follow-up with his primary care physician. I did review the labs he had done in June and July and other new onset diabetes they were unremarkable. He has no history of anemia. Discharge Plan Triage Chief Complaint: Shortness of Breath ED Provider: Dawson Newell Dx/Rx/DC Orders Clinical Impression: Anxiety, Dyspnea Instructions: Anxiety Disorders Tx Prescriptions: No Action Jardiance 25 mg tablet 25 mg PO DAILY Qty: 30 5RF escitalopram oxalate [Lexapro] 10 mg tablet 10 mg PO DAILY Qty: 30 2RF hydroxyzine HCl 25 mg tablet 25 mg PO Q8H PRN (Reason: anxiety) Qty: 30 1RF (DME) lancets-blood glucose strips 30 gauge combo pack See Rx Instructions .Route Qty: 420 1RF Rx Instructions: As directed insulin glargine [Lantus Solostar U-100 Insulin] 100 unit/mL (3 mL) insulin pen 10 unit subcut BID Qty: 15 2RF (DME) pen needle, diabetic [BD Ultra-Fine Diana Pen Needle] 32 gauge x 5/32 needle See Rx Instructions .Route Qty: 200 1RF Rx Instructions: bid Primary Care Provider: Anabella Pro Referrals: Anabella Pro MD [Primary Care Provider] - 1-2 Weeks Activity Restrictions/Additional Instructions: Your exam today is normal. Your vital signs and oxygen are normal. I think this is all related to your anxiety. Follow-up with your doctor. Consider seeing a counselor for your anxiety. Other ways to combat anxiety would be exercise, reading, meditation etc. May want to discuss with your doctor and echocardiogram for evaluation of your heart murmur. It will probably be fine though. Disposition Disposition: Home, Self Care What to do if you have Problems For any increased pain, shortness of breath, bleeding, nausea or vomiting, chestpain, or any unexpected problems, contact your Primary Care Provider. Call [facility] ([phone]) or report to the closest Emergency Room. Call 911 if necessary. 12/12/23 1119 <Electronically signed by Dawson Newell MD> Cosigner Signature (if applicable): CC: Dr. Anabella Pro MD ~ Signed [facility] Work Phone: Evaluation note* Diagnosis Onset Date Resolution Status Diabetes mellitus, new onset acute Diabetic ketoacidosis acute Nausea and vomiting acute [facility] Work Phone: Evaluation note* Diagnosis Onset Date Resolution Status Diabetes mellitus, new onset chronic Diabetic ketoacidosis resolv ed Nausea and vomiting resolved History of back problems acu te Irritable bowel syndrome acu te Mild anxiety acute DKA (diabetic ketoacidosis) noneactive Establishing care with new doctor, encounter for noneactive Uncontrolled type 2 diabetes mellitus noneactive Hospital discharge follow-up noneactive COVID-19 vaccination declined noneactive Immunization due noneactive Elevated blood pressure reading noneactive High triglycerides acute Diabetes mellitus, new onset chronic Elevated TSH chronic Obesity chronic Diabetes mellitus, new onset chronic Elevated TSH chronic Obesity chronic History of back problems acu te Irritable bowel syndrome acu te Mild anxiety acute Elevated TSH chronic Controlled type [address] [facility] Work Phone: Evaluation note* Diagnosis Onset Date Resolution Status Diabetes mellitus, new onset chronic Elevated TSH chronic Obesity chronic History of back problems acu te Irritable bowel syndrome acu te Mild anxiety acute Elevated TSH chronic Controlled type 2 diabetes mellitus noneactive Moderate major depression no neactive Severe anxiety noneactive [facility] Work Phone: Evaluation note* Diagnosis Chest tightness- Primary Other chest pain Dizziness Dizziness and giddiness documented in [facility] Diagnosis Onset Date Resolution Status History of back problems acu te Irritable bowel syndrome acu te Mild anxiety acute Elevated TSH chronic Controlled type 2 diabetes mellitus noneactive Moderate major depression no neactive Severe anxiety noneactive Diabetes chronic Elevated TSH chronic Obesity chronic History of back problems acu te Irritable bowel syndrome acu te Elevated TSH chronic Moderate major depression no neactive Severe anxiety noneactive Suspected sleep apnea noneac tive Controlled type [address] [facility] Work Phone: Evaluation note* Diagnosis Onset Date Resolution Status Admit Date Moderate major depression noneactive April 26, 2025 10:11am DAMARIS (obstructive sleep apnea) noneac tive April 26, 2025 10:11am Umbilical hernia without obstruction and without gangrene noneactive April 26, 2025 1 0:11am Severe anxiety noneactive April 26, 2025 10:11am Controlled type 2 diabetes mellitus noneactive April 26, 2025 1 0:11am Vitamin d deficiency noneactive April 26, 2025 10:11am [facility] Work Phone: Hospital Discharge instructions Additional Instructions Your exam today is normal. Your vital signs and oxygen are normal. I think this is all related to your anxiety. Follow-up with your doctor. Consider seeing a counselor for your anxiety. Other ways to combat anxiety would be exercise, reading, meditation etc. May want to discuss with your doctor and echocardiogram for evaluation of your heart murmur. It will probably be fine though.[facility] Work Phone: Hospital Discharge instructionsAmbulatory Orders* General Surgery Location: None Selected [facility] Work Phone: Summary Purpose Family History No Family History Records Found Relationship Condition Age at Onset Recorded Date/T radha Not Specified Severe allergy Unknown History of ulcer disease Unknown Arthritis Unknown Hypertension Unknown Asthma Unknown father Myocardial infarction 50 Diabetes mellitus Unknown Peptic ulcer Unknown mother Anxiety Unknown Depression Unknown Gastroesophageal reflux disease Unknown grandfather Malignant neoplasm Unknown uncle Malignant neoplasm Unknown grandfather Congestive heart failure Unknown Advance Directives No Advanced Directives Records Found Advance Directive Response Recorded Date/ Time Living Will No July 07, 2023 9:39pm Power of Data [employer] Software Consultant No June 9:39pm Advance Directive Response Recorded Date/ Time Living Will No July 07, 2023 10:38pm Power of Data [employer] Software Consultant No June 10:38pm Advance Directive Response Recorded Date/ Time Living Will No December 12 11:12am Power of Data [employer] Software Consultant No December 12, 2023 11:12am Advance Directive Response Recorded Date/ Time Living Will No December 12 12:12pm Power of Data [employer] Software Consultant No December 12, 2023 12:12pm Chief Complaint and Reason for Visit Chief Complaint DKA Reason for Visit Diabetes mellitus, n ew onset Diabetic ketoacidosis Nausea and vomiting Chief Complaint DKA DKA DKA EST NEW PT Diabetes 9 Wk FU 3 m fu Reason for Visit Diabetes mellitus, n ew onset Diabetic ketoacidosis Nausea and vomiting History of back problems Irritable bowel syndrome Mild anxiety DKA (diabetic ketoacidosis) Establishing care with new doctor, encounter for Uncontrolled type 2 diabetes mellitus Hospital discharge follow-up COVID-19 vaccination declined Immunization due Elevated blood pressure reading High triglycerides Diabetes mellitus, new onset Elevated TSH Obesity Diabetes mellitus, new onset Elevated TSH Obesity History of back problems Irritable bowel syndrome Mild anxiety Elevated TSH Controlled type 2 diabetes mellitus Chief Complaint 9 Wk FU 3 m fu ANXIETY CONCERNS SOB Reason for Visit Diabetes mellitus, n ew onset Elevated TSH Obesity History of back problems Irritable bowel syndrome Mild anxiety Elevated TSH Controlled type 2 diabetes mellitus Moderate major depression Severe anxiety Chief Complaint 3 m fu ANXIETY CONCERNS SOB 3 M FU 3 M FU HYPERSOMNIA Reason for Visit History of back prob lems Irritable bowel syndrome Mild anxiety Elevated TSH Controlled type 2 diabetes mellitus Moderate major depression Severe anxiety Diabetes Elevated TSH Obesity History of back problems Irritable bowel syndrome Elevated TSH Moderate major depression Severe anxiety Suspected sleep apnea Controlled type 2 diabetes mellitus Chief Complaint Admit Date 6 m fu April 26, 2025 10:11 am Reason for Visit Admit Date Moderate major depression April 26, 2025 10:11am DAMARIS (obstructive sleep apnea) April 26, 2025 10:11am Umbilical hernia without obstruction and without gangrene April 26, 2025 10:11am Severe anxiety April 26, 2025 10:11 am Controlled type 2 diabetes mellitus April 26, 2025 10:11am Vitamin d deficiency April 26, 2025 10:1 1am Chief Complaint Admit Date 6 m fu April 26, 2025 10:11 am Hernia May 01, 2025 9:32 am Reason for Visit Admit Date Moderate major depression April 26, 2025 10:11am DAMARIS (obstructive sleep apnea) April 26, 2025 10:11am Umbilical hernia without obstruction and without gangrene April 26, 2025 10:11am Severe anxiety April 26, 2025 10:11 am Controlled type 2 diabetes mellitus April 26, 2025 10:11am Vitamin d deficiency April 26, 2025 10:1 1am Hernia May 01, 2025 9:32 am Reason for Visit Admit Date Moderate major depression April 26, 2025 10:11am DAMARIS (obstructive sleep apnea) April 26, 2025 10:11am Umbilical hernia without obstruction and without gangrene April 26, 2025 10:11am Severe anxiety April 26, 2025 10:11 am Controlled type 2 diabetes mellitus April 26, 2025 10:11am Vitamin d deficiency April 26, 2025 10:1 1am Umbilical hernia May 01, 2025 9:32 am Hernia May 01, 2025 9:32 am Additional Source Comments (unrecognized sect ion and content) No Status Records FoundNo Status Records FoundNo Status Records Found INFORMATION SOURCE (unrecogn ized section and content) DATE CREATED AUTHOR 05/05/[address] [facility] DATE CREATED AUTHOR AUTHOR'S ORGANIZ ATION 11/19/2023 [facility] DATE CREATED AUTHOR AUTHOR'S ORGANIZ ATION [facility] Care Teams (unrecognized sec tion and content) Team Status: Active Member Role Status Dates No Primary Care Physician Family Provider Active No Primary Care Physician Primary Care Provider Active Team Status: Active Member Role Status Dates No Primary Care Physician Primary Care Provider Active Felton Fonseca MD Emergency Provider Active Dr. Abraham Montano , DO Admit Provider, Attending Provider Active Team Status: Active Member Role Status Dates No Primary Care Physician Family Provider Active Dr. Anabella Pro MD Primary Care Provider Active Team Status: Active Member Role Status Dates No Primary Care Physician Primary Care Provider Active Felton Fonseca MD Emergency Provider Active Dr. Abraham Montano , DO Admit Provider, Other Pro vider Active Dr. Tonja Lemus MD Attending Provider, Other Prov ider Active Dr. Vijay Brady MD Other Provider Active Evelin Joaquín , AGENCY CASHIER-C Other Provider Active Team Status: Inactive Member Role Status Dates No Primary Care Physician Referring Provider Active Evelin Yanes NP-C Attending Provider Active Dr. Anabella Pro MD Primary Care Provider Active Team Status: Inactive Member Role Status Dates No Primary Care Physician Primary Care Provider, Refer ring Provider Active Dr. Anabella Pro MD Attending Provider Active Team Status: Inactive Member Role Status Dates Dr. Anabella Pro MD Primary Care Pro vider, Attending Provider, Referring Provider Active Team Status: Inactive Member Role Status Dates Dr. Anabella Pro MD Primary Care Provider, Referri ng Provider Active Evelin Yanes , AGENCY CASHIER-C Attending Provider Active Team Status: Inactive Member Role Status Dates No Primary Care Physician Primary Care Provider Active Felton Fonseca MD Emergency Provider Active Dr. Abraham Montano DO Admit Provider, Other Pro vider Active Dr. Tonja Lemus MD Attending Provider Active Dr. Vijay Brady MD Other Provider Active Evelin Yanes AGENCY CASHIER-C Other Provider Active Team Status: Inactive Member Role Status Dates Dr. Anabella Pro MD Primary Care Provider, Attendi ng Provider Active Team Status: Inactive Member Role Status Dates Dr. Anabella Pro MD Primary Care Provider Active Evelin Yanes NP-C Attending Provider, Referring Pr ovider Active Team Status: Inactive Member Role Status Dates Dr. Anabella Pro MD Primary Care Provider Active Dr. Dawson Newell MD Emergency Provider Active Team Status: Inactive Member Role Status Dates Dr. Anabella Pro MD Primary Care Provider Active Dr. Dawson Newell MD Attending Provider, Emergency Pro vider Active Team Status: Active Member Role/Relationship Status Dates No Primary Care Physician Family Provider Active Dr. Anabella Pro MD Primary Care Provider Active Team Status: Inactive Member Role/Relationship Status Dates Dr. Anabella Pro MD Primary Care Provider Active Start: April 26, 2025 End: April 26, 2025 Dr. Anabella Pro MD Attending Provider Active Start: April 26, 2025 End: April 26, 2025 Dr. Anabella Pro MD Referring Provider Active Start: April 26, 2025 End: April 26, 2025 Team Status: Active Member Role/Relationship Status Dates Dr. Anabella Pro MD Primary Care Provider Active Start: April 26, 2025 Dr. Anabella Pro MD Attending Provider Active Start: April 26, 2025 Dr. Anabella Pro MD Referring Provider Active Start: April 26, 2025 Team Status: Inactive Member Role/Relationship Status Dates Dr. Anabella Pro MD Primary Care Provider Active Start: May 01, 2025 End: May 01, 2025 Dr. Anabella Pro MD Referring Provider Active Start: May 01, 2025 End: May 01, 2025 Dr. Wild Vo MD Attending Provider Active Start: May 01, 2025 End: May 01, 2025 Team Status: Active Member Role/Relationship Status Dates Dr. Anabella Pro MD Primary Care Provider Active Team Status: Inactive Member Role/Relationship Status Dates Dr. Anabella Pro MD Primary Care Provider Active Start: April 26, 2025 End: April 26, 2025 Dr. Anabella Pro MD Attending Provider Active Start: April 26, 2025 End: April 26, 2025 Dr. Anabella Pro MD Referring Provider Active Start: April 26, 2025 End: April 26, 2025 Goals (unrecognized section and content) Goals may be documented in a n alternate sectionGoals may be documented in an alternate sectionGoals may be documented in an alternate sectionGoals may be documented in an alternate sectionGoals may be documented in an alternate sectionGoals may be documented in an alternate section Source Comments (unrecognize d section and content) In the event this informatio n is protected by the Federal Confidentiality of Alcohol and Drug Abuse Patient Records regulations: The Federal rules restrict any use of the information to criminally investigate or prosecute any alcohol or drug abuse patient.[facility] FOR RECORDS PERTAINING TO PATIENTS WHO ARE OR HAVE BEEN ENROLLED IN A CHEMICAL DEPENDENCY/SUBSTANCEABUSE PROGRAM, SOME INFORMATION MAY BE OMITTED. This clinical summary was aggregated from multiple sources. Caution should be exercised in using it in the provision of clinical care. This summary normalizes information from multiple sources, and as a consequence, information in this document may materially change the coding, format and clinical context of patient data. In addition, data may be omitted in some cases. CLINICAL DECISIONS SHOULD BE BASED ON THE PRIMARY CLINICAL RECORDS. [employer] [facility]. provides no warranty or guarantee of the accuracy or completeness of information in this document.
[2025-05-15] MEDS: Lactated Ringers 1,000 ML 15 ML IV (06:47)
--- NOTE | 2025-05-15 07:02 | PRE.ANES_ITS ---
ASA Classification* ASA Classification ASA Classification: 3 Assessment & Plan Anesthesia* Anesthesia Assessment Anesthesia Assessment: Discussed sedation and/or anesthesia options, risks, benefits, and alternatives with patient/parents/legal guardian/POA. Questions invited. The patient/parents/legal guardian/POA seems to understand and agrees to proceed with anesthesia plan. Reviewed the physical assessment, medical history, allergy history and patient home medications list prior to surgery/procedure/anesthetic and documented any changes. Performed airway and anesthesia risk assessments. Anesthesia Type Anesthesia Type: General Anesthesia Focused Assessment* Temperature: 98 F Pulse Rate: 65 Blood Pressure: 123/82 Respiratory Rate: 18 Pulse Ox: 97 Airway Assessment Mouth opens: >3 cm Mallampati Score: II Labs Anesthesia Preop lab: CBC WBC 7.7 K/mm3 (4.4-11.0) 04/26/25 11:10 04/26/25 RBC 5.04 M/mm3 (4.6-6.2) 04/26/25 11:10 04/26/25 Hgb 15.6 g/dL (13.0-16.5) 04/26/25 11:10 04/26/25 Hct 45.3 % (40-54) 04/26/25 11:10 04/26/25 Plt Count 235 K/mm3 (150-450) 04/26/25 11:10 04/26/25 CHEMISTRY Potassium 4.6 mmol/L (3.3-5.1) 04/26/25 11:10 04/26/25 Sodium 137 mmol/L (133-145) 04/26/25 11:10 04/26/25 BUN 15 mg/dL (4-19) 04/26/25 11:10 04/26/25 Creatinine 0.74 mg/dL (0.70-1.20) 04/26/25 11:10 04/26/25 Glucose 101 mg/dL (70-99) H 04/26/25 11:10 04/26/25 POC Glucose 134 mg/dL (74-106) H 05/15/25 06:25 05/15/25 TSH 2.410 uIU/mL (0.358-3.740) 07/04/24 10:42 06/19 04/11 COAG Pre-Assessment Diagnosis/Proposed Procedure Planned Operative Procedure(s): UMBILICAL HERNIA POSS MESH Anesthesia History 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 When Was Last Pacemaker Check QUESTION #4 FULL TEXT: You/Your Family Experience fever (hyperthermia) with Anesthesia Last Oral Intake Last Oral intake: Last Oral Intake NPO since 05:20 05/15/25 06:20 Meds taken in AM with sips of Yes 05/15/25 06:20 water? Meds patient instructed to BUSPAR, LEXAPRO, VITAMIN D 05/15/25 06:20 take am of surgery PONV PONV - air traffic control equipment repairer: PONV - air traffic control equipment repairer Female No 05/03/25 13:10 HX of Motion Sickness No 05/03/25 13:10 HX of N/V After Surgery No 05/03/25 13:10 Non-Smoker No 05/03/25 13:10 Duration of Surgery greater No 05/03/25 13:10 than 60 minutes Number of Risk Factors PONV Score Height & Weight Height & Weight: Anesthesia: Height & Weight Height 5 ft 9 in 05/15/25 06:20 Weight: 131 kg 05/15/25 06:20 Body Mass Index (BMI) 42.6 05/15/25 06:20 Respiratory Assessment Respiratory Assessment - air traffic control equipment repairer: Respiratory Tract Infection Hx - air traffic control equipment repairer Hx Respiratory Tract Infection No 05/03/25 13:10 STOP Sleep Apnea STOP Sleep Apnea - air traffic control equipment repairer: STOP Sleep Apnea - air traffic control equipment repairer Hx Hypertension No 05/03/25 13:10 Hx Sleep Apnea Yes 05/03/25 13:10 CPAP Yes: MILD/NO MACHINE FOR 6 05/03/25 13:10 MONTHS BIPAP No 05/03/25 13:10 Do you snore loudly (louder than talking or can be heard Do you often feel tired/ fatigued/ sleepy during daytime? Has anyone observed you stop breathing during sleep? STOP Results Positive 05/03/25 13:10 QUESTION #5 FULL TEXT : Do you snore loudly (louder than talking or can be heard through closed doors)? 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: Tobacco Use History - air traffic control equipment repairer Tobacco Use Smoking Status Current every day smoker 05/03/25 13:10 Hx Tobacco Use Yes 05/03/25 13:10 Years Smoking Packs Smoked per Day Smoking Cessation Date was within the last 15 years Hx Smoking Cessation Date 08/06/22 05/03/25 13:10 Hx Smoking Cessation Counseling Hematologic Medial History Hematologic Hx - air traffic control equipment repairer: Hematologic Medical Hx - dev manager Hx of Blood Transfusion No 05/03/25 13:10 Hx of Transfusion in last 3 No 05/03/25 13:10 Months Date of Last Transfusion (if within last 3 months) Ever experience any problems No 05/03/25 13:10 with transfusion(s)? Specify any problems Hx of Preganancy in last 3 N/A 05/03/25 13:10 Months Nurse Filling Out Transfusion DSCHRIBER 05/03/25 13:10 & Questions: Date: 05/03/25 05/03/25 13:10 Time: 13:12 05/03/25 13:10 Patient unable to answer at this time (ie. confused, unrespo /Reproduction History /Reproductive History - air traffic control equipment repairer: /Reproductive Hx- air traffic control equipment repairer Hx Now No 05/03/25 13:10 Gestational Age (in weeks): EDC: Hx Hx Para Hx Section SAB No 05/03/25 13:10 Active Medications Active Medications: Current Medications Generic Name Dose Route Start Last Admin Trade Name Freq PRN Reason Stop Dose Admin Clindamycin Phosphate 900 mg in 50 mls @ 75 mls/hr 05/15/25 07:30 Cleocin IV 05/15/25 08:09 INTRAOP ONE Lactated Ringer's 1,000 mls @ 15 mls/hr 05/15/25 06:15 05/15/25 06:47 IV 15 mls/hr .Q48H DAISHA Administration PFSH Medical History Depression Anxiety Marijuana use Arthritis Diabetes Back pain Dietary restriction History of IBS Gastric reflux CPAP (continuous positive airway pressure) dependence Leg cramps Vapes nicotine containing substance Non-smoker Cardiology follow-up encounter Heart murmur Umbilical hernia Home Medications ?Medication ?Instructions ?Recorded ?Last Taken ?Type lancets 30 gauge and blood glucose #420 ea 07/09/23 Un known Rx strips combo pack hydroxyzine HCl 25 mg tablet 25 mg PO Q8H PRN anxiety #30 tabs 11/10/23 Unknown Rx pen needle, diabetic 32 gauge x #200 ea 01/28/24 Unkno wn Rx (BD Ultra-Fine Diana Pen Needle) Potassium OTC 1 tab PO DAILY 07/04/24 Unkn own History cholecalciferol (vitamin D3) 25 25 mcg PO QDAY 4 05/15/25 History mcg (1,000 unit) capsule empagliflozin 25 mg tablet 25 mg PO DAILY #90 tabs 07/1305/10/25 Rx (Jardiance) escitalopram oxalate 10 mg tablet 10 mg PO DAILY #90 t abs 04/26/25 05/15/25 Rx (Lexapro) buspirone 5 mg tablet 5 mg PO BID PRN anxiety #30 tabs 05/09/25 05/15/25 Rx Allergy/AdvReac Type Severity Reaction Status Date / Time Penicillins Allergy Severe Anaphylaxis Verified 05/15/25 06:17 dulaglutide (From [facility]) AdvReac Severe Diarrhea, Verified 05/15/25 06:17 Stomach Pain, Gas Family History Father Myocardial infarction, Onset Age: 50 x2 Diabetes Peptic ulcer Mother Anxiety Depression GERD (gastroesophageal reflux disease) Grandfather Cancer NHL Uncle Cancer ? leukemia Grandfather Congestive heart failure Other Arthritis Asthma Hx of ulcer disease Hypertension Severe allergy Surgical History Hx of tonsillectomy Social History household members: family current occupational status: employed current occupation: [employer] Smoking Status: Current every day smoker tobacco type: cigarettes and e- cigarettes Electronic Cigarette Use: not used alcohol intake: former substance use type: marijuana what type of physical activity do you participate in: walking do you feel safe at home: Yes Review of Systems (Anesthesia) ROS Narrative System reviewed and no additional complaints, except as documented.
--- NOTE | 2025-05-15 07:06 | PCM.HP.BLA ---
History and Physical Date of Admission: 05/15/25 Intake Vital Signs 04/26/2510:26 05/01/2509:48 Height 5 ft 9 in 5 ft 9 in Weight: 287 lb 288 lb 2 oz BMI 42.3 42.5 BP 124/84 H 139/85 H Blood Pressure Location Lt brachial Rt brachial Position Sitting Sitting Respiration 16 18 Pulse 62 75 Pulse Source Monitor Monitor Temp 97.4 F L 97.5 F L Temp Source Temporal Temporal Pulse Oximetry (%) 99 97 Oxygen Delivery Method room air room air Intake Visit Reasons: Hernia Chief Complaint: hernia Allergies Penicillins Allergy (Severe, Verified 05/01/25 09:49) Anaphylaxisdulaglutide (From [facility]) Adverse Reaction (Severe, Verified 05/01/25 09:49) Diarrhea, Stomach Pain, Gas Medications ?Medication ?Instructions ?Recorded ?Confirmed ?Type lancets 30 gauge and blood glucose #420 ea 07/09/23 05/01/25 Rx strips combo pack hydroxyzine HCl 25 mg tablet 25 mg PO Q8H PRN anxiety #30 tabs 11/10/23 05/01/25 Rx pen needle, diabetic 32 gauge x #200 ea 01/28/24 05/01/25 Rx 5/32 (BD Ultra-Fine Diana Pen Needle) Potassium OTC 1 tab PO DAILY PRN 07/04/24 05/01/25 History cholecalciferol (vitamin D3) 25 25 mcg PO QDAY 08/02/24 05/01/25 History mcg (1,000 unit) capsule benzonatate 200 mg capsule 200 mg PO TID PRN cough #20 caps 12/14/24 05/01/25 Rx buspirone 5 mg tablet 5 mg PO BID PRN anxiety #20 tabs 04/26/25 05/01/25 Rx empagliflozin 25 mg tablet 25 mg PO DAILY #90 tabs 04/26/25 05/01/25 Rx (Jardiance) escitalopram oxalate 10 mg tablet 10 mg PO DAILY #90 tabs 04/26/25 05/01/25 Rx (Lexapro) PFSH Medical History (Updated 05/01/25 @ 11:[address] Wild Vo MD) Umbilical hernia Heart murmur Irritable bowel syndrome History of back problems Arthritis Diabetes mellitus, new onset Surgical History Hx of tonsillectomy Family History Father Myocardial infarction, Onset Age: 50 x2 Diabetes Peptic ulcerMother Anxiety Depression GERD (gastroesophageal reflux disease)Grandfather Cancer NHLUncle Cancer ? leukemiaGrandfather Congestive heart failureOther Arthritis Asthma Hx of ulcer disease Hypertension Severe allergy Social History (Updated 05/01/25 @ 09:50 by Emani Osborn LPN) household members: family current occupational status: employed current occupation: [employer] Smoking Status: Current every day smoker tobacco type: cigarettes and e-cigarettes Electronic Cigarette Use: not used alcohol intake: former substance use type: marijuana what type of physical activity do you participate in: walking do you feel safe at home: Yes HPI HPI HPI: Patient is a 35-year-old male here for umbilical hernia. He says has been there for several years and is growing larger. He denies nausea or vomiting or fevers or chills. Exam Const General: cooperative Orientation: alert and oriented x3 HENMT Head: normal to inspection Neck Neck: normal visual inspection and full ROM Chest Chest palpation & inspection: normal inspection of the chest Resp Effort & Inspection: normal respiratory effort Auscultation: clear to auscultation bilaterally Cardio Rate: regular rate Rhythm: regular rhythm GI Inspection: non-distended Palpation: soft, hernia umbilical and nontender Skin General: no rashes or lesions noted Neuro General: patient alert and patient oriented x3 Extrem General: full ROM Psych Appearance: grossly normal Mental Status: mental status grossly normal Assessment and Plan Assessment and Plan (1) Umbilical hernia: Status: Acute Qualifiers: Obstruction and gangrene presence: without obstruction or gangrene Qualified Code(s): K42.9 - Umbilical hernia without obstruction or gangrene Plan: Patient has an umbilical hernia that is reducible. I discussed open repair with possible mesh. I discussed repairing it with mesh if it is over 1 cm in diameter. I discussed the repair with him in detail as well as the risks including but not limited to bleeding, infection, injury to underlying organs. Patient understands the risks and is willing to proceed. Wild Vo MD Pager: [facility] [address] [place] [address], [address] [place] [phone] Office: I have examined the patient and the H&P has been reviewed. There are no clinical changes since date of exam.
--- NOTE | 2025-05-15 08:11 | PCM.OPRPT ---
Operative Report (Standard) Operative Information Date of Procedure: 05/15/25 Pre-Operative Diagnosis: Umbilical hernia Post-Operative Diagnosis: Umbilical hernia Surgery/Procedure Performed: Umbilical hernia repair less than 3 cm fish cutter: Yes Experimental Machining Lab Manager: Camille Rubio Tasks completed by library circulation assistant: Opening & closing and Retracting Type of Anesthesia: General/Regional RN Documented Start/Stop Times: Operation Date: 05/15/25 07:30 Case Time Into Pre-Op 05/15/25 06:01 Anesthesia Start 05/15/25 07:30 Into Room 05/15/25 07:30 Out of Pre-Op 05/15/25 07:30 Procedure Start 05/15/25 07:50 Procedure Start Time: 07:50 Procedure Stop Time: 08:15 Select all DRAINS/GRAFTS/IMPLANTS that apply: None Estimated Blood Loss: 5 Specimen collected: No Description of surgery: Patient was brought back to the operating room and general anesthesia was induced. The abdomen was prepped and draped in usual sterile fashion. A curvilinear incision was marked inferior to the umbilicus and injected with local anesthetic. Incision was made with a scalpel and deepened to the hernia sac. The hernia sac was dissected from the surrounding attachments using electrocautery dissection. It was then reduced. The defect was less than 1 cm. The defect was closed with 2 [id number] 0 Nurolon sutures. The subcutaneous tissue was irrigated and suctioned dry. There was good hemostasis. The skin was closed with interrupted 3-0 Vicryl sutures and a running 4-0 Monocryl suture. Dermabond was applied. Patient was taken to PACU in stable condition and tolerated the procedure well. Surgical Findings: Small umbilical hernia Complications Complications: No Admit VTE Documentation VTE Mechan Device Prophylaxis: SCD's
--- NOTE | 2025-05-15 08:14 | DCINST_ITS ---
Discharge Instructions Procedure Hernia Diet Discharge Diet: Light diet - advance as tolerated Activity Discharge Activity: May Not Drive (for 2-3 days or while taking narcotic pain meds.) and May Shower (with the bandage in place 1-2 days after surgery.) Lifting Restrictions: 20 pounds for 4 weeks. Additional Activity Instructions:: Climbing stairs is fine, walking is encouraged. Sitting in bed may be uncomfortable. Sitting up using your lateral muscles (sitting up sideways) is usually more comfortable. Do not drive, work heavy equipment of sign legal documents for 24 hours. Pain medications may cause nausea, you should typically eat light foods as you take your pain medications. Pain medications may also cause constipation. If you have difficulty with this, discuss with your doctor. Alternate ibuprofen and Tylenol for pain control, oxycodone for breakthrough pain Dressing / Incision Call your doctor if your incision/area has: Continuous Slow Oozing, Sudden Increased Bleeding, Increased Pain/ Swelling, Increased Redness and Foul Smelling Discharge Call your doctor if you observe: Fever of 101 or Higher Suture Line Care: Avoid Pulling/Pushing and Avoid Pinching/Bending Remove Dressing in: 2 days (Remove clear bandages in 2 days, remove Steri-Strips in 7 to 10 days.) Follow Up Care Please Follow Up With: Wild Vo MD When: Please call to schedule 2 week follow up appointment. [phone] Test Results: Test results from this visit will be discussed in further detail at your follow- up appointment, if applicable. Discharge Plan Admission Attending Provider: Wild Vo Primary Care Provider: Anabella Pro Instructions Print Language: Tamazight Discharge Orders/Prescriptions Prescriptions: New oxycodone 5 mg Tablet 5 - 10 mg PO Q4H PRN PRN (Reason: Pain Score 4-10) 5 Days Qty: 14 0RF No Action (DME) pen needle, diabetic [BD Ultra-Fine Diana Pen Needle] 32 gauge x 5/32 needle See Rx Instructions .Route Qty: 200 1RF Rx Instructions: bid hydroxyzine HCl 25 mg tablet 25 mg PO Q8H PRN (Reason: anxiety) Qty: 30 1RF Potassium OTC 1 tab PO DAILY cholecalciferol (vitamin D3) 25 mcg (1,000 unit) capsule 25 mcg PO QDAY escitalopram oxalate [Lexapro] 10 mg tablet 10 mg PO DAILY Qty: 90 1RF Jardiance 25 mg tablet 25 mg PO DAILY Qty: 90 1RF (DME) lancets-blood glucose strips 30 gauge combo pack See Rx Instructions .Route Qty: 420 1RF Rx Instructions: As directed buspirone 5 mg tablet 5 mg PO BID PRN (Reason: anxiety) Qty: 30 1RF Referrals / Follow Up: Anabella Pro MD [Primary Care Provider] - Disposition Disposition (needs filled in before D/C Order can be placed): Home, Self Care
--- NOTE | 2025-05-15 08:27 | PCM.POST.ANE ---
Anesthesia: Postop Eval I Current Vital Signs Temperature: 97.3 F Pulse Rate: 90 Blood Pressure: 154/139 (patient moving arms) Respiratory Rate: 22 Pulse Ox: 94 Assessment Airway patent: Yes Spontaneous unlabored respirations: Yes nausea: No Vomiting: No Anesthesia Complication: No Fluid Hydration Crystalloid volume administer (ml): 1,000 Total IV fluid infused: 1,000 Progress Note Anesthesia document: Postop Eval 1 completed: Yes
--- NOTE | 2025-05-15 13:59 | POSTOPAN2_ITS ---
Anesthesia Postop Eval I Sum Postop Eval Completion status Anesthesia document: Postop Eval 1 completed: Yes Anesthesia Postop Eval I Summary Anesthesia Postop Eval I Summary: Anesthesia Postop Eval I: Assessment Summary Airway patent Yes 05/15/25 08:27 OIL [email or web address] Spontaneous unlabored Yes 05/15/25 08:27 OIL [email or web address] respirations Mental status nausea No 05/15/25 08:27 OIL [email or web address].CSIR Vomiting No 05/15/25 08:27 OIL [email or web address].CSIR Anesthesia Postop Eval I: Fluid Summary Crystalloid volume administer 1,000 05/15/25 08:27 OIL [email or web address].CSIR (ml) Colloids volume administered ( ml) Blood Product volume administered (ml) Total IV fluid infused 1,000 05/15/25 08:27 OIL [email or web address].CSIR Anesthesia Postop Eval I: Summary Notes Anesthesia Complication No 05/15/25 08:27 OIL [email or web address].CSIR Anesthesia Complication Comment: Post-operative progress note Anesthesia: Postop Eval II Evaluation Mental status: Awake Pain Level: 0 nausea: No Vomiting: No
--- NOTE | 2025-05-15 13:59 | PCM.POSTANE2 ---
Anesthesia Postop Eval I Sum Postop Eval Completion status Anesthesia document: Postop Eval 1 completed: Yes Anesthesia Postop Eval I Summary Anesthesia Postop Eval I Summary: Anesthesia Postop Eval I: Assessment Summary Airway patent Yes 05/15/25 08:27 RECEIVING [employer] OPERATOR.CSIR Spontaneous unlabored Yes 05/15/25 08:27 RECEIVING [employer]ATION OPERATOR.CSIR respirations Mental status nausea No 05/15/25 08:27 RECEIVING [employer] STATION OPERATOR.CSIR Vomiting No 05/15/25 08:27 RECEIVING [employer] STATION OPERATOR.CSIR Anesthesia Postop Eval I: Fluid Summary Crystalloid volume administer 1,000 05/15/25 08:27 RECEIVING [employer] STATION OPERATOR.CSIR (ml) Colloids volume administered ( ml) Blood Product volume administered (ml) Total IV fluid infused 1,000 05/15/25 08:27 RECEIVING [employer] STATION OPERATOR.CSIR Anesthesia Postop Eval I: Summary Notes Anesthesia Complication No 05/15/25 08:27 RECEIVING [employer] STATION OPERATOR.CSIR Anesthesia Complication Comment: Post-operative progress note Anesthesia: Postop Eval II Evaluation Mental status: Awake Pain Level: 0 nausea: No Vomiting: No
== END 2025-05-15 10:13 | disposition home or self-care (01) ==
LOC: SDC 05:42 → AC 05:43
PROVIDERS: PCP Internal Medicine; Referring Provider Surgery; Visit Provider Surgery
PROC: (CPT 49591; principal; 2025-05-15 07:15)
DX: K42.9 Umbilical hernia without obstruction or gangrene (principal); E11.9 Type 2 diabetes mellitus without complications; F17.210 Nicotine dependence, cigarettes, uncomplicated; F17.290 Nicotine dependence, other tobacco product, uncomplicated; Z79.899 Other long term (current) drug therapy; Z79.84 Long term (current) use of oral hypoglycemic drugs
CPT/HCPCS: 49591; 00830; 82962; 93005; J2405